=== PATIENT | female | born 1940 | race Caucasian/White ===

== ENCOUNTER → 2023-11-23 11:07 | Outpatient (BNVA) | payer MEDICARE, SELFPAY | PROVIDERS: PCP Family Medicine; Visit Provider Family Medicine | DX: M25.511 Pain in right shoulder (principal); Q79.60 Ehlers-Danlos syndrome, unspecified; R63.4 Abnormal weight loss; E78.5 Hyperlipidemia, unspecified; Z79.899 Other long term (current) drug therapy | CPT/HCPCS: 80053; 80061; 84443; 85025 ==

== ENCOUNTER 2023-11-30 11:20 | Emergency (ER) | payer MEDICARE, OTHER, SELFPAY ==
[2023-11-30 11:21] VITALS: PULSE 71; RESP 16; TEMP 36.7; O2SAT 95; BMI 20.5
[2023-11-30 11:29] VITALS: BP 167/107
[2023-11-30] MEDS: tetracaine 0.5% Op Soln 4 mL Btl 1 DROP EYE-RIGHT (12:05)
[2023-11-30] MEDS: fluorescein 1 mg Strip EYE-RIGHT (12:05)
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
--- NOTE | 2023-12-01 10:28 | DCPLANNER ---
I faxed all patients paperwork from this visit on 12/01/[address] Delarosa eye office in [place]. Fax number is [phone]. THis clinic will contact patient.
== END 2023-11-30 12:21 | disposition home or self-care (01) ==
PROVIDERS: Emergency Provider Emergency Medicine; PCP Family Medicine
DX: M47.816 Spondylosis without myelopathy or radiculopathy, lumbar region (principal); Z98.1 Arthrodesis status; S05.02XA Injury of conjunctiva and corneal abrasion without foreign body, left eye, initial encounter; Z79.82 Long term (current) use of aspirin; X58.XXXA Exposure to other specified factors, initial encounter
CPT/HCPCS: 99203; 99283

== ENCOUNTER → 2023-12-05 15:42 | Outpatient (BNVA) | payer MEDICARE, OTHER, SELFPAY | PROVIDERS: PCP Family Medicine; Visit Provider Family Medicine | DX: J32.9 Chronic sinusitis, unspecified (principal); I77.4 Celiac artery compression syndrome | CPT/HCPCS: 87070 ==

== ENCOUNTER → 2023-12-19 11:24 | Outpatient (BNVA) | payer MEDICARE, OTHER, SELFPAY | PROVIDERS: PCP Family Medicine; Referring Provider Family Medicine; Visit Provider Physician Assistant | DX: M19.011 Primary osteoarthritis, right shoulder | CPT/HCPCS: 73030; 99204 ==

== ENCOUNTER 2024-01-02 10:21 | Outpatient (CLI) | payer MEDICARE, OTHER, SELFPAY ==
--- NOTE | 2024-01-02 10:30 | CT_ITS ---
WS: [id number] CT RIGHT SHOULDER, NONCONTRAST HISTORY: RIGHT REVERSE TOTAL SHOULDER ARTHROPLASTY Technique: All CT scans at [facility] use at least one of these dose optimization techniques: automated exposure control; mA and/or kV adjustment per patient size (includes targeted exams where dose is matched to clinical indication); or iterative reconstruction. DLP: 223.40 mGy.cm COMPARISON: Radiographs 12/19/2023 Mild AC joint arthritis. No fracture. Moderate narrowing the glenohumeral joint. Osteophytic ridging and cupping of the glenoid. There is bone upon bone along the inferior glenoid articulation. Very sli ghtly high riding humeral head. There is a very large joint effusion surrounding the humeral head. Th ere is fluid extending into the subscapularis recess with subacromial and subdeltoid bursal distentio n. Severe atrophy of the rotator cuff muscles, including the infraspinatus, supraspinatus and subscapula ris. The teres minor with only mild atrophy. There is a large amount of fluid extending along the bod y of the subscapularis tendon. IMPRESSION: 1. Moderate to severe glenohumeral joint narrowing and arthropathy. 2. Mild AC joint arthritis. 3. Marked atrophy of the rotator cuff muscles. Least involvement of the teres minor. 4. Large amount of fluid surrounding the humeral head. Numerous bursa are distended and there is a l arge amount of fluid extending along the subscapularis tendon.
== END 2024-01-02 10:22 | disposition home or self-care (01) ==
LOC: RAD 10:21
PROVIDERS: PCP Family Medicine; Visit Provider Physician Assistant
DX: M19.011 Primary osteoarthritis, right shoulder (principal); M62.511 Muscle wasting and atrophy, not elsewhere classified, right shoulder; M25.411 Effusion, right shoulder
CPT/HCPCS: 73200

== ENCOUNTER → 2024-01-09 16:06 | Outpatient (BNVA) | payer MEDICARE, OTHER, SELFPAY | PROVIDERS: PCP Family Medicine; Visit Provider Family Medicine | DX: Z01.818 Encounter for other preprocedural examination (principal) | CPT/HCPCS: 80053; 81003; 85025 ==

== ENCOUNTER → 2024-01-10 | Outpatient (BNVA) | payer MEDICARE, OTHER, SELFPAY | PROVIDERS: PCP Family Medicine; Visit Provider Family Medicine | DX: Z01.818 Encounter for other preprocedural examination (principal); Z79.899 Other long term (current) drug therapy | CPT/HCPCS: 87086 ==

== ENCOUNTER → 2024-01-16 09:10 | Outpatient (BNVA) | payer MEDICARE, OTHER, SELFPAY | PROVIDERS: PCP Family Medicine; Visit Provider Anesthesiology Pain Medicine | DX: Z98.1 Arthrodesis status; M47.816 Spondylosis without myelopathy or radiculopathy, lumbar region | CPT/HCPCS: 99214 ==

== ENCOUNTER 2024-01-22 18:16 | Observation (INO) | payer MEDICARE, OTHER, SELFPAY ==
[2024-01-22] VITALS (14 sets, daily range): BP systolic 119–193; BP diastolic 64–95; PULSE 59–109; RESP 11–20; TEMP 36.1–37.4; O2SAT 90–98; BMI 19.9
[2024-01-22] MEDS: lactated ringers 500 ML IV (12:42)
[2024-01-22] MEDS: sodium chloride 0.9% 1,000 ML 30 ML IV (12:42)
[2024-01-22] MEDS: acetaminophen 1,000 MG/100 ML PIGGYBACK 400 MG IV (12:43)
[2024-01-22] MEDS: scopolamine 1.5 Patch 1 PATCH TRANSDERMA (12:49)
[2024-01-22] MEDS: ketorolac 30 mg/mL INJ IVP (12:50)
[2024-01-22 13:34] LABS: Basophils # 0.1 10^3/uL (0.0-0.1); Basophils % 1.1 %; Eosinophils # 0.2 10^3/uL (0.0-0.8); Eosinophils % 2.9 %; Hematocrit 37.7 % (36-47); Lymphocytes # 1.6 10^3/uL (0.8-4.8); Lymphocytes % 28.2 %; Mean Corpuscular HGB Conc 32.6 g/dL (30-55); Mean Corpuscular Hemoglobin 31.9 pg (27-33); Mean Corpuscular Volume 97.9 fl (85-98); Mean Platelet Volume 9.6 fL (7.4-10.4); Monocytes # 0.4 10^3/uL (0.2-0.9); Monocytes % 7.7 %; Neutrophils # 3.34 10^3/uL (1.8-7.7); Neutrophils % 59.9 %; Nucleated Red Blood Cells % 0 %; Platelet Count 276 10^3/cmm (157-399); Red Blood Count 3.85 10^6/uL (3.85-5.65); Red Cell Distribution Width 13.4 % (12.1-15.1); White Blood Count 5.57 10^3/uL (3.29-11.43)
[2024-01-22] MEDS: midazolam 1 mg/mL INJ 2 mL 2 MG IVP (13:55)
[2024-01-22 13:59] LABS: Anion Gap 14.9 (5-19); Blood Urea Nitrogen 9 mg/dL (8-23); Calcium 8.9 mg/dL (8.5-10.5); Carbon Dioxide 29 mmol/L (22-29); Chloride 101 mmol/L (98-107); Glucose 92 mg/dL (65-115); Osmolality Calculated 290 mOsm/kg (285-295); Potassium 3.9 mmol/L (3.5-5.1); Sodium 141 mmol/L (136-145)
--- NOTE | 2024-01-22 14:08 | SUR.PREOP ---
1359-Patient connected to monitor and a timeout was completed at bedside with Dr Galeas. A block was performed to right shoulder Patient tolerated well
--- NOTE | 2024-01-22 14:27 | ANES.PREANE2 ---
Pre-Anesthetic Assessment Height/Weight: Height 1.57 m Weight 49.442 kg Temp Pulse Resp BP Pulse Ox O2 Del Method 99.3 F 88 17 119/83 93 Room Air 01/22/24 12:21 01/22/24 12:21 01/22/24 12:21 01/22/24 12:21 01/22/24 12:21 01/22/24 12:21 Operation Date: 01/22/24 13:40 Proposed Procedures p Total Reverse Shoulder Arthroplasty(Right) - Lokesh Chase, DO Was Beta Olivier taken within 24 hours: N/A Was Clonidine taken within 24 hours: N/A Last intake: Intake Last Liquid Date 01/21/24 Last Liquid Time 20:00 Last Solid Date 01/21/24 Last Solid Time 20:00 Social No alcohol and No tobacco Exam alert, oriented x 3, clear to auscultation bilaterally and regular rate & rhythm Airway Submandibular: within normal limits Cervical ROM: Other Mallampati: Class II Dentition: false Comments: Comments: Limited neck ROM. Upper denture, lower bridge History/ROS No significant history except as noted and No significant complaints CV/HEM Hypertension Metabolic Hyperlipidemia [facility] [place]/skel Doc Danlos syndrome Anesthetic Plan ASA status: 3 Anesthesia: General and Regional (specify below) Other: Interscalene block for post-op pain Risk of > 500 ml blood loss (7ml/kg in children): No Medications/Allergies Home Medications Medication Instructions Recorded Confirmed Last Taken Type ascorbate calcium (vitamin C) 500 500 mg PO DAILY 11/23/23 01/22/24 01/20/24 History mg tablet atorvastatin 20 mg tablet 20 mg PO DAILY 11/23/23 01/22/24 01/22/24 06:00 History azelastine 137 mcg (0.1 %) nasal 2 spray intranasal BID 11/23/23 01/22/24 01/21/24 History spray aerosol carisoprodol 350 mg tablet 350 mg PO DAILY 11/23/23 01/22/24 01/21/24 History cholecalciferol (vitamin D3) 325 325 mcg PO DAILY 11/23/23 01/22/24 01/21/24 History mcg (13,000 unit) capsule diltiazem HCl 240 mg capsule,24 240 mg PO QAM 11/23/23 01/22/24 01/22/24 06:00 History hr,extended release gabapentin 100 mg capsule 100 mg PO DAILY 11/23/23 01/22/24 01/21/24 History isosorbide mononitrate 60 mg 60 mg PO QAM 11/23/23 01/22/24 01/21/24 History tablet,extended release 24 hr loratadine 10 mg tablet (Allergy 10 mg PO DAILY 11/23/23 01/22/24 01/21/24 History Relief (loratadine)) meloxicam 7.5 mg tablet 7.5 mg PO DAILY 11/23/23 01/22/24 01/21/24 History polyethylene glycol 3350 17 4 g PO DAILY 11/23/23 01/22/24 01/20/24 History gram/dose oral powder (Miralax) quercetin 500 mg capsule 500 mg PO DAILY 11/23/23 01/22/24 01/21/24 History tramadol 50 mg tablet 50 mg PO BID PRN Pain 11/23/23 01/21/24 01/19/24 History triprol-PE 10 mg-DM 20 mg-acetamin 20 ml PO DAILY 11/23/23 01/21/24 Unknown History 650 mg-GG 400mg/20mL(d) liquids,seq (Mucinex Fast-Max Cold-Nghtft) vitamin B complex (B 1 tab PO DAILY 11/23/23 01/22/24 01/21/24 History Complex-Vitamin B12 tablet) zinc acetate 25 mg (zinc) capsule 25 mg PO DAILY 11/23/23 01/21/24 01/18/24 History Allergies Allergy/AdvReac Type Severity Reaction Status Date / Time vancomycin Allergy Intermediate Rash Verified 01/22/24 12:09 Current Medications Generic Name Dose Route Start Last Admin Trade Name Freq PRN Reason Stop Dose Admin Sodium Chloride 1,000 mls @ 30 mls/hr 01/22/24 12:15 01/22/24 12:42 Sodium Chloride 0.9% IV 01/23/24 12:14 30 mls/hr .Q24H KVNG Administration Midazolam HCl 2 mg 01/22/24 12:01 01/22/24 13:55 Midazolam 1 Mg/Ml Inj 2 Ml IVP 2 mg ONCE PRN Administration Preop Anxiety PFSH Anesthesia Medical History Doc-Danlos disease Family History Father Doc-Danlos syndrome Mother Alcohol dependence Social History Smoking and tobacco/nicotine status: never used tobacco/nicotine Alcohol intake: current Alcohol type: beer Substance/Drug Use: never Lives independently: Yes Household members: none Number of children: 4 Current occupational status: 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
--- NOTE | 2024-01-22 14:41 | W.PM.OPSFHP ---
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 PLANNED PROCEDURE: Operation Date: 01/22/24 13:40 Proposed Procedures p Total Reverse Shoulder Arthroplasty(Right) - Lokesh Lopez DO Medications/Allergies* Home Medications Medication Instructions Recorded Confirmed Type ascorbate calcium (vitamin C) 500 500 mg PO DAILY 11/23/23 01/22/24 History mg tablet atorvastatin 20 mg tablet 20 mg PO DAILY 11/23/23 01/22/24 History azelastine 137 mcg (0.1 %) nasal 2 spray intranasal BID 11/23/23 01/22/24 History spray aerosol carisoprodol 350 mg tablet 350 mg PO DAILY 11/23/23 01/22/24 History cholecalciferol (vitamin D3) 325 325 mcg PO DAILY 11/23/23 01/22/24 History mcg (13,000 unit) capsule diltiazem HCl 240 mg capsule,24 240 mg PO QAM 11/23/23 01/22/24 History hr,extended release gabapentin 100 mg capsule 100 mg PO DAILY 11/23/23 01/22/24 History isosorbide mononitrate 60 mg 60 mg PO QAM 11/23/23 01/22/24 History tablet,extended release 24 hr loratadine 10 mg tablet (Allergy 10 mg PO DAILY 11/23/23 01/22/24 History Relief (loratadine)) meloxicam 7.5 mg tablet 7.5 mg PO DAILY 11/23/23 01/22/24 History polyethylene glycol 3350 17 4 g PO DAILY 11/23/23 01/22/24 History gram/dose oral powder (Miralax) quercetin 500 mg capsule 500 mg PO DAILY 11/23/23 01/22/24 History tramadol 50 mg tablet 50 mg PO BID PRN Pain 11/23/23 01/21/24 History triprol-PE 10 mg-DM 20 mg-acetamin 20 ml PO DAILY 11/23/23 01/21/24 History 650 mg-GG 400mg/20mL(d) liquids,seq (Mucinex Fast-Max Cold-Nghtshft) vitamin B complex (B 1 tab PO DAILY 11/23/23 01/22/24 History Complex-Vitamin B12 tablet) zinc acetate 25 mg (zinc) capsule 25 mg PO DAILY 11/23/23 01/21/24 History Allergies/Adverse Reactions Allergy/AdvReac Type Severity Reaction Status Date / Time vancomycin Allergy Intermediate Rash Verified 01/22/24 12:09 Current Medications: Generic Name Dose Route Start Last Admin Trade Name Freq PRN Reason Stop Dose Admin Sodium Chloride 1,000 mls @ 30 mls/hr 01/22/24 12:15 01/22/24 12:42 Sodium Chloride 0.9% IV 01/23/24 12:14 30 mls/hr .Q24H KVNG Administration Midazolam HCl 2 mg 01/22/24 12:01 01/22/24 13:55 Midazolam 1 Mg/Ml Inj 2 Ml IVP 2 mg ONCE PRN Administration Preop Anxiety Pertinent History/Comorbid Conditions* Medical History (Updated 12/19/23 @ 12:49 by PORTIA Greene) Doc-Danlos disease Family History (Updated 11/23/23 @ 10:36 by Halley العلي MD) Alcohol dependence Mother Doc-Danlos syndrome Father Social History Smoking and tobacco/nicotine status: never used tobacco/nicotine Alcohol intake: current Alcohol type: beer Substance/Drug Use: never Lives independently: Yes Household members: none Number of children: 4 Current occupational status: 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 Patient also just preoperatively received a preoperative block unable to fully assess motor and sensory preop. Referred to most recent office H&P for full examination Recommendations Surgery/Procedure today Other Plans: Plan to proceed to the OR today for right reverse total shoulder arthroplasty. She understands the ins and outs procedure risk benefits complication alternatives with surgery and through shared decision make elects proceed with surgical intervention. All questions answered. Coding Level of Care Code Acute Code for Edwin Paige
[2024-01-22] MEDS: ceFAZolin 2,000 MG in sodium chloride 0.9% (plus) 50 ML 100 MG IV ×3 (15:20→22:29)
[2024-01-22] MEDS: tranexamic acid 1,000 mg/10mL SDV 1000 MG IV (15:55)
--- NOTE | 2024-01-22 18:22 | XRR_ITS ---
PROCEDURE INFORMATION: Exam: XR Right Shoulder Exam date and time: 01/22/2024 6:32 PM Age: 83 years old Clinical indication: Device placement; Joint fixation hardware; Prior surgery; Surgery date: Post-operative (0-2 days); Surgery type: Post op RT shoulder; Additional info: S/P R reverse tsa, ap, grashey, scap y TECHNIQUE: Imaging protocol: Radiologic exam of the right shoulder. Views: 2 or more views. COMPARISON: CT shoulder RT wo con* [id number] 01/02/2024 10:39 AM FINDINGS: Bones/joints: Right shoulder arthroplasty changes in place with probable postsurgical air. Soft tissues: Normal. XR/XR shoulder RT min 2V* [id number] IMPRESSION: Right shoulder arthroplasty changes in place with probable postsurgical air.
--- NOTE | 2024-01-22 18:25 | P.OP_ITS ---
Operative Report Date of procedure: January 22, 2024 Surgeon: Lokesh Lopez DO Procedure: Surgeon: Lokesh Lopez DO Clinical Immunologist: Vick Lopez PA-C: PA was necessary for assistance in this case with arm positioning retraction and protection of neurovascular structures as well as assistance in implantation wound closure and dressing application. 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 Same Procedure done:? Right?reverse?total shoulder arthroplasty Implants:? [employer]?reverse?total shoulder arthroplasty comprehensive system Size 11 mm mini humeral stem 36 mm glenosphere diameter +3.5 mm offset Glenosphere mini baseplate medium augmented Central screw?6.5 mm by 20 mm Fixed locking screws (25 mm, 15 mm, 15 mm, 15 mm) Standard mini humeral tray with +0 mm polyethylene thickness Surgeon:? Lokesh Lopez DO Estimated blood loss:? 100mL IV fluids:? See anesthesia record Urine output:? No Grewal Complications:? None Findings:? See operative report narrative Condition: stable Disposition: floor Brief History:? Pt is a pleasant 83-year-old female who is worked up in the outpatient setting for chronic Right shoulder arthrtitis.? Pt has failed conservative treatment and? was interested in further treatment options we talked about? continued nonoperative versus operative intervention given pt age as well as rotator cuff weakness and dysfunction on examination would recommend a Right?reverse?total shoulder arthroplasty.? Pt has been medically optimized and cleared for surgery by the anesthesia department.? Through shared decision-making pt like to proceed with a Right?reverse?total shoulder arthroplasty.? All questions been answered at this time once again pt understands the risk benefits complication alternatives the treatment option understanding risk of surgery pt agrees to proceed.? All questions answered. Procedure:? Patient seen evaluated in the preoperative holding area.? Consent was reviewed and signed with patient once again detailed out the ins and outs of the procedure.? Correct extremity was marked.? Final questions answered.? Patient was seen evaluated by Anesthesia Department once cleared for surgery pt was taken back to the operative suite.? pt was placed in supine position all bony prominences well-padded patient was appropriate secured to the bed pt underwent anesthesia per the anesthesia department once appropriately anesthetized he was then subsequently set into a lazy beachchair position utilizing our standard OR table.? Once we confirmed appropriate positioning we then subsequently prepped and draped the Right upper extremity in standard orthopedic fashion.? Final timeout performed.? Patient received appropriate preoperative antibiotics. Standard deltopectoral approach was then made just lateral to the coracoid.? Hydrogen peroxide was bathed over the initial skin incision for P acnes prevention and then wiped with a wet Ray-Nina to clear this off. I utilized electrocautery to maintain exact hemostasis throughout my dissection.? I subsequently identified the cephalic vein dissected this out carefully and this was taken medially with Cobell retractor and I entered the deltopectoral interval.? Next I released the clavipectoral fascia and at this point time identified the bicep tendon.? This was then isolated and I opened up the bicipital groove within the interval taken this all the way to its insertion site.? I subsequently released the bicep tendon all this was subsequently maintained I then performed under appropriate tension of bicep tenodesis to the pectoralis muscle and fascia.? The proximal end of the tendon was then resected.? Of note patient had significant attenuation of subscapularis tendon as well as tearing of rotator cuff.? I then subsequently performed a subscapularis remanent peel off of the lesser tuberosity this was tagged with 0 Vicryl suture and utilized for manipulation throughout the case.? I then subsequently performed a complete release in standard fashion with care to stay directly onto bone and protecting maxillary nerve throughout the case.? Once standard residual release was performed I then protected the entirety of the humeral head and subsequently began with my humeral stem prep. Canal finder was used just off the articular margin and canal centralizer was satisfactory.? I then subsequently broached up to appropriate depth and canal fit which was determined to be 11.? 11 canal reamer was left on and subsequently brought in plan to guide of 30 degrees retroversion was then placed with my cutting guide pinned into appropriate position and making sure my rotation and version was appropriate once satisfactory and pinned in the place the intramedullary canal reamer was then subsequently removed and an oscillating saw was then used to perform my humeral head resection.? This was then subsequently removed.? I then sequentially broached up to appropriate size which was a size 11 mm humeral stem with care to once again maintained my appropriate version.? Once I was satisfied with this I then placed the metal cap on the stem in place to maintain appropriate integrity of the humeral head while performing work on the glenoid.??Next proceeded with glenoid exposure Next I then placed appropriate retraction posterior inferior posterior superior as well as anterior.? I had excellent visualization of the glenoid at this point time musa my appropriate position.? I utilized electrocautery and remove the entirety of the labrum so I had full visualization of the glenoid.? I then utilized the [employer] comprehensive targeting guide within 10 degree tilt.? Central guidepin was then inserted and confirmed to be in appropriate position, once satisfied with this placement I then introduced my reamer.given patient's severe arthritis and where patient had considerable glenoid retroversion as well as superior inclination of the glenoid. As result it was determined patient would need a medium augmented baseplate. I then subsequently utilized [employer] system for augmented reaming. This was utilized as I was concerned further reaming would weaken patient's glenoid and he is already medialized quite a bit from his preoperative x-rays. As result I only reamed 50% of the inferior portion of the glenoid in preparation then utilized [employer] augmented reaming guides this subsequently had appropriate scraping of the superior border of the glenoid to accommodate for my medium baseplate. I then subsequently opened up our porous glenosphere mini baseplate with medium augmented this was impacted in appropriate position and rotation next I then subsequently drilled and measured my central screw and placed in appropriate length 20 mm central screw.? This had excellent fixation and purchase.? At this point time I are removed any small residual osteophytes inferiorly and at this point then I subsequently drilled measured and placed 4 locking screws circumferentially around the mini baseplate size screws were 25 mm, 15 mm, 15 mm, 15 mm.? These all had excellent fixation and I satisfied with baseplate .? Patient had excessive fights anteriorly as well as inferior hide utilize rongeur to rongeur off these fights to accommodate for appropriate seating of the glenosphere. standard 36 mm glenosphere and set this with 3.5 mm of inferior offset to help appropriately cover the inferior aspect of the glenoid. Next I then opened up our glenosphere 36 diameter set this to the appropriate offset D giving us roughly 3.5 mm of offset inferiorly this was then impacted and had excellent fixation.? Utilize a tonsil as well as by hand and the glenosphere was found to have excellent fixation on the glenoid baseplate. I then subsequently trialed with a standard humeral tray. And then I subsequently placed the appropriate trial humeral tray which was trialed with a standard offset onto my trial 11 mm humeral stem this was subsequently reduced.? I attempted to trial with a +3 and this was significantly to tight and could not even be reduced and as result determined patient standard offset would be appropriate as he had excellent range of motion and excellent stability. ? This was determined to be my final implant.? I then subsequently dislocate the shoulder.? I then subsequently removed the trial implantations of the humerus.? Final implants were called and open for of a size 11 mini humeral stem as well as a +0 polyethylene and mini humeral tray.? This was opened and set up appropriately on the back table.? I then subsequently impacted the mini humeral stem size 11 and appropriate position which was exact as our trial implantation once again maintaining our appropriate version that was preset and marked and then next I subsequently dried the trunnion and impacted the appropriate humeral tray with +0 mm thickness poly.? This was then subsequently reduced and had excellent fixation range of motion and stability with appropriate tensioning.? No evidence of instability was noted.? Perform thorough irrigation of the joint saline. Vanco powder was not used secondary to patient's allergy. I then subsequently closed the subcutaneous layer with 0 and 2-0 Vicryl suture a and jemma. A AILEEN dressing was then applied.? Sling applied. Patient was then awakened from anesthesia and taken to PACU in stable condition.? Patient tolerated procedure without any complications. Disposition: Patient taken to PACU in stable condition recovering well will be admitted to the floor postoperatively internal medicine will be on board for medical management.? Patient will be nonweightbearing to the Right shoulder.? Sling on in place.? Patient will receive appropriate postoperative pain medication DVT prophylaxis on the floor.? Will receive appropriate discharge structure as well as pain medication DVT prophylaxis.? We will work with PT/OT.?Patient to follow-up with me in the office in 2 weeks.
--- NOTE | 2024-01-22 18:49 | P.BOP_ITS ---
Date of Procedure: [January 22, 2024] Surgeon: [Dr. Lopez DO] [place] Operator(s): [Vick Lopez PA-C] Procedure(s) performed: [Right reverse total shoulder arthroplasty] Findings of the procedure(s): [Right rotator cuff arthropathy and arthritis of right glenohumeral joint] Estimated blood loss: [100 ml] Specimen(s) removed: [Humeral head] Post-operative diagnosis: [Right rotator cuff arthropathy and arthritis of right glenohumeral joint]
--- NOTE | 2024-01-22 18:51 | PM.PACU ---
PACU note Narrative: Patient is an 83-year-old female just underwent a right reverse total shoulder arthroplasty. Patient transferred to PACU in stable condition. Pain is well controlled. shoulder Dressing on , dry and in place. Patient's operative arm is in a shoulder immobilizer. Patient is awake and alert and able to respond to my questions accordingly. Patient's fingers are warm with good perfusion. pt able to wiggle fingers. Normal cap refill under 2 seconds. Unable to assess further range of motion in arm due to sling. Unable to assess sensation due to residual localized anesthetic. Exam: awake Disposition: admitted
--- NOTE | 2024-01-22 19:56 | ANE.PACU2 ---
Inpatient post-anesthesia follow up: Airway intact: Yes Vital signs: Temperature 97.4 F Pulse Rate 82 Respiratory Rate 14 Blood Pressure 151/72 Pulse Oximetry 91 Oxygen Delivery Me thod Nasal Cannula Oxygen Flow Rate 6 Fraction of Inspir ed Oxygen Hydration adequate: Yes Nausea and vomiting: No Pain level: Other Pain level: Denies pain Mental status: Baseline
[2024-01-22] MEDS: tranexamic acid 1,000 MG/100 ML PREMIX 600 MG IV (21:50)
--- NOTE | 2024-01-22 22:03 | PC.NURSE ---
Patient refusing SCDs, Tylenol, and the rest of post-op vitals. Patient wanting to leave AMA approximately 2129. Patient stated I'm going home. This is not care. Look at these blankets. I can take better care of myself at home. Patient had asked for more blankets twice earlier in shift, stating that she was cold. Nurse provided blankets and OUTDOOR EDUCATION TEACHER provided blankets later as well per patient request. Patient now asking for blankets to be removed. I stated to patient I would be happy to to help you take some of the blankets off. Patient also stated I called for help and nobody came. Patient's call light was not going off. Patient stated, I had to walk myself to the bathroom, I had to go so bad I couldn't stand it, and I had to clean my own shit off the toilet. I, again, stated to patient I would have been happy to help with that, but your call light was not going off. Patient reeducated how to use call light and I tied it around bed rail to prevent it from falling or getting lost, as patient also stated that she could not find her call light in all of the blankets. Patient got to the floor from surgery approximately 1929. Since getting to the floor from surgery, patient had been taken to the bathroom once by the OUTDOOR EDUCATION TEACHER and once by this nurse. I personally had been in the patient's room two times in the period between 1929 and 2129. OUTDOOR EDUCATION TEACHER, [place], states she was in the patient's room 5 times in that period. OUTDOOR EDUCATION TEACHER had provided patient with jello and water. Patient states she just sat the jello there and walked off. I asked patient if she needs help opening the jello and she stated no, I can get it. Dr. Lopez notified of patient wanting to leave AMA, and stated tell the patient I highly advise against it. Patient educated on need for post-op antibiotics and physical therapy to prevent complications. Patient agreed to stay. Patient stated I understand. I have a daughter that is a nurse and I know you guys are understaffed. Patient asking for something to help her sleep. Dr. Lopez notified and ordered MAVERICK Cedeno.
[2024-01-22] MEDS: lactated ringers 1,000 ML 75 ML IV (22:29)
[2024-01-22] MEDS: methocarbamol 500 mg Tablet PO (22:55)
[2024-01-22] MEDS: oxyCODONE 5 mg IR Tab/Cap PO (22:55)
[2024-01-23] VITALS (7 sets, daily range): BP systolic 133–171; BP diastolic 62–69; PULSE 70–93; RESP 16–18; TEMP 36.6–36.9; O2SAT 92–96
[2024-01-23] MEDS: HYDROmorphone 1 mg/mL INJ 1 mL IVP ×2 (01:03→04:07)
[2024-01-23] MEDS: HYDROmorphone 1 mg/mL INJ 1 mL 0.5 MG IVP (02:03)
--- NOTE | 2024-01-23 02:34 | P.CONIM_ITS ---
Providers/Reason For Consult 2 Consulting Physician/Specialty*: Marcia Suero MD/ Hospitalist Reason for Consult*: management of medical comorbidities Requesting Physician: Lokesh Lopez DO Attending Physician: Lokesh Lopez DO Primary Care Provider: Halley العلي MD History of Present Illness History of Present Illness Aga Lennon is a 83 year old female with a past medical history of Erler's Danlos syndrome, ? A fib vs SVT , h/o DVT , celiac trunk stenosis , recently moved to [place] from [place]. Currently admitted to the hospital on January 22, 2024 for a planned total reverse shoulder arthroplasty for severe degenerative joint disease. Patient underwent this procedure earlier today, tolerated it well, estimated blood loss of 100 cc. Hospitalist service consulted for management of medical comorbidities. Currently she is c/o pain at surgical site, 0.5 mg of Dilaudid IV has not helped her currently. Typically patient takes oxycodone 10 mg twice daily at home to help with chronic pain. Denies any complains of chest pain dyspnea palpitations syncope nausea vomiting or diarrhea at this present time. No recent fever or chills. Review of Systems 2 General: Reports: 10 or more systems reviewed and unremarkable except in HPI and below Const: Denies: fever(s), chills or body aches Eyes: Denies: change in vision, blurry vision or photophobia ENMT: Reports: hoarseness; Denies: throat pain, enlarged tonsils, odynophagia or nasal congestion Card: Denies: chest pain, palpitations, irregular heart rhythm, edema, swelling of feet/ankles, lightheadedness, pre-syncope, dyspnea on exertion or orthopnea Resp: Denies: dyspnea, productive cough, non-productive cough, wheezing, stridor, pain on inspiration, change in phlegm color, hemoptysis or chest congestion GI: Denies: abdominal pain, nausea, vomiting, hematemesis, coffee ground emesis, dysphagia, heartburn, diarrhea, constipation, GI cramping, change in stool character, hematochezia or melena : Denies: flank pain, difficulty voiding, dysuria, urinary frequency, urinary urgency, urinary hesitancy or hematuria Musc: Denies: neck pain, back pain, extremity pain, joint swelling, joint warmth or deformity Neuro: Denies: headache(s), numbness in extremities, weakness in extremities, sensory changes, difficulty walking, frequent falls, dizziness, vertigo, behavioral changes, Slurred speech present or seizure-like activity Psych: Denies: anxiety, depression, suicidal ideation or homicidal ideation Endo: Denies: polyuria, polydipsia, tired all the time, cold intolerance or hot flashes Clay/Lymph: Denies: easy bruising or easy bleeding Medications/Allergies Home Medications Medication Instructions Recorded Confirmed Last Taken Type ascorbate calcium (vitamin C) 500 500 mg PO DAILY 11/23/23 01/22/24 01/20/24 History mg tablet atorvastatin 20 mg tablet 20 mg PO DAILY 11/23/23 01/22/24 01/22/24 06:00 History azelastine 137 mcg (0.1 %) nasal 2 spray intranasal BID 11/23/23 01/22/24 01/21/24 History spray aerosol carisoprodol 350 mg tablet 350 mg PO DAILY 11/23/23 01/22/24 01/21/24 History cholecalciferol (vitamin D3) 325 325 mcg PO DAILY 11/23/23 01/22/24 01/21/24 History mcg (13,000 unit) capsule diltiazem HCl 240 mg capsule,24 240 mg PO QAM 11/23/23 01/22/24 01/22/24 06:00 History hr,extended release gabapentin 100 mg capsule 100 mg PO DAILY 11/23/23 01/22/24 01/21/24 History isosorbide mononitrate 60 mg 60 mg PO QAM 11/23/23 01/22/24 01/21/24 History tablet,extended release 24 hr loratadine 10 mg tablet (Allergy 10 mg PO DAILY 11/23/23 01/22/24 01/21/24 History Relief (loratadine)) meloxicam 7.5 mg tablet 7.5 mg PO DAILY 11/23/23 01/22/24 01/21/24 History polyethylene glycol 3350 17 4 g PO DAILY 11/23/23 01/22/24 01/20/24 History gram/dose oral powder (Miralax) quercetin 500 mg capsule 500 mg PO DAILY 11/23/23 01/22/24 01/21/24 History tramadol 50 mg tablet 50 mg PO BID PRN Pain 11/23/23 01/21/24 01/19/24 History triprol-PE 10 mg-DM 20 mg-acetamin 20 ml PO DAILY 11/23/23 01/21/24 Unknown History 650 mg-GG 400mg/20mL(d) liquids,seq (Mucinex Fast-Max Cold-Nghtshft) vitamin B complex (B 1 tab PO DAILY 11/23/23 01/22/24 01/21/24 History Complex-Vitamin B12 tablet) zinc acetate 25 mg (zinc) capsule 25 mg PO DAILY 11/23/23 01/21/24 01/18/24 History Allergies Allergy/AdvReac Type Severity Reaction Status Date / Time vancomycin Allergy Intermediate Rash Verified 01/22/24 12:09 Current Medications Generic Name Dose Route Start Last Admin Trade Name Freq PRN Reason Stop Dose Admin Acetaminophen 1,000 mg 01/22/24 19:57 01/22/24 21:50 Acetaminophen 500 Mg Tablet PO Not Given Q8H KVNG Chlorhexidine Gluconate 30 ml 01/22/24 21:00 01/22/24 21:32 Chlorhexidine Gluconate 0.12% Btl 473 Ml MUCOUS MEM Not Given QID KVNG Hydromorphone HCl 0.5 - 1 mg 01/22/24 19:57 01/23/24 01:03 Hydromorphone 1 Mg/Ml Inj 1 Ml IVP 0.5 mg Q3H PRN Administration Pain not managed by oral agent Sodium Chloride 1,000 mls @ 100 mls/hr 01/22/24 18:30 01/23/24 00:03 Sodium Chloride 0.9% IV 01/23/24 18:29 Not Given .Q10H KVNG Cefazolin Sodium 2,000 mg/ 50 mls @ 100 mls/hr 01/22/24 19:57 01/22/24 23:26 Sodium Chloride IV 01/23/24 13:59 Infused Q8H KNVG Infusion Protocol Lactated Ringer's 1,000 mls @ 75 mls/hr 01/22/24 19:57 01/22/24 22:29 Lactated Ringers IV 75 mls/hr .[id number] KVNG Administration Methocarbamol 500 mg 01/22/24 22:01 01/22/24 22:55 Methocarbamol 500 Mg Tablet PO 500 mg TID PRN Administration MUSCLE SPASMS Oxycodone HCl 5 - 10 mg 01/22/24 19:57 01/22/24 22:55 Oxycodone 5 Mg Ir Tab/Cap PO 5 mg Q4H PRN Administration Moderate To Severe Pain 1st PFSH Acute 2 PFSH: Medical History (Updated 01/23/24 @ 03:55 by Marcia Suero MD) Hypertension H/O deep venous thrombosis Doc-Danlos disease Family History Father Doc-Danlos syndrome Mother Alcohol dependence Social History Smoking and tobacco/nicotine status: never used tobacco/nicotine Alcohol intake: current Alcohol type: beer Substance/Drug Use: never Lives independently: Yes Household members: none Number of children: 4 Current occupational status: 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 Pets and animals: Yes Pets & animals: dog(s) Special kulwinder needs: No Agree to transfusion: Yes Vitals/I&O/Wt Last Vital Signs Temp 98.4 F 01/23/24 00:35 Pulse 93 01/23/24 00:35 Resp 16 01/23/24 02:03 BP 143/62 01/23/24 00:35 Pulse Ox 92 01/23/24 00:35 O2 Del Method Room Air 01/23/24 00:35 01/22/24 01/22/24 01/23/24 14:59 22:59 06:59 Intake Total 600 / 600 324.5 / 924.5 150 / 1074.5 Output Total 500 / 500 Balance 600 / 600 -175.5 / 424.5 150 / 574.5 Weight last 48 hrs Weight 49.442 kg Physical Exam 2 Narrative: General: No acute distress, AO x3 HEENT: PERRLA, pupils bilaterally equal and reactive, pallors not present Chest: Normal vesicular breath sounds, no added sounds, equal good air entry bilaterally CVS: S1-S2 regular, no murmurs, no tachycardia, no gallops, no rubs Abdomen: Soft, nontender, no organomegaly, bowel sounds present Neuro: No focal deficits, no facial deformity, AO x3, power 5/5 in all limbs Data 01/22/24 12:35 01/22/24 12:35 Other data: Radiology Impressions Shoulder X-Ray 01/22/24 18:22 IMPRESSION: Right shoulder arthroplasty changes in place with probable postsurgical air. Laboratory Results WBC 5.57 10^3/uL (3.29-11.43) 01/22/24 12:35 RBC 3.85 10^6/uL (3.85-5.65) 01/22/24 12:35 Hgb 12.30 g/dL (11.27-16.99) 01/22/24 12:35 Hct 37.7 % (36-47) 01/22/24 12:35 MCV 97.9 fl (85-98) 01/22/24 12:35 MCH 31.9 pg (27-33) 01/22/24 12:35 MCHC 32.6 g/dL (30-55) 01/22/24 12:35 RDW 13.4 % (12.1-15.1) 01/22/24 12:35 Plt Count 276 10^3/cmm (157-399) 01/22/24 12:35 MPV 9.6 fL (7.4-10.4) 01/22/24 12:35 Neut % (Auto) 59.9 % 01/22/24 12:35 Lymph % (Auto) 28.2 % 01/22/24 12:35 [place] % (Auto) 7.7 % 01/22/24 12:35 Eos % (Auto) 2.9 % 01/22/24 12:35 Baso % (Auto) 1.1 % 01/22/24 12:35 Neut # (Auto) 3.34 10^3/uL (1.8-7.7) 01/22/24 12:35 Lymph # (Auto) 1.6 10^3/uL (0.8-4.8) 01/22/24 12:35 [place] # (Auto) 0.4 10^3/uL (0.2-0.9) 01/22/24 12:35 Eos # (Auto) 0.2 10^3/uL (0.0-0.8) 01/22/24 12:35 Baso # (Auto) 0.1 10^3/uL (0.0-0.1) 01/22/24 12:35 Nucleated RBC % (auto) 0 % 01/22/24 12:35 Nucleated RBCs # 0.0 /100WBC 01/22/24 12:35 Sodium 141 mmol/L (136-145) 01/22/24 12:35 Potassium 3.9 mmol/L (3.5-5.1) 01/22/24 12:35 Chloride 101 mmol/L (98-107) 01/22/24 12:35 Carbon Dioxide 29 mmol/L (22-29) 01/22/24 12:35 Anion Gap 14.9 (5-19) 01/22/24 12:35 BUN 9 mg/dL (8-23) 01/22/24 12:35 Creatinine 0.8 mg/dL (0.5-0.9) 01/22/24 12:35 GFR Calculation Not Reportable 01/22/24 12:35 Glucose 92 mg/dL (65-115) 01/22/24 12:35 Calculated Osmolality 290 mOsm/kg (285-295) 01/22/24 12:35 Calcium 8.9 mg/dL (8.5-10.5) 01/22/24 12:35 Blood Type A Negative 01/22/24 12:35 Rho(D) Type Rh negative 01/22/24 12:35 Antibody Screen Positive 01/22/24 12:35 Antibody Identification Anti-D 01/22/24 12:35 Crossmatch See Detail 01/22/24 12:35 A&P Assessment and plan (1) Arthritis of right glenohumeral joint: S/p surgical intervention today Currently on Dilaudid 1 mg IV every 3 hours as needed, oxycodone 5 to 10 mg as needed every 4 hours as needed. 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 No reported history of valvular abnormalities. Reportedly patient has a history of celiac artery stenosis for which she required vascular surgical intervention few years ago. Denies any current abdominal pain nausea or vomiting. requests vascular surgery referral at discharge. (3) H/O deep venous thrombosis: History of DVT ~ 1 year ago. Patient states that she is developed DVT after undergoing an angiogram for evaluation of chest pain. Reportedly had clean coronaries however developed DVT shortly after. She was treated with Eliquis for 3 months. Also has a history of DVT in her 30s. She states that no cause was ever able to be ascertained at the time. She has never been recommended intermediate manager anticoagulation in the past. States she takes ASA at home (4) SVT (supraventricular tachycardia): Reports fast heart rate two days ago States she is on cardizem for tachycardia- unsure whether she has a diagnosis of A fib or not. Currently HR is controlled, transiently at 59 post operatively, otherwise trending between 72-1 09 today. Continue home dose of Cardizem 240 mg daily. Check baseline EKG to assess underlying rhythm. Per review of preop evaluation performed on January 09, 2024, patient was noted to have ST deviation on her EKG, however similar changes had been noted on an EKG 2 years prior at an outside institution. She underwent an angiogram to further evaluate an abnormal EKG, reportedly coronary angiogram did not show any obstructive CAD. She denies any current chest pain dyspnea or palpitations. Plan Hypertension: Patient reports she is on isosorbide mononitrate for hypertension. Continue this medication at home dose of 60 mg p.o. daily. Consult Attestations 2 Medical Necessity Statement: per admitting Coding Level of Care Code Acute Code for Chg Fwd Moderate MDM includes number and complexity of problems actively addressed during encounter, amount and/or complexity of data reviewed/ordered and described risk of complication, morbidity or mortality of management as documented Diagnoses Arthritis of right glenohumeral joint M19.011 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 H/O deep venous thrombosis Z86.718 SVT (supraventricular tachycardia) I47.10
[2024-01-23] MEDS: oxyCODONE 5 mg IR Tab/Cap PO (03:00)
--- NOTE | 2024-01-23 04:03 | ECG_ITS ---
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 Measurements Intervals [place] Rate: 77 P: 60 DE: 184 QRS: 56 QRSD: 90 T: 55 QT: 395 QTc: 448 Interpretive Statements SINUS RHYTHM NONSPECIFIC ST & T-WAVE ABNORMALITY No previous ECG available for comparison Electronically Signed On 01-23-2024 18:32:42 SATURATOR TENDER by Zac Torres M.D. [id number]
[2024-01-23] MEDS: ceFAZolin 2,000 MG in sodium chloride 0.9% (plus) 50 ML 100 MG IV (04:48)
[2024-01-23] MEDS: ketorolac 30 mg/mL INJ 15 MG IVP (04:48)
[2024-01-23] MEDS: acetaminophen 500 mg Tablet 1000 MG PO (04:48)
[2024-01-23 06:05] LABS: Basophils % 0.2 %; Hematocrit 34.9 % (36-47); Lymphocytes # 0.6 10^3/uL (0.8-4.8); Lymphocytes % 6.9 %; Mean Corpuscular HGB Conc 31.5 g/dL (30-55); Mean Corpuscular Hemoglobin 31.9 pg (27-33); Mean Corpuscular Volume 101.2 fl (85-98); Mean Platelet Volume 9.3 fL (7.4-10.4); Monocytes # 0.4 10^3/uL (0.2-0.9); Monocytes % 4.5 %; Nucleated Red Blood Cells % 0 %; Platelet Count 219 10^3/cmm (157-399); Red Blood Count 3.45 10^6/uL (3.85-5.65); Red Cell Distribution Width 13.4 % (12.1-15.1); White Blood Count 9.21 10^3/uL (3.29-11.43)
[2024-01-23 06:29] LABS: Anion Gap 14.4 (5-19); Blood Urea Nitrogen 8 mg/dL (8-23); Calcium 8.2 mg/dL (8.5-10.5); Carbon Dioxide 26 mmol/L (22-29); Chloride 103 mmol/L (98-107); Creatinine Clr Calc Pharmacy 43.7359; Glucose 135 mg/dL (65-115); Osmolality Calculated 288 mOsm/kg (285-295); Potassium 4.4 mmol/L (3.5-5.1); Sodium 139 mmol/L (136-145)
[2024-01-23] MEDS: aspirin 325 mg EC Tablet PO (08:28)
[2024-01-23] MEDS: multivitamin therapeutic Tablet 1 TAB PO (08:28)
[2024-01-23] MEDS: calcium carb-vit d 600mg/400unit 1 Tablet 1 EACH PO (08:28)
[2024-01-23] MEDS: dilTIAZem ER (24HR) 240 mg Capsule PO (08:29)
[2024-01-23] MEDS: methocarbamol 500 mg Tablet PO (08:29)
[2024-01-23] MEDS: docusate sodium 100 mg Capsule PO (08:29)
[2024-01-23] MEDS: isosorbide mononitrate ER 60 mg Tablet PO (08:29)
[2024-01-23] MEDS: iron polysaccharide complex 150 mg Capsule PO (08:29)
[2024-01-23] MEDS: gabapentin 100 mg Capsule PO (08:29)
[2024-01-23] MEDS: TRAMadol 50 mg Tablet PO (08:29)
[2024-01-23] MEDS: chlorhexidine gluconate 0.12% Btl 473 mL 30 ML MUCOUS MEM (08:38)
--- NOTE | 2024-01-23 08:49 | P.PN_ITS ---
<Statement entered by Lokesh Lopez DO - 01/24/24 22:01> Patient seen and examined as well as PASelvinC agree with PAs assessment and plan. This point in time patient is doing well pain controlled neurovascularly intact. Elects proceed with discharge home today once cleared by medicine. Will follow-up with patient in 2 weeks Lokesh Lopez DO Subjective 2 Subjective: Patient is an 83-year-old female that is 1 day postop right reverse total shoulder arthroplasty. No acute events overnight. Pain is controlled. Patient is able to tolerate p.o. food and fluids. Denies any fevers, nausea or vomiting. Vitals/I&O/Wt Last Vital Signs Temp 98.1 F 01/23/24 08:00 Pulse 78 01/23/24 08:00 Resp 16 01/23/24 08:00 BP 171/69 01/23/24 08:00 Pulse Ox 95 01/23/24 08:00 O2 Del Method Room Air 01/23/24 08:00 O2 Flow Rate 6 01/22/24 18:42 01/22/24 01/23/24 01/23/24 22:59 06:59 14:59 Intake Total 324.5 / 924.5 440 / 1364.5 100 / 100 Output Total 500 / 500 Balance -175.5 / 424.5 440 / 864.5 100 / 100 Weight last 48 hrs Weight 120 lb 14.4 oz Weight 109 lb Physical Exam 2 Const: COMMON NORMALS: no acute distress and alert Resp: COMMON NORMALS: normal respiratory effort and No retractions Cardio: COMMON NORMALS: Peripheral pulses 2+ throughout PERIPHERAL PULSES: Peripheral pulses 2+ throughout Extremity: NARRATIVE EXTREMITY EXAM: Right shoulder?patient in shoulder immobilizer. Dressing is on dry and intact. Skin and soft tissue around dressing is soft. No surrounding erythema or warmth. Sensation to hand intact. Radial pulse 2+. Full range of motion fingers. Neuro: SENSORIUM/ORIENTATION: Yes alert Skin: GENERAL SKIN EXAM: dry skin Data 01/23/24 05:54 01/23/24 05:54 A&P Assessment and plan (1) Status post reverse arthroplasty of shoulder: (2) Rotator cuff arthropathy of right shoulder: (3) Arthritis of right glenohumeral joint: Plan Plan: -Imaging and Labs reviewed -Hospitalist on board for medical management. -Keep right arm in Ultra sling. -NO active or Passive ROM -No weightbearing to Right arm -Pain control Pt is doing well 1 day postop Right reverse total shoulder arthroplasty. Pt is cleared by Orthopedics for discharge home today. Pt will be seen at Orthopedic clinic in 2 weeks for a post op followup appt. Attestations 2 Medical Necessity Statement*: Ongoing care for right reverse total shoulder arthroplasty Coding Level of Care Code Acute Code for Chg Fwd Diagnoses Status post reverse arthroplasty of shoulder Z96.619 Rotator cuff arthropathy of right shoulder M12.811 Arthritis of right glenohumeral joint M19.011
--- NOTE | 2024-01-23 10:01 | PC.CHAP ---
Pastoral Care Encounter/Spiritual Assessment Type of Contact [] Declined staff training and development manager visit [] Patient/Family/Request visit [] Outpatient visit [] Follow-up visit [] Physician referral [] Code/Alert [x] Routine visit [] Staff referral [] Actively dying [] Patient sleeping [] Family support [] [] Out of room [] Palliative care [] [] Receiving care in room [] Pre-surgical visit [] Trauma [] Long length of stay [] ICU visit [] Other: Relational/Emotional Strength [x] Patient feels connected with others/family/visitors/staff [] Distress [] Loneliness/isolation [] Abandonment Spirituality of Patient [x] Person of Marya [x] Attends Congregation of their Marya [x] Believes in Prayer [x] Reads Bible or Christianity materials [] There are Spiritual issues to be addressed Patternmaker Hand Interventions [x] Prayer [x] Active listening [x] Non-anxious presence [x] Spiritual/emotional support [] Crisis/trauma care [] Spiritual counseling [] Bereavement support [] Provided bereavement packet [] Provided Bible/devotional materials [] Provided toy/stuffed animal, coloring book to patient or family member [] Provided Communion [] Anointing/Procious [] Salvation [x] Completed spiritual assessment [] Other: Impact on Illness or Injury [] Angry [] Fearful [] Anxious [] Often cries [] Exhaustion [] Unable to work [] Unable to attend zoroastrian [] Unable to walk/stand [] Unable to read [] Unable to drive [] Unable to eat/drink [] Unable to sleep [] Unable to be with family [] Patient intubated [] Other: Summary Time spent with patient 10 min
--- NOTE | 2024-01-23 10:15 | P.DS_ITS ---
Discharge Providers Date of Admission: 01/22/24 18:16 Date of Discharge: January 23, 2024 Attending Provider at Admission: Lokesh Lopez DO Attending Provider at Discharge: Lokesh Lopez DO Primary Care Provider: Halley العلي MD Diagnoses at Discharge Discharge Diagnosis (1) Status post reverse arthroplasty of shoulder: Status: Acute (2) Rotator cuff arthropathy of right shoulder: Status: Resolved (3) Arthritis of right glenohumeral joint: Status: Resolved Reason for Visit Reason for Visit: M12.811 Brief History: Status post right reverse total shoulder arthroplasty Hospital Course Hospital Course Patient was brought to the preoperative area with plan for right reverse total shoulder arthroplasty seen evaluated by anesthesia once cleared for surgery taken back to the operative suite patient underwent anesthesia per anesthesia department pt underwent a [right ]reverse total shoulder arthroplasty without complications. Pt was subsequently taken to PACU in stable condition recovering well in PACU and was admitted to the floor postoperatively. Pt received appropriate postoperative pain medication DVT prophylaxis, perioperative antibiotics. Pt was instructed nonweightbearing to right upper extremity maintain sling work with PT/OT. Pt progressed well postoperatively labs were monitored daily dressing was changed as needed maintain marvin dressing with good seal throughout the hospitalization. Internal medicine was on board to assist with medical management. Patient did have complaints overnight with nursing and threatened of leaving AMA however she understood the importance of postoperative monitoring elected to stay. Patient subsequently on postoperative day [ 1] was determined that patient was stable for discharge from an orthopedic standpoint. Patient was subsequently discharged home. Given appropriate discharge instructions as well as pain medication DVT prophylaxis. Follow-up in the orthopedic office in 2 weeks. Physical Exam Const: COMMON NORMALS: no acute distress and alert Resp: COMMON NORMALS: normal respiratory effort and No retractions Cardio: COMMON NORMALS: Peripheral pulses 2+ throughout PERIPHERAL PULSES: Peripheral pulses 2+ throughout Extremity: NARRATIVE EXTREMITY EXAM: Right shoulder?patient in shoulder immobilizer. Dressing is on dry and intact. Skin and soft tissue around dressing is soft. No surrounding erythema or warmth. Sensation to hand intact. Radial pulse 2+. Full range of motion fingers. Marvin dressing on in place with good seal, axillary motor and sensations intact. Neuro: SENSORIUM/ORIENTATION: Yes alert Skin: GENERAL SKIN EXAM: dry skin Discharge Data Studies Completed and Pending Completed Studies During Hospitalization Category Date Time Status XR shoulder RT min 2V* [id number] Routine Exams 01/22/24 18:22 Completed Pending at discharge Category Date Time Status Antibody Identification Routine Lab 01/22/24 12:35 Results Basic Metabolic Panel AM LABS Lab 01/24/24 04:00 Ordered Basic Metabolic Panel AM LABS Lab 01/25/24 04:00 Ordered Complete Blood Count w/Auto AM LABS Lab 01/24/24 04:00 Ordered Complete Blood Count w/Auto AM LABS Lab 01/25/24 04:00 Ordered Leukocyte Reduced RBC Routine Lab 01/22/24 12:35 Results Type and Screen Routine Lab 01/22/24 12:35 Results Radiology Impressions Shoulder X-Ray 01/22/24 18:22 IMPRESSION: Right shoulder arthroplasty changes in place with probable postsurgical air. Laboratory Results WBC 9.21 10^3/uL (3.29-11.43) 01/23/24 05:54 RBC 3.45 10^6/uL (3.85-5.65) L 01/23/24 05:54 Hgb 11.00 g/dL (11.27-16.99) L 01/23/24 05:54 Hct 34.9 % (36-47) L 01/23/24 05:54 MCV 101.2 fl (85-98) H 01/23/24 05:54 MCH 31.9 pg (27-33) 01/23/24 05:54 MCHC 31.5 g/dL (30-55) 01/23/24 05:54 RDW 13.4 % (12.1-15.1) 01/23/24 05:54 Plt Count 219 10^3/cmm (157-399) 01/23/24 05:54 MPV 9.3 fL (7.4-10.4) 01/23/24 05:54 Neut % (Auto) 88.0 % 01/23/24 05:54 Lymph % (Auto) 6.9 % 01/23/24 05:54 [place] % (Auto) 4.5 % 01/23/24 05:54 Eos % (Auto) 0.0 % 01/23/24 05:54 Baso % (Auto) 0.2 % 01/23/24 05:54 Neut # (Auto) 8.10 10^3/uL (1.8-7.7) H 01/23/24 05:54 Lymph # (Auto) 0.6 10^3/uL (0.8-4.8) L 01/23/24 05:54 [place] # (Auto) 0.4 10^3/uL (0.2-0.9) 01/23/24 05:54 Eos # (Auto) 0.0 10^3/uL (0.0-0.8) 01/23/24 05:54 Baso # (Auto) 0.0 10^3/uL (0.0-0.1) 01/23/24 05:54 Nucleated RBC % (auto) 0 % 01/23/24 05:54 Nucleated RBCs # 0.0 /100WBC 01/23/24 05:54 Sodium 139 mmol/L (136-145) 01/23/24 05:54 Potassium 4.4 mmol/L (3.5-5.1) 01/23/24 05:54 Chloride 103 mmol/L (98-107) 01/23/24 05:54 Carbon Dioxide 26 mmol/L (22-29) 01/23/24 05:54 Anion Gap 14.4 (5-19) 01/23/24 05:54 BUN 8 mg/dL (8-23) 01/23/24 05:54 Creatinine 0.7 mg/dL (0.5-0.9) 01/23/24 05:54 GFR Calculation Not Reportable 01/23/24 05:54 Glucose 135 mg/dL (65-115) H 01/23/24 05:54 Calculated Osmolality 288 mOsm/kg (285-295) 01/23/24 05:54 Calcium 8.2 mg/dL (8.5-10.5) L 01/23/24 05:54 Blood Type A Negative 01/22/24 12:35 Rho(D) Type Rh negative 01/22/24 12:35 Antibody Screen Positive 01/22/24 12:35 Antibody Identification Anti-D 01/22/24 12:35 Crossmatch See Detail 01/22/24 12:35 Vitals Last Vital Signs Temp 98.1 F 01/23/24 08:00 Pulse 78 01/23/24 08:00 Resp 16 01/23/24 08:00 BP 171/69 01/23/24 08:00 Pulse Ox 95 01/23/24 08:00 O2 Del Method Room Air 01/23/24 08:00 O2 Flow Rate 6 03/04/24 18:42 Discharge Plan Discharge Patient Disposition: Home Condition: Stable Prescriptions: New aspirin 325 mg tablet 325 mg PO DAILY 14 Days Qty: 14 0RF oxycodone 5 mg tablet 5 mg PO Q6H PRN (Reason: pain postop) 7 Days Qty: 28 0RF clindamycin HCl 150 mg capsule 150 mg PO Q8H 10 Days Qty: 30 0RF Continued isosorbide mononitrate 60 mg tablet extended release 24 hr 60 mg PO QAM diltiazem HCl 240 mg capsule,extended release 24 hr 240 mg PO QAM tramadol 50 mg tablet 50 mg PO BID PRN (Reason: Pain) meloxicam 7.5 mg tablet 7.5 mg PO DAILY loratadine [Allergy Relief (loratadine)] 10 mg tablet 10 mg PO DAILY atorvastatin 20 mg tablet 20 mg PO DAILY gabapentin 100 mg capsule 100 mg PO DAILY carisoprodol 350 mg tablet 350 mg PO DAILY polyethylene glycol 3350 [Miralax] 17 gram/dose powder 4 g PO DAILY azelastine 137 mcg (0.1 %) aerosol,spray 2 spray intranasal BID Rx Instructions: administer into each nostril Mucinex Fast-Max Cold-Nghtshft 26-45-228-400 mg/20 mL liquid, sequential 20 ml PO DAILY cholecalciferol (vitamin D3) 325 mcg (13,000 unit) capsule 325 mcg PO DAILY zinc acetate 25 mg (zinc) capsule 25 mg PO DAILY ascorbate calcium (vitamin C) 500 mg tablet 500 mg PO DAILY vitamin B complex [B Complex-Vitamin B12] Tablet 1 tab PO DAILY quercetin 500 mg capsule 500 mg PO DAILY Discharge Orders: Discharge Order (Routine); Ordered 01/23/24 Ordered By: Lokesh Lopez Other Ambulatory Orders: Occupational Therapy Eval and Treat Outpatient (Order) Timeframe: 3 Days Facility: [facility] - Location: Occupational Therapy [place] Ordered By: Lokesh Lopez Referrals: Lokesh Lopez DO [Physician] - 02/06/24 3:30 pm Discharge Diet: Regular Discharge Activity: Limit activity as instructed Patient Instructions: Aspirin (By mouth), Oxycodone, Rapid Release (By mouth), Ondansetron (By mouth), Shoulder Arthroplasty (GEN) Activity Restrictions/Additional Instructions: Orthopedic discharge instructions: Keep dressing on and intact. You have a Marvin dressing with battery pack on it. The battery pack lasts for about 5 to 7 days and when battery goes you can remove dressing. If you are going to shower detach battery pack from dressing and then reattach after shower. After week marvin dressing can be completely removed and replaced with a Silverlon dressing Keep arm in shoulder sling for the next 6 weeks. To prevent frozen shoulder you can take arm out of sling and let it hang down and do pendulum swings. No active Range of motion. No weight-bear to the operative extremity. Ice and elevate as needed for pain and swelling Take pain medication as prescribed Take antinausea medication as needed Take aspirin as prescribed for blood clot prevention No baths or soaks Follow-up in the orthopedic office in 2 weeks Contact the office for any questions or concerns Discharge Attestations Time Spent in Discharge Care*: greater than 30 min Quality Metrics Clinical Quality Measures [ No reported AMI, CVA or VTE this stay] Coding Level of Care Code Acute Code for Chg Fwd Diagnoses Status post reverse arthroplasty of shoulder Z96.619 Rotator cuff arthropathy of right shoulder M12.811 Arthritis of right glenohumeral joint M19.011 Time Spent (min) 35
== END 2024-01-23 14:47 | disposition home or self-care (01) ==
LOC: MEDSURG 18:18
PROVIDERS: Physician Assistant; Admitting Provider Student in an Organized Health Care Education/Training Program; PCP Family Medicine; Visit Provider Student in an Organized Health Care Education/Training Program
PROC: (CPT 23472; principal; 2024-01-22 13:10)
DX: M19.011 Primary osteoarthritis, right shoulder (principal); I10 Essential (primary) hypertension; E78.5 Hyperlipidemia, unspecified; Q79.60 Ehlers-Danlos syndrome, unspecified; Z86.718 Personal history of other venous thrombosis and embolism
CPT/HCPCS: 23472; 36415; 73030; 80048; 80503; 85025; 86850; 86870; 86900; 86920; 93005; 97165; C1713; C1776; G0378; J0131; J0690; J1100; J1170; J1885; J2250; J2405; J2704; J2710; J2795; J3010; J3490; J7030; J7120

== ENCOUNTER → 2024-02-05 11:20 | Outpatient (BNVA) | payer MEDICARE, OTHER, SELFPAY | PROVIDERS: PCP Family Medicine; Visit Provider Family Medicine | DX: D64.9 Anemia, unspecified (principal); R07.9 Chest pain, unspecified | CPT/HCPCS: 82607; 82728; 83540; 85025 ==

== ENCOUNTER → 2024-02-06 15:47 | Outpatient (BNVA) | payer MEDICARE, OTHER, SELFPAY | PROVIDERS: PCP Family Medicine; Visit Provider Student in an Organized Health Care Education/Training Program | DX: Z96.611 Presence of right artificial shoulder joint | CPT/HCPCS: 73030; 99024 ==

== ENCOUNTER → 2024-03-04 15:29 | Outpatient (BNVA) | payer MEDICARE, OTHER, SELFPAY | PROVIDERS: PCP Family Medicine; Visit Provider Family Medicine | DX: R00.2 Palpitations (principal); I47.10 Supraventricular tachycardia, unspecified | CPT/HCPCS: 80053; 83735; 84443; 85025 ==

== ENCOUNTER 2024-03-14 10:11 | Outpatient (CLI) | payer MEDICARE, OTHER, SELFPAY ==
[2024-03-14 10:17] VITALS: BMI 19.7
--- NOTE | 2024-03-14 10:28 | ECG_ITS ---
[facility] Test Date: 2024-03-14 Pat Name: Aga Lennon Department: Room: Gender: Female Field Interviewer: : 1940 Requested By: Halley العلي Order Number: [id number] Colunga MD: Zac Torres M.D. Interpretive Statements NAME OF STUDY: LEXISCAN SESTAMIBI STRESS TEST INDICATION: Chest Pain PROCEDURE: At the baseline, the EKG revealed normal sinus rhythm. 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 Nonspecific ST changes in lead V4 to V6. The baseline heart was 84 bpm with a blood pressue of 146/69 mm of Hg Lexiscan was infused over a period of 20 seconds. A total of 0.4 milligrams of Lexiscan was infused. The stress phase was continued for a total of 5 minutes. Heart rate at the end of the stress phase was 102 bpm with a blood pressure 145/62 mm of Hg. The EKG at the peak infusion revealed more prominent ST depressions in lead V4 to V6 of 1-1 and [address] changes in the inferior leads Sestamibi was injected 20 seconds after the Lexiscan infusion. Heart rate at the end of the recovery phase was 101 bpm with a blood pressure of 156/60 mm of Hg. CONCLUSION: 1. Lexiscan infusion causing more prominent ST depressions in the anterolateral leads suggesting ischemia in the distribution of the left anterior descending artery 2. No LexiScan induced chest pain or cardiac arrhythmia 3. Normal blood pressure and heart rate response 4. Sestamibi/sestamibi perfusion scan pending; see separate report. Electronically Signed On 03-21-2024 8:16:01 CDT by Zac Torres M.D. [id number]
--- NOTE | 2024-03-14 10:28 | NMCV_ITS ---
NM abraham perf SPECT r/s* [id number] Aga Lennon Age: 83 Gender: F : 1940 Exam Date: 03/14/2024 11:11 Ordering Phys: Halley العلي MD Technologist: ROBERT Sellers Exam Location: [facility] Indications: CHEST PAIN STRESS TEST Please see separate stress test report in [facility] for full findings IMAGE PROTOCOL Rest/Stress 1 Lexiscan Day Radiopharmaceutical Dose (mCi) Administration Site Administered by Rest: Tc-99m 10.5 IV ROBERT Cuevas Sestamibi Stress:Tc-99m 32.3 IV ROBERT Cuevas Sestamibi Rest: 14-Mar-2024 60 Discovery 630 Stress: 14-Mar-2024 30 Discovery 630 0.4mg Lexiscan. Supine position only as patient was unable to lay prone. SPECT RESULTS Technical Quality: Excellent Raw Data Analysis: Normal Image Corrections: No attenuation or motion correction applied Summed Stress Score: 1 Summed Rest Score: 6 Summed Difference Score: 0 PERFUSION FINDINGS Small area of slightly decreased tracer uptake involving the mid inferolateral region with no significant reversibility FUNCTIONAL RESULTS (calculated via Gated SPECT) Stress Image LV EF (%): 87 Stress EDV (mL):79 TID: 1.08 Stress ESV (mL):10 FUNCTIONAL FINDINGS: Segmental wall motion analysis revealing no gross wall motion abnormalities IMPRESSIONS 1. Myocardial perfusion imaging revealing a small area of persistent decreased tracer uptake involving the mid inferolateral region suggestive of myocardial scarring versus attenuation artifact 2. Normal LV ejection fraction of 87%. 3. LV wall motion analysis revealing no gross wall motion abnormalities. 4. Normal LV volume Low probability for coronary ischemia, based on the above findings Dr Zac Torres MD FACC (Electronically Signed) Final Date: 14 March 2024 16:25 S
[2024-03-14] MEDS: regadenoson 0.4 Mg/5 ml Syringe 0.400000000000000022 MG IVP (11:59)
[2024-03-14 12:31] VITALS: BP 136/64; PULSE 98
== END 2024-03-14 10:12 | disposition home or self-care (01) ==
LOC: CDL 10:12
PROVIDERS: PCP Family Medicine; Visit Provider Family Medicine
DX: R07.9 Chest pain, unspecified (principal)
CPT/HCPCS: 36415; 78452; 93017; 96374; A9500; J2785

== ENCOUNTER → 2024-03-18 10:28 | Outpatient (BNVA) | payer MEDICARE, OTHER, SELFPAY | PROVIDERS: PCP Family Medicine; Referring Provider Family Medicine; Visit Provider Internal Medicine | DX: I47.10 Supraventricular tachycardia, unspecified (principal); I49.1 Atrial premature depolarization; I49.3 Ventricular premature depolarization; I47.20 Ventricular tachycardia, unspecified | CPT/HCPCS: 93246 ==

== ENCOUNTER → 2024-03-21 10:48 | Outpatient (BNVA) | payer MEDICARE, OTHER, SELFPAY | PROVIDERS: PCP Family Medicine; Visit Provider Physician Assistant | DX: Z96.611 Presence of right artificial shoulder joint | CPT/HCPCS: 73030 ==

== ENCOUNTER 2024-03-21 14:56 | Emergency (ER) | payer MEDICARE, OTHER, SELFPAY ==
[2024-03-21 15:14] VITALS: BP 99/51; TEMP 36.7; O2SAT 97; BMI 19.7
--- NOTE | 2024-03-21 15:26 | USR_ITS ---
PROCEDURE INFORMATION: Exam: US Duplex Right Lower Extremity Veins, Limited Exam date and time: 03/21/2024 3:44 PM Age: 83 years old Clinical indication: Pain; Leg, lower; Right; Additional info: Concern for dvt, HX of dvt TECHNIQUE: Imaging protocol: Real-time duplex ultrasound of the right extremity with 2-D pickens scale, color Doppler flow and spectral waveform analysis including responses to compression and other maneuvers (when performed) with image documentation. Limited exam was focused on the right lower extremity veins. COMPARISON: No relevant prior studies available. FINDINGS: Right deep veins: The common femoral, femoral, proximal profunda femoral and popliteal veins are patent without evidence of thrombus and demonstrate normal waveforms. Visualized deep calf veins are patent. Superficial veins: Saphenofemoral junction is patent without thrombus. No evidence of thrombophlebitis. Soft tissues: No gross sonographic abnormality. US/[place] [id number] IMPRESSION: 1. No sonographic evidence of deep venous thrombosis in the right lower extremity.
[2024-03-21 16:56] VITALS: BP 110/61; PULSE 61; RESP 16; O2SAT 97
--- NOTE | 2024-03-21 17:54 | ED_ITS ---
HPI - Extremity Problem General: Chief complaint: Extremity Problem,Nontraumatic Stated complaint: R leg problems Time Seen by Provider: 03/21/24 17:54 History of Present Illness: 83-year-old female comes in today with i njury to the right lower leg. Patient endorses a injury when she hit it against something outside about 3 to 4 days ago. Patient noticed some increased swelling to the lower leg and was concerned for a blood clot due to the history of DVT. Patient appears nontoxic. Patient reports no shortness of breath. Patient reports minimal pain. 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 Pets and animals: Yes Pets & animals: dog(s) Special kulwinder needs: No Agree to transfusion: Yes Physical Exam Const: COMMON NORMALS: alert HENMT: COMMON NORMALS: normocephalic HEAD & SCALP: normocephalic Neck/C-Spine: COMMON NORMALS: full ROM Resp: COMMON NORMALS: normal respiratory effort Cardio: COMMON NORMALS: regular rate RATE: regular rate Back/Pelvis: COMMON NORMALS: thoracic and lumbar spine normal to inspection Extremity: RIGHT LOWER EXTREMITY: Yes lower leg (Superficial abrasion with surrounding swelling) Right lower leg: Yes inspection, Yes palpation and Yes neurovascular exam Neuro: SENSORIUM/ORIENTATION: Yes alert Skin: COMMON NORMALS: turgor normal GENERAL SKIN EXAM: turgor normal Course Vital Signs: Vital signs: Vital Signs Temperature 98.0 F 03/21/24 15:14 Pulse Rate 61 03/21/24 16:56 Respiratory Rate 16 03/21/24 16:56 Blood Pressure 110/61 03/21/24 16:56 Pulse Oximetry 97 03/21/24 16:56 Oxygen Delivery Me thod Room Air 03/21/24 15:14 MDM - Extremity (Nontraumatic) Medical Decision Making Patient comes in for evaluation of injury and increased swelling to the right lower leg. Patient has a superficial abrasion to right lower leg with some mild swelling around it. Differential diagnosis includes but not limited to hematoma, DVT, cellulitis. No signs of cellulitis was noted at this time. Ultrasound was negative for DVT. Reviewed exam and recommendations for treatment for hematoma. Patient reported understanding and agreed to plan. Lab Data Radiology Impressions Venous Duplex 03/21/24 15:26 IMPRESSION: 1. No sonographic evidence of deep venous thrombosis in the right lower extremity. All radiology interpretation(s) finalized by discharge Discharge Plan Discharge Patient Disposition: Home Clinical Impression: Hematoma of right lower leg Condition: Stable Prescriptions: No Action isosorbide mononitrate 60 mg tablet extended release 24 hr 60 mg PO QAM diltiazem HCl 240 mg capsule,extended release 24 hr 240 mg PO QAM tramadol 50 mg tablet 50 mg PO BID PRN (Reason: Pain) meloxicam 7.5 mg tablet 7.5 mg PO DAILY loratadine [Allergy Relief (loratadine)] 10 mg tablet 10 mg PO DAILY atorvastatin 20 mg tablet 20 mg PO DAILY gabapentin 100 mg capsule 100 mg PO DAILY carisoprodol 350 mg tablet 350 mg PO DAILY polyethylene glycol 3350 [Miralax] 17 gram/dose powder 4 g PO DAILY azelastine 137 mcg (0.1 %) aerosol,spray 2 spray intranasal BID Rx Instructions: administer into each nostril Mucinex Fast-Max Cold-Nghtshft 01-64-088-400 mg/20 mL liquid, sequential 20 ml PO DAILY cholecalciferol (vitamin D3) 325 mcg (13,000 unit) capsule 325 mcg PO DAILY zinc acetate 25 mg (zinc) capsule 25 mg PO DAILY ascorbate calcium (vitamin C) 500 mg tablet 500 mg PO DAILY vitamin B complex [B Complex-Vitamin B12] Tablet 1 tab PO DAILY quercetin 500 mg capsule 500 mg PO DAILY Discharge Orders: Discharge ED (Routine); Ordered 03/21/24 Ordered By: Jossue Zacarias Referrals: Halley العلي MD [Primary Care Provider] - Discharge Diet: Usual diet Discharge Activity: Increase activity as tolerated Patient Instructions: Hematoma (ED) Activity Restrictions/Additional Instructions: No sign of DVT was noted in your leg today. You may use warm packs to the area to help dissolve the hematoma. Monitor the site for increasing redness or swelling. Follow-up with primary care or return to ER for new concerns. Coding Level of Care Code ED [employer]ting [employer] Operator for Edwin Paige
== END 2024-03-21 18:10 | disposition home or self-care (01) ==
PROVIDERS: Emergency Provider Nurse Practitioner Family; PCP Family Medicine
DX: S80.11XA Contusion of right lower leg, initial encounter (principal); I10 Essential (primary) hypertension; W22.8XXA Striking against or struck by other objects, initial encounter
CPT/HCPCS: 93971; 99024; 99284

== ENCOUNTER 2024-04-04 06:00 | Outpatient (RCR) | payer MEDICARE, OTHER, SELFPAY | END 2024-04-19 23:59 | disposition home or self-care (01) | LOC: SPT 06:00 | PROVIDERS: PCP Family Medicine; Visit Provider Physician Assistant | DX: Z98.890 Other specified postprocedural states (principal) | CPT/HCPCS: 99213 ==

== ENCOUNTER → 2024-04-04 11:17 | Outpatient (BNVA) | payer MEDICARE, OTHER, SELFPAY | PROVIDERS: PCP Family Medicine; Visit Provider Physician Assistant | DX: Z96.611 Presence of right artificial shoulder joint (principal); S49.91XA Unspecified injury of right shoulder and upper arm, initial encounter; X58.XXXA Exposure to other specified factors, initial encounter | CPT/HCPCS: 73030 ==

== ENCOUNTER → 2024-04-23 11:20 | Outpatient (BNVA) | payer MEDICARE, OTHER, SELFPAY | PROVIDERS: PCP Family Medicine; Visit Provider Anesthesiology Pain Medicine | DX: M51.17 Intervertebral disc disorders with radiculopathy, lumbosacral region; S49.91XA Unspecified injury of right shoulder and upper arm, initial encounter; Z96.619 Presence of unspecified artificial shoulder joint; Z98.1 Arthrodesis status; M47.816 Spondylosis without myelopathy or radiculopathy, lumbar region; X58.XXXA Exposure to other specified factors, initial encounter; Z96.611 Presence of right artificial shoulder joint | CPT/HCPCS: 99214 ==

== ENCOUNTER 2024-05-17 11:02 | Outpatient (CLI) | payer MEDICARE, OTHER, SELFPAY ==
--- NOTE | 2024-05-17 11:45 | MR_ITS ---
WS: [id number] MRI LUMBAR SPINE NONCONTRAST HISTORY: M54.16 - Radiculopathy, lumbar region, pain down both legs. COMPARISON: None available. TECHNIQUE: Sagittal and axial multisequence imaging is submitted. C5 retrolisthesis by 3 mm. C6-7 disc fusion. Disc spaces are narrowed throughout the thoracic spine. Mild ventriculomegaly. Prior posterior lumbar fusion at L4-5. Degenerative scoliosis lumbar spine. L5 anterolisthesis by 3 m m. Disc spaces are all narrowed and desiccated with vertebral body osteophytosis. Interbody spacer at L4 -5. No acute marrow edema in the lumbar spine. Conus terminates normally at L1-2 disc level. T12-L1: Diffuse annular disc bulging and osteophytic ridging. Mild central with moderate foraminal st enosis. Proximal RIGHT foraminal disc osteophyte. L1-L2: Diffuse annular disc bulging with facet joint arthritis and ligamentum flavum hypertrophy. Sha llow RIGHT paracentral disc protrusion. Moderate bilateral foraminal stenosis. L2-L3: Diffuse annular disc bulging asymmetric to the LEFT. Bilateral facet joint arthritis and ligam entum flavum hypertrophy. Thecal sac is been deformed by the scoliosis. Mild bilateral subarticular r ecess stenosis with moderate to severe foraminal stenosis. L3-L4: Diffuse annular disc bulging. Thecal sac is difficult to visualize due to the artifact from saenz rdware and also motion. Mild central with subarticular recess and at least moderate foraminal stenosi s. L4-L5: Diffuse annular disc bulging with osteophytic ridging and facet arthritis. Moderate bilateral foraminal stenosis, LEFT greater than RIGHT. L5-S1: Diffuse annular disc bulging with a central disc protrusion. LEFT hemilaminectomy defect. Disc encroachment into the subarticular recesses. Moderate to severe subarticular recess and foraminal st enosis. MR/MR lumbar spine wo con* [id number] IMPRESSION: 1. Quality this examination is compromised by motion and artifact from hardwar e. 2. Prior posterior lumbar fusion L4-5 with interbody spacer. 3. L4-5: Moderate bilateral foraminal stenosis, LEFT greater than RIGHT. 4. L5-S1: LEFT hemilaminectomy defect. Disc encroaches into the subarticular r ecesses and foramina. Moderate to severe bilateral subarticular recess and fora kortney stenosis. 5. L2-3: Mild bilateral subarticular recess stenosis with moderate to severe f oraminal stenosis. 6. L3-4: Mild central with subarticular recess and moderate foraminal stenosis . 7. L1-2: Moderate bilateral foraminal stenosis. 8. T12-L1 mild central with moderate foraminal stenosis. 9. Advanced scoliosis and degenerative disc disease throughout the lumbar spin e with multilevel disc and facet disease.
== END 2024-05-17 11:03 | disposition home or self-care (01) ==
PROVIDERS: PCP Family Medicine; Visit Provider Anesthesiology Pain Medicine
DX: M54.16 Radiculopathy, lumbar region (principal); M43.26 Fusion of spine, lumbar region; M99.63 Osseous and subluxation stenosis of intervertebral foramina of lumbar region; M99.64 Osseous and subluxation stenosis of intervertebral foramina of sacral region; M41.86 Other forms of scoliosis, lumbar region
CPT/HCPCS: 72148

== ENCOUNTER → 2024-05-30 10:09 | Outpatient (BNVA) | payer MEDICARE, OTHER, SELFPAY | PROVIDERS: PCP Family Medicine; Visit Provider Physician Assistant | DX: Z96.611 Presence of right artificial shoulder joint (principal) | CPT/HCPCS: 73030; 99213 ==

== ENCOUNTER → 2024-06-13 10:40 | Outpatient (BNVA) | payer MEDICARE, OTHER, SELFPAY | PROVIDERS: PCP Family Medicine; Visit Provider Surgery | DX: R10.9 Unspecified abdominal pain (principal); K31.84 Gastroparesis; K20.90 Esophagitis, unspecified without bleeding; R13.10 Dysphagia, unspecified | CPT/HCPCS: 99204 ==

== ENCOUNTER 2024-06-20 10:17 | Day surgery (SDC) | payer MEDICARE, OTHER, SELFPAY ==
[2024-06-20] VITALS (12 sets, daily range): BP systolic 124–159; BP diastolic 67–84; PULSE 72–89; RESP 14–18; TEMP 36.1–36.7; O2SAT 93–99; BMI 19.7
[2024-06-20] MEDS: sodium chloride 0.9% 1,000 ML 30 ML IV (10:42)
--- NOTE | 2024-06-20 11:39 | ANES.PREANE2 ---
Documented by User: Saba Hood CRNA 06/20/24 11:41 Pre-Anesthetic Assessment Height/Weight: Height 1.57 m Weight 48.988 kg Temp Pulse Resp BP Pulse Ox O2 Del Method 98.1 F 89 17 139/72 94 Room Air 06/20/24 10:34 06/20/24 10:34 06/20/24 10:34 06/20/24 10:34 06/20/24 10:34 06/20/24 10:34 Operation Date: 06/20/24 11:30 Proposed Procedures p EGD Dilation W/ Balloon 72600, K31.84, R13.10(Not Applicable) - Gabriel Montalvo, DO Familial anesthetic complications: none Was Beta Olivier taken within 24 hours: N/A Was Clonidine taken within 24 hours: N/A Last intake: Intake Last Liquid Date 06/19/24 Last Liquid Time 22:00 Last Solid Date 06/19/24 Last Solid Time 19:30 Social No alcohol and No tobacco Exam alert and oriented x 3 Airway Submandibular: within normal limits Cervical ROM: within normal limits Mallampati: Class II Dentition: false (uppers) History/ROS No significant history except as noted Pulmonary Exertional Dyspnea CV/HEM Arrythmia (SVT), Deep Vein Thrombosis (2022 after angiogram) and Hypertension None reported Hepatic None reported GI None reported Metabolic Hyperlipidemia Neuropsych Cerebrovascular Accident (no residual) Anesthetic Plan ASA status: 3 Anesthesia: Anesthesia Evaluation, General and MAC Medications/Allergies Home Medications Medication Instructions Recorded Confirmed Last Taken Type ascorbate calcium (vitamin C) 500 500 mg PO DAILY 11/23/23 06/18/24 06/17/24 History mg tablet carisoprodol 350 mg tablet (Soma) 175 mg PO DAILY 11/23/23 06/18/24 06/17/24 History cholecalciferol (vitamin D3) 325 325 mcg PO DAILY 11/23/23 06/18/24 01/21/24 History mcg (13,000 unit) capsule loratadine 10 mg tablet (Allergy 10 mg PO DAILY 11/23/23 06/18/24 06/18/24 History Relief (loratadine)) polyethylene glycol 3350 17 37 g PO DAILY 11/23/23 06/18/24 06/17/24 History gram/dose oral powder (Miralax) quercetin 500 mg capsule 500 mg PO DAILY 11/23/23 06/18/24 01/21/24 History tramadol 50 mg tablet 50 mg PO BID PRN Pain 11/23/23 06/18/24 01/19/24 History triprol-PE 10 mg-DM 20 mg-acetamin 20 ml PO DAILY PRN mucus 11/23/23 06/18/24 06/17/24 History 650 mg-GG 400mg/20mL(d) liquids,seq (Mucinex Fast-Max Cold-Nghtshft) vitamin B complex (B 1 tab PO DAILY 11/23/23 06/18/24 06/16/24 History Complex-Vitamin B12 tablet) zinc acetate 25 mg (zinc) capsule 25 mg PO DAILY 11/23/23 06/18/24 01/18/24 History azelastine 137 mcg (0.1 %) nasal 2 spray intranasal BID #30 mL 04/02/24 06/18/24 06/18/24 Rx spray furosemide 20 mg tablet 20 mg PO DAILY PRN Edema 04/02/24 06/18/24 Unknown History isosorbide mononitrate 60 mg 60 mg PO QAM #90 tabs 04/02/24 06/20/24 06/20/24 Rx tablet,extended release 24 hr atorvastatin 40 mg tablet 40 mg PO DAILY #30 tabs 05/15/24 06/18/24 06/17/24 Rx diltiazem HCl 240 mg capsule,24 240 mg PO QAM #30 caps 05/15/24 06/20/24 06/20/24 Rx hr,extended release meloxicam 7.5 mg tablet 7.5 mg PO DAILY #30 tabs 05/15/24 06/18/24 06/18/24 Rx amitriptyline 25 mg tablet 25 mg PO DAILY #30 tabs 06/06/24 06/18/24 06/17/24 Rx gabapentin 100 mg capsule 100 mg PO DAILY pain 06/18/24 06/18/24 06/17/24 History Allergies Allergy/AdvReac Type Severity Reaction Status Date / Time vancomycin Allergy Intermediate Rash Verified 06/18/24 12:28 Current Medications Generic Name Dose Route Start Last Admin Trade Name Freq PRN Reason Stop Dose Admin Sodium Chloride 1,000 mls @ 30 mls/hr 06/20/24 10:45 06/20/24 10:42 Sodium Chloride 0.9% IV 06/21/24 10:44 30 mls/hr .Q24H KVNG Administration PFSH Anesthesia Medical History (Updated 06/13/24 @ 11:13 by Gabriel Montalvo DO) History of obstruction of large intestine Hx of cataract Hypertension H/O deep venous thrombosis Doc-Danlos disease Surgical History (Updated 06/13/24 @ 11:13 by Gabriel Montalvo DO) Hx of sinus surgery History of back surgery laminectomy History of esophagogastroduodenoscopy (EGD) Hx of knee surgery right Hx of neck surgery Hx of carpal tunnel repair bilat Hx of colonoscopy 10+ years ago Hx laparoscopic cholecystectomy Family History Father Doc-Danlos syndrome Mother Alcohol dependence Social History Smoking and tobacco/nicotine status: former use of tobacco/nicotine (quit 30+ years ago) Alcohol intake: current Alcohol type: beer Substance/Drug Use: never Lives independently: Yes Household members: none Number of children: 4 Current occupational status: 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 Davidson about positive stress test and due for follow up in 2 weeks. Stuart cleared to proceed with EGD today. Medications/Allergies Home Medications Medication Instructions Recorded Confirmed Last Taken Type ascorbate calcium (vitamin C) 500 500 mg PO DAILY 11/23/23 06/18/24 06/17/24 History mg tablet carisoprodol 350 mg tablet (Soma) 175 mg PO DAILY 11/23/23 06/18/24 06/17/24 History cholecalciferol (vitamin D3) 325 325 mcg PO DAILY 11/23/23 06/18/24 01/21/24 History mcg (13,000 unit) capsule loratadine 10 mg tablet (Allergy 10 mg PO DAILY 11/23/23 06/18/24 06/18/24 History Relief (loratadine)) polyethylene glycol 3350 17 37 g PO DAILY 11/23/23 06/18/24 06/17/24 History gram/dose oral powder (Miralax) quercetin 500 mg capsule 500 mg PO DAILY 11/23/23 06/18/24 01/21/24 History tramadol 50 mg tablet 50 mg PO BID PRN Pain 11/23/23 06/18/24 01/19/24 History triprol-PE 10 mg-DM 20 mg-acetamin 20 ml PO DAILY PRN mucus 11/23/23 06/18/24 06/17/24 History 650 mg-GG 400mg/20mL(d) liquids,seq (Mucinex Fast-Max Cold-Nghtshft) vitamin B complex (B 1 tab PO DAILY 11/23/23 06/18/24 06/16/24 History Complex-Vitamin B12 tablet) zinc acetate 25 mg (zinc) capsule 25 mg PO DAILY 11/23/23 06/18/24 01/18/24 History azelastine 137 mcg (0.1 %) nasal 2 spray intranasal BID #30 mL 04/02/24 06/18/24 06/18/24 Rx spray furosemide 20 mg tablet 20 mg PO DAILY PRN Edema 04/02/24 06/18/24 Unknown History isosorbide mononitrate 60 mg 60 mg PO QAM #90 tabs 04/02/24 06/20/24 06/20/24 Rx tablet,extended release 24 hr atorvastatin 40 mg tablet 40 mg PO DAILY #30 tabs 05/15/24 06/18/24 06/17/24 Rx diltiazem HCl 240 mg capsule,24 240 mg PO QAM #30 caps 05/15/24 06/20/24 06/20/24 Rx hr,extended release meloxicam 7.5 mg tablet 7.5 mg PO DAILY #30 tabs 05/15/24 06/18/24 06/18/24 Rx amitriptyline 25 mg tablet 25 mg PO DAILY #30 tabs 06/06/24 06/18/24 06/17/24 Rx gabapentin 100 mg capsule 100 mg PO DAILY pain 06/18/24 06/18/24 06/17/24 History Allergies Allergy/AdvReac Type Severity Reaction Status Date / Time vancomycin Allergy Intermediate Rash Verified 06/18/24 12:28 [facility] Anesthesia Medical History (Updated 06/13/24 @ 11:13 by Gabriel Montalvo DO) History of obstruction of large intestine Hx of cataract Hypertension H/O deep venous thrombosis Doc-Danlos disease Surgical History (Updated 06/13/24 @ 11:13 by Gabriel Montalvo DO) Hx of sinus surgery History of back surgery laminectomy History of esophagogastroduodenoscopy (EGD) Hx of knee surgery right Hx of neck surgery Hx of carpal tunnel repair bilat Hx of colonoscopy 10+ years ago Hx laparoscopic cholecystectomy Family History Father Doc-Danlos syndrome Mother Alcohol dependence Social History Smoking and tobacco/nicotine status: former use of tobacco/nicotine (quit 30+ years ago) Alcohol intake: current Alcohol type: beer Substance/Drug Use: never Lives independently: Yes Household members: none Number of children: 4 Current occupational status: 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
--- NOTE | 2024-06-20 12:23 | W.PM.OPSUD ---
Surgery/Procedure H&P Update DATE OF PROCEDURE: June 20, 2024 DATE H&P PERFORMED: 06/13/24 H&P UPDATE INFORMATION: I have reviewed H&P completed within last 30 days, I have examined patient prior to procedure and No changes to prior documentation PLANNED PROCEDURE: Operation Date: 06/20/24 11:30 Proposed Procedures p EGD Dilation W/ Balloon 32447, K31.84, R13.10(Not Applicable) - Gabriel Montalvo DO
[2024-06-20] MEDS: EPINEPHrine 1 mg/mL INJ XX (13:01)
--- NOTE | 2024-06-20 14:25 | ANE.PACU2 ---
Inpatient post-anesthesia follow up: Airway intact: Yes Vital signs: Temperature 97.0 F Pulse Rate 72 Respiratory Rate 18 Blood Pressure 136/78 Pulse Oximetry 93 Oxygen Delivery Me thod Room Air Oxygen Flow Rate 2 Fraction of Inspir ed Oxygen Hydration adequate: Yes Nausea and vomiting: No Pain level: 1 Mental status: Baseline
== END 2024-06-20 14:27 | disposition home or self-care (01) ==
PROVIDERS: PCP Family Medicine; Visit Provider Surgery
DX: K31.84 Gastroparesis (principal); R13.10 Dysphagia, unspecified; K22.2 Esophageal obstruction; T18.2XXA Foreign body in stomach, initial encounter; Z86.718 Personal history of other venous thrombosis and embolism; I10 Essential (primary) hypertension; E78.5 Hyperlipidemia, unspecified; Z86.73 Personal history of transient ischemic attack (TIA), and cerebral infarction without residual deficits; Z87.891 Personal history of nicotine dependence
CPT/HCPCS: 43239; 43249; 88305; J0171; J0330; J2704; J3010; J3490; J7030

== ENCOUNTER → 2024-07-08 13:27 | Outpatient (BNVA) | payer MEDICARE, OTHER, SELFPAY | PROVIDERS: PCP Family Medicine; Visit Provider Podiatrist Foot & Ankle Surgery | DX: M79.671 Pain in right foot (principal); M79.672 Pain in left foot; M19.071 Primary osteoarthritis, right ankle and foot; M19.072 Primary osteoarthritis, left ankle and foot; M20.41 Other hammer toe(s) (acquired), right foot; M20.42 Other hammer toe(s) (acquired), left foot; M21.611 Bunion of right foot; M21.612 Bunion of left foot | CPT/HCPCS: 73630; 99204 ==

== ENCOUNTER → 2024-07-11 10:06 | Outpatient (BNVA) | payer MEDICARE, OTHER, SELFPAY | PROVIDERS: PCP Family Medicine; Visit Provider Surgery | DX: K31.84 Gastroparesis (principal); Z09 Encounter for follow-up examination after completed treatment for conditions other than malignant neoplasm; R13.10 Dysphagia, unspecified; T18.9XXA Foreign body of alimentary tract, part unspecified, initial encounter; W44.F1XA Bezoar entering into or through a natural orifice, initial encounter; K22.2 Esophageal obstruction; R07.9 Chest pain, unspecified; I10 Essential (primary) hypertension; Z87.891 Personal history of nicotine dependence | CPT/HCPCS: 93005; 99204; 99214 ==

== ENCOUNTER → 2024-07-30 14:26 | Outpatient (BNVA) | payer MEDICARE, OTHER, SELFPAY | PROVIDERS: PCP Family Medicine; Visit Provider Student in an Organized Health Care Education/Training Program | DX: M25.511 Pain in right shoulder (principal); Z96.611 Presence of right artificial shoulder joint | CPT/HCPCS: 73030; 99213 ==

== ENCOUNTER 2024-08-12 19:23 | Emergency (ER) | payer MEDICARE, OTHER, SELFPAY ==
[2024-08-12] VITALS (8 sets, daily range): BP systolic 126–150; BP diastolic 62–85; PULSE 75–93; RESP 12–23; TEMP 36.7; O2SAT 91–97; BMI 19.5
--- NOTE | 2024-08-12 19:26 | ECG_ITS ---
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 Measurements Intervals [place] Rate: 76 P: 58 [place]: 197 QRS: 35 QRSD: 84 T: 54 QT: 396 QTc: 447 Interpretive Statements SINUS RHYTHM POSSIBLE LEFT ATRIAL ENLARGEMENT [-0.1mV P-WAVE IN V1/V2] SEPTAL MYOCARDIAL INFARCTION , OF INDETERMINATE AGE [40+ ms Q WAVE IN V1/V2] Compared to ECG 07/11/2024 12:48:14 Myocardial infarct finding now present T-wave abnormality no longer present Electronically Signed On 08-12-2024 23:16:56 CDT by Zac Torres M.D. [id number] f
--- NOTE | 2024-08-12 19:26 | ECG_ITS ---
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 Measurements Intervals [place] Rate: 76 P: 58 [place]: 197 QRS: 35 QRSD: 84 T: 54 QT: 396 QTc: 447 Interpretive Statements SINUS RHYTHM POSSIBLE LEFT ATRIAL ENLARGEMENT [-0.1mV P-WAVE IN V1/V2] Non Specific ST-T changes SEPTAL MYOCARDIAL INFARCTION , OF INDETERMINATE AGE [40+ ms Q WAVE IN V1/V2] Compared to ECG 07/11/2024 12:48:14 Myocardial infarct finding now present Electronically Signed On 08-12-2024 23:18:19 CDT by Zac Torres M.D. [id number] f
--- NOTE | 2024-08-12 19:37 | XRR_ITS ---
PROCEDURE INFORMATION: Exam: XR Chest Exam date and time: 08/12/2024 7:41 PM Age: 83 years old Clinical indication: Pain; Chest pressure; Prior surgery; Surgery date: 6+ months; Surgery type: Loop recorder; Additional info: Chest pain TECHNIQUE: Imaging protocol: Radiologic exam of the chest. Views: 1 view. COMPARISON: CR XR shoulder RT min 2V* [id number] 07/30/2024 2:38 PM FINDINGS: Lungs: Emphysematous changes. Bibasilar atelectasis versus minimal infiltrate. Pleural spaces: Unremarkable. No pleural effusion. No pneumothorax. Heart/Mediastinum: Cardiomegaly. Bones/joints: Unremarkable. XR/XR chest 1V portable [id number] IMPRESSION: 1. Cardiomegaly. 2. Emphysematous changes. 3. Bibasilar atelectasis versus minimal infiltrate.
--- NOTE | 2024-08-12 19:54 | ED_ITS ---
HPI - Chest Pain 2 General: Chief Complaint: Chest Pain Stated Complaint: CHEST DISCOMFORT Time Seen by Provider: 08/12/24 19:37 History of Present Illness: Patient presents to the ER by EMS from home with complaints of A-fib with tachycardia and lots of diaphoresis. Patient did not say she had chest pain however she has a chest tightness. This all resolved by the time the EMS got there this lasted about 30 minutes. Patient is pain-free and in a controlled rhythm. Related Data Home Medications Medication Instructions Recorded Confirmed ascorbate calcium (vitamin C) 500 500 mg PO DAILY 11/23/23 07/30/24 mg tablet cholecalciferol (vitamin D3) 325 325 mcg PO DAILY 11/23/23 07/30/24 mcg (13,000 unit) capsule loratadine 10 mg tablet (Allergy 10 mg PO DAILY 11/23/23 07/30/24 Relief (loratadine)) polyethylene glycol 3350 17 37 g PO DAILY 11/23/23 07/30/24 gram/dose oral powder (Miralax) triprol-PE 10 mg-DM 20 mg-acetamin 20 ml PO DAILY PRN mucus 11/23/23 07/30/24 650 mg-GG 400mg/20mL(d) liquids,seq (Mucinex Fast-Max Cold-Nghtshft) vitamin B complex (B 1 tab PO DAILY 11/23/23 07/30/24 Complex-Vitamin B12 tablet) zinc acetate 25 mg (zinc) capsule 25 mg PO DAILY 11/23/23 07/30/24 furosemide 20 mg tablet 20 mg PO DAILY PRN Edema 04/02/24 07/30/24 Previous Rx's Medication Instructions Recorded azelastine 137 mcg (0.1 %) nasal 2 spray intranasal BID #30 mL 04/02/24 spray atorvastatin 40 mg tablet 40 mg PO DAILY #30 tabs 05/15/24 meloxicam 7.5 mg tablet 7.5 mg PO DAILY #30 tabs 05/15/24 amitriptyline 25 mg tablet 25 mg PO DAILY #30 tabs 06/06/24 gabapentin 100 mg capsule 100 mg PO BID pain #60 caps 06/25/24 isosorbide mononitrate 60 mg 60 mg PO QAM #90 tabs 06/25/24 tablet,extended release 24 hr bilateral AFO #1 ea 07/08/24 diclofenac sodium 1 % topical gel 4 g topical QID #100 grams 07/08/24 (Voltaren Arthritis Pain) diltiazem HCl 360 mg capsule,24 360 mg PO QAM #90 caps 07/11/24 hr,extended release Allergies Allergy/AdvReac Type Severity Reaction Status Date / Time vancomycin Allergy Intermediate Rash Verified 08/12/24 19:28 Review of Systems 2 General: Reports: 10 or more systems reviewed and unremarkable except in HPI and below PFSH ED 2 PFSH: Medical History History of obstruction of large intestine Hx of cataract Hypertension H/O deep venous thrombosis Doc-Danlos disease Surgical History Hx of sinus surgery History of back surgery laminectomy History of esophagogastroduodenoscopy (EGD) Hx of knee surgery right Hx of neck surgery Hx of carpal tunnel repair bilat Hx of colonoscopy 10+ years ago Hx laparoscopic cholecystectomy Family History Father Doc-Danlos syndrome Mother Alcohol dependence Social History Smoking and tobacco/nicotine status: former use of tobacco/nicotine Alcohol intake: current Alcohol type: beer Substance/Drug Use: never Lives independently: Yes Household members: none Number of children: 4 Current occupational status: 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 Pets and animals: Yes Pets & animals: dog(s) Special kulwinder needs: No Agree to transfusion: Yes Physical Exam 2 Const: COMMON NORMALS: no acute distress, average body habitus, patient oriented x3, no limitations, healthy appearing, alert and well nourished HENMT: COMMON NORMALS: normocephalic, atraumatic, hearing grossly normal bilaterally, external ears normal, Normal external nose present and moist oral mucous membranes HEAD & SCALP: normocephalic and atraumatic NOSE: Normal external nose present EXTERNAL EAR: Yes external ears normal Neck/C-Spine: COMMON NORMALS: full ROM, no lymphadenopathy, no meningeal signs, no JVD and Thyroid normal THYROID: Thyroid normal Chest: COMMONS NORMALS: normal inspection of the chest and normal palpation of entire chest wall Resp: COMMON NORMALS: normal respiratory effort, No retractions, No use of accessory muscles and clear to auscultation bilaterally AUSCULTATION: clear to auscultation bilaterally Cardio: COMMON NORMALS: no JVD, regular rate, S1 normal heart sound present, S2 normal heart sound present, No gallops present (Cardio), No clicks present (Cardio) and No murmurs present (Cardio) (3/6 systolic ejection murmur); negative for regular rhythm (Irregular rhythm) RATE: regular rate RHYTHM: abnormal rhythm (Irregular rhythm) HEART SOUNDS: S1 normal heart sound present and S2 normal heart sound present GI: COMMON NORMALS: Normal to inspection, nondistended, normoactive bowel sounds present, Soft to palpation, non-tender, No hepatosplenomegaly present and no masses PALPATION: Yes Soft to palpation and Yes No hepatosplenomegaly present Neuro: COMMON NORMALS: patient oriented x3 SENSORIUM/ORIENTATION: Yes alert MENINGEAL SIGNS: Yes no meningeal signs Course 2 Vital Signs: Vital signs: Vital Signs Temperature 98.0 F 08/12/24 19:38 Pulse Rate 92 08/12/24 22:00 Respiratory Rate 21 H 08/12/24 22:00 Blood Pressure 126/62 08/12/24 22:00 Pulse Oximetry 94 08/12/24 22:00 Oxygen Delivery Me thod Room Air 08/12/24 22:00 MDM - Chest Pain Medical Decision Making Patient presents to the ER with complaints of right-sided tachycardia and diaphoresis, patient was worked up in standard chest pain fashion, results were essentially benign. Patient be discharged home. Medical Records I reviewed the patient's medical records. Lab Data I reviewed the patient's lab results. 08/12/24 20:04 08/12/24 20:04 Radiology Impressions Chest X-Ray 08/12/24 19:37 IMPRESSION: 1. Cardiomegaly. 2. Emphysematous changes. 3. Bibasilar atelectasis versus minimal infiltrate. Laboratory Results WBC 7.44 10^3/uL (3.29-11.43) 08/12/24 20:04 RBC 3.58 10^6/uL (3.85-5.65) L 08/12/24 20:04 Hgb 11.10 g/dL (11.27-16.99) L 08/12/24 20:04 Hct 35.0 % (36-47) L 08/12/24 20:04 MCV 97.8 fl (85-98) 08/12/24 20:04 MCH 31.0 pg (27-33) 08/12/24 20:04 MCHC 31.7 g/dL (30-55) 08/12/24 20:04 RDW 13.6 % (12.1-15.1) 08/12/24 20:04 Plt Count 234 10^3/cmm (157-399) 08/12/24 20:04 MPV 9.3 fL (7.4-10.4) 08/12/24 20:04 Neut % (Auto) 70.0 % 08/12/24 20:04 Lymph % (Auto) 17.9 % 08/12/24 20:04 [place] % (Auto) 8.3 % 08/12/24 20:04 Eos % (Auto) 3.2 % 08/12/24 20:04 Baso % (Auto) 0.5 % 08/12/24 20:04 Neut # (Auto) 5.20 10^3/uL (1.8-7.7) 08/12/24 20:04 Lymph # (Auto) 1.3 10^3/uL (0.8-4.8) 08/12/24 20:04 [place] # (Auto) 0.6 10^3/uL (0.2-0.9) 08/12/24 20:04 Eos # (Auto) 0.2 10^3/uL (0.0-0.8) 08/12/24 20:04 Baso # (Auto) 0.0 10^3/uL (0.0-0.1) 08/12/24 20:04 Nucleated RBC % (auto) 0 % 08/12/24 20:04 Nucleated RBCs # 0.0 /100WBC 08/12/24 20:04 PT 12.70 SECONDS (12.1-14.9) 08/12/24 20:04 INR 0.93 (0.8-1.2) 08/12/24 20:04 Sodium 138 mmol/L (136-145) 08/12/24 20:04 Potassium 3.6 mmol/L (3.5-5.1) 08/12/24 20:04 Chloride 100 mmol/L (98-107) 08/12/24 20:04 Carbon Dioxide 24 mmol/L (22-29) 08/12/24 20:04 Anion Gap 17.6 (5-19) 08/12/24 20:04 BUN 21 mg/dL (8-23) 08/12/24 20:04 Creatinine 1.2 mg/dL (0.5-0.9) H 08/12/24 20:04 GFR Calculation Not Reportable 08/12/24 20:04 Glucose 71 mg/dL (65-115) 08/12/24 20:04 Calculated Osmolality 287 mOsm/kg (285-295) 08/12/24 20:04 Calcium 8.8 mg/dL (8.5-10.5) 08/12/24 20:04 Magnesium 2.3 mg/dL (1.7-2.3) 08/12/24 20:04 Total Bilirubin 0.3 mg/dL (0.15-1.2) 08/12/24 20:04 AST 19 U/L (0-32) 08/12/24 20:04 ALT 11 U/L (0-33) 08/12/24 20:04 Alkaline Phosphatase 129 U/L (35-105) H 08/12/24 20:04 Troponin T Baseline 21 ng/L (0-10) H 08/12/24 20:04 Troponin T 120 Minute 19.70 ng/L (0-10) H 08/12/24 22:16 Delta Troponin T -1.30 ABS# (0-10) L 08/12/24 22:16 NT-Pro-B Natriuret Pep 637 pg/mL (0-450) H 08/12/24 20:04 Total Protein 6.6 g/dL (6.6-8.7) 08/12/24 20:04 Albumin 4.4 g/dL (3.5-5.2) 08/12/24 20:04 Globulin 2.2 g/dL (1.3-4.6) 08/12/24 20:04 All radiology interpretation(s) finalized by discharge Discharge Plan Discharge Patient Disposition: Home Clinical Impression: Atypical chest pain Atrial fibrillation Qualifiers: Atrial fibrillation type: unspecified Qualified Code(s): I48.91 - Unspecified atrial fibrillation Condition: Stable Prescriptions: No Action azelastine 137 mcg (0.1 %) aerosol,spray 2 spray intranasal BID Qty: 30 2RF Rx Instructions: administer into each nostril furosemide 20 mg tablet 20 mg PO DAILY PRN (Reason: Edema) diclofenac sodium [Voltaren Arthritis Pain] 1 % gel 4 g topical QID Qty: 100 0RF Rx Instructions: apply to single knee, ankle, foot; for foot includes sole/toes/top of foot (DME) bilateral AFO See Rx Instructions .Route .MEDSUPPLY Qty: 1 0RF Rx Instructions: As directed to the shoe bunny loratadine [Allergy Relief (loratadine)] 10 mg tablet 10 mg PO DAILY polyethylene glycol 3350 [Miralax] 17 gram/dose powder 37 g PO DAILY Mucinex Fast-Max Cold-Nghtshft 85-22-973-400 mg/20 mL liquid, sequential 20 ml PO DAILY PRN (Reason: mucus) cholecalciferol (vitamin D3) 325 mcg (13,000 unit) capsule 325 mcg PO DAILY zinc acetate 25 mg (zinc) capsule 25 mg PO DAILY ascorbate calcium (vitamin C) 500 mg tablet 500 mg PO DAILY vitamin B complex [B Complex-Vitamin B12] Tablet 1 tab PO DAILY amitriptyline 25 mg tablet 25 mg PO DAILY Qty: 30 3RF Rx Instructions: Take at bedtime diltiazem HCl 360 mg capsule,extended release 24 hr 360 mg PO QAM Qty: 90 3RF meloxicam 7.5 mg tablet 7.5 mg PO DAILY Qty: 30 2RF Hold Instructions: Resume on 06/22/24. atorvastatin 40 mg tablet 40 mg PO DAILY Qty: 30 2RF isosorbide mononitrate 60 mg tablet extended release 24 hr 60 mg PO QAM Qty: 90 0RF gabapentin 100 mg capsule 100 mg PO BID Qty: 60 0RF Discharge Orders: Discharge ED (Routine); Ordered 08/12/24 Ordered By: Omer Thomas Referrals: Halley العلي MD [Primary Care Provider] - 1 week Patient Instructions: Atrial Fibrillation, Chest Pain (ED) Activity Restrictions/Additional Instructions: Evaluation ER did not show any abnormality that coincide with your symptomatology. She may have experienced changes atrial fibrillation that comes and goes with unusual sweating this time. If this happens again or your symptoms worsen please feel free to return to the ER otherwise follow-up with your family practitioner the next 7 days for further evaluation and treatment. Coding Level of Care Code ED Tax Associate for Edwin Paige
[2024-08-12 20:13] LABS: Basophils % 0.5 %; Eosinophils # 0.2 10^3/uL (0.0-0.8); Eosinophils % 3.2 %; Lymphocytes # 1.3 10^3/uL (0.8-4.8); Lymphocytes % 17.9 %; Mean Corpuscular HGB Conc 31.7 g/dL (30-55); Mean Corpuscular Volume 97.8 fl (85-98); Mean Platelet Volume 9.3 fL (7.4-10.4); Monocytes # 0.6 10^3/uL (0.2-0.9); Monocytes % 8.3 %; Nucleated Red Blood Cells % 0 %; Platelet Count 234 10^3/cmm (157-399); Red Blood Count 3.58 10^6/uL (3.85-5.65); Red Cell Distribution Width 13.6 % (12.1-15.1); White Blood Count 7.44 10^3/uL (3.29-11.43)
[2024-08-12 20:29] LABS: INR 0.93 (0.8-1.2)
[2024-08-12 20:37] LABS: Troponin(5th) Baseline 21 ng/L (0-10)
[2024-08-12 20:46] LABS: Alanine Aminotransferase 11 U/L (0-33); Albumin Level 4.4 g/dL (3.5-5.2); Alkaline Phosphatase 129 U/L (35-105); Aspartate Amino Transferase 19 U/L (0-32); Blood Urea Nitrogen 21 mg/dL (8-23); Calcium 8.8 mg/dL (8.5-10.5); Carbon Dioxide 24 mmol/L (22-29); Chloride 100 mmol/L (98-107); Globulin 2.2 g/dL (1.3-4.6); Glucose 71 mg/dL (65-115); Magnesium 2.3 mg/dL (1.7-2.3); NT Pro B Type Natriuretic Pept 637 pg/mL (0-450); Osmolality Calculated 287 mOsm/kg (285-295); Sodium 138 mmol/L (136-145); Total Bilirubin 0.3 mg/dL (0.15-1.2); Total Protein 6.6 g/dL (6.6-8.7)
[2024-08-12 20:47] LABS: Anion Gap 17.6 (5-19); Potassium 3.6 mmol/L (3.5-5.1)
--- NOTE | 2024-08-12 21:37 | ECG_ITS ---
[facility] Test Date: 2024-08-12 Pat Name: Aga Lennon Department: Room: Gender: Female Relocation Associate: : 1940 Requested By: Omer Thomas Order Number: [id number] Keanu MD: Zac Torres M.D. Measurements Intervals [place] Rate: 78 P: 58 [place]: 189 QRS: 48 QRSD: 89 T: 61 QT: 431 QTc: 493 Interpretive Statements SINUS RHYTHM POSSIBLE LEFT ATRIAL ENLARGEMENT [-0.1mV P-WAVE IN V1/V2] SEPTAL MYOCARDIAL INFARCTION , OF INDETERMINATE AGE [40+ ms Q WAVE IN V1/V2] Compared to ECG 07/11/2024 12:48:14 Myocardial infarct finding now present T-wave abnormality no longer present Electronically Signed On 08-12-2024 23:30:26 CDT by Zac Torres M.D. [id number]
== END 2024-08-12 23:31 | disposition home or self-care (01) ==
PROVIDERS: Emergency Provider Emergency Medicine; PCP Family Medicine
DX: R07.89 Other chest pain (principal); I48.91 Unspecified atrial fibrillation; Z87.891 Personal history of nicotine dependence; I10 Essential (primary) hypertension
CPT/HCPCS: 36415; 71045; 80053; 83735; 83880; 84484; 85025; 85610; 93005; 99285

== ENCOUNTER 2024-08-15 13:30 | Outpatient (CLI) | payer MEDICARE, OTHER, SELFPAY ==
--- NOTE | 2024-08-15 13:30 | USCV_ITS ---
Citlalli Aga Age: 83 Gender: F : 1940 Exam Date: 08/15/2024 13:45 Ordering Phys: Kirill Davidson M.D ([email or web address]) Technologist: Exam Location: [facility] [place] Indication: murmur BP: 107 / 71 HR: 78 Rhythm: Sinus Technical Quality: Adequate MEASUREMENTS (Male / Female) Normal Values 2D ECHO LV Diastolic Diameter PLAX 2.8 cm 4.2 - 5.9 / 3.9 - 5.3 cm IVS Diastolic Thickness 1.6 cm 0.6 - 1.0 / 0.6 - 0.9 cm IVS Systolic Thickness 1.5 cm LVPW Diastolic Thickness 1.1 cm 0.6 - 1.0 / 0.6 - 0.9 cm LVPW Systolic Thickness 1.5 cm LVOT Diameter 2.0 cm LV Ejection Fraction 2D Teich 76.1 % LV Ejection Fraction MOD 4C 81.0 % LV Ejection Fraction MOD 2C 61.4 % LV Ejection Fraction 2C AL 61.3 % LA Diameter 3.1 cm RA Systolic Volume 4C AL 28.1 ml RA Systolic Volume 4C MOD 27.3 ml Aorta at Sinotubular Diameter 3.1 cm IVC Diameter 1.2 cm DOPPLER AV Peak Velocity 229.0 cm/s MV Peak Velocity 124.0 cm/s MV Area PHT 4.0 cm squared Mitral E to A Ratio 0.5 TV Peak Velocity 193.5 cm/s TR Peak Velocity 249.0 cm/s TR Peak Gradient 24.8 mmHg TV Peak E Velocity 109.0 cm/s Right Atrial Pressure 3.0 mmHg Pulmonary Artery Systolic Pressu 27.8 mmHg PV Peak Velocity 162.0 cm/s FINDINGS Left Ventricle Normal left ventricular cavity size. Normal left ventricular systolic function. Left ventricular ejection fraction is estimated at 60 %. Grade I/IV diastolic dysfunction (abnormal relaxation filling pattern), normal to mildly elevated filling pressures. Right Ventricle The right ventricle is normal in size and function. Right Atrium The right atrium is normal in size. Left Atrium The left atrium is normal in size. Mitral Valve Mildly thickened mitral valve. Mitral annular calcification. No mitral valve stenosis. Trace mitral valve regurgitation. Aortic Valve Moderate aortic valve calcification. No aortic valve stenosis. Trace aortic valve regurgitation. Tricuspid Valve Structurally normal tricuspid valve without significant stenosis or regurgitation. Pulmonary artery systolic pressure is normal. Pulmonic Valve Structurally normal pulmonic valve without significant stenosis. There is no pulmonic regurgitation. Pericardium Normal pericardium without effusion. Aorta Normal ascending aorta dimension. IVC The inferior vena cava appears normal. CONCLUSIONS Normal left ventricular cavity size. Normal left ventricular systolic function. Left ventricular ejection fraction is estimated at 60 %. Grade I/IV diastolic dysfunction (abnormal relaxation filling pattern), normal to mildly elevated filling pressures. No significant chamber abnormalities. There is no pericardial effusion. Pulmonary artery systolic pressure is within normal limits. Right atrial pressure is around 5 mm of mercury. Myron Barnett MD (Electronically Signed) Final Date: 24 August 2024 11:56 S
== END 2024-08-15 13:32 | disposition home or self-care (01) ==
PROVIDERS: PCP Family Medicine; Visit Provider Internal Medicine
DX: I50.30 Unspecified diastolic (congestive) heart failure (principal); I34.81 Nonrheumatic mitral (valve) annulus calcification; I35.2 Nonrheumatic aortic (valve) stenosis with insufficiency
CPT/HCPCS: 93306

== ENCOUNTER → 2024-08-27 10:09 | Outpatient (BNVA) | payer MEDICARE, OTHER, SELFPAY | PROVIDERS: PCP Family Medicine; Visit Provider Nurse Practitioner Family | DX: R07.9 Chest pain, unspecified (principal); Z87.891 Personal history of nicotine dependence | CPT/HCPCS: 99213 ==

== ENCOUNTER → 2024-10-07 13:09 | Outpatient (BNVA) | payer MEDICARE, OTHER, SELFPAY | PROVIDERS: PCP Family Medicine; Visit Provider Podiatrist Foot & Ankle Surgery | DX: M20.41 Other hammer toe(s) (acquired), right foot; M20.42 Other hammer toe(s) (acquired), left foot; M19.072 Primary osteoarthritis, left ankle and foot; M19.071 Primary osteoarthritis, right ankle and foot; M21.611 Bunion of right foot; M21.612 Bunion of left foot | CPT/HCPCS: 99213 ==

== ENCOUNTER → 2024-10-28 10:38 | Outpatient (BNVA) | payer MEDICARE, OTHER, SELFPAY | PROVIDERS: PCP Family Medicine; Visit Provider Surgery | DX: R13.10 Dysphagia, unspecified (principal); K31.84 Gastroparesis; K22.2 Esophageal obstruction; T18.2XXA Foreign body in stomach, initial encounter; W44.F1XA Bezoar entering into or through a natural orifice, initial encounter | CPT/HCPCS: 99214 ==

== ENCOUNTER → 2024-12-17 13:10 | Outpatient (BNVA) | payer MEDICARE, OTHER, SELFPAY | PROVIDERS: PCP Family Medicine; Visit Provider Podiatrist Foot & Ankle Surgery | DX: M79.672 Pain in left foot (principal); M19.071 Primary osteoarthritis, right ankle and foot; M19.072 Primary osteoarthritis, left ankle and foot; R60.9 Edema, unspecified; M20.41 Other hammer toe(s) (acquired), right foot; M20.42 Other hammer toe(s) (acquired), left foot; M21.611 Bunion of right foot; M21.612 Bunion of left foot | CPT/HCPCS: 20605; 73630; J1100; J3301 ==

== ENCOUNTER → 2025-01-22 12:48 | Outpatient (BNVA) | payer MEDICARE, OTHER, SELFPAY | PROVIDERS: PCP Family Medicine; Visit Provider Student in an Organized Health Care Education/Training Program | DX: Z96.611 Presence of right artificial shoulder joint (principal) | CPT/HCPCS: 73030; 99213 ==

== ENCOUNTER → 2025-03-14 11:18 | Outpatient (BNVA) | payer MEDICARE, OTHER, SELFPAY | PROVIDERS: PCP Family Medicine; Visit Provider Nurse Practitioner Family | DX: I48.91 Unspecified atrial fibrillation (principal); Z79.82 Long term (current) use of aspirin; I10 Essential (primary) hypertension; R01.1 Cardiac murmur, unspecified; Q79.60 Ehlers-Danlos syndrome, unspecified; R61 Generalized hyperhidrosis; R60.9 Edema, unspecified; Z86.718 Personal history of other venous thrombosis and embolism; Z87.891 Personal history of nicotine dependence | CPT/HCPCS: 99214 ==

== ENCOUNTER 2025-03-18 13:52 | Outpatient (CLI) | payer MEDICARE, OTHER, SELFPAY ==
--- NOTE | 2025-03-18 13:56 | XRR_ITS ---
PROCEDURE INFORMATION: Exam: XR Lumbosacral Spine Exam date and time: 03/18/2025 2:04 PM Age: 84 years old Clinical indication: Low back pain; Additional info: Lumbar radiculopathy/s/p spinal fusion, PT having CT too TECHNIQUE: Imaging protocol: Radiologic exam of the lumbosacral spine. Views: 6 or more views. Including flexion and extension views. COMPARISON: MR lumbar spine wo con* [id number] 05/17/2024 11:31 AM FINDINGS: Bones/joints: Levoscoliosis at the thoracolumbar junction. Posterior fusion L4-L5 level. Intervertebral disc narrowing seen at L1-L2, L2-L3 levels. No fracture or facet subluxation. No significant spondylolisthesis Soft tissues: Unremarkable. Vasculature: Calcified atherosclerotic changes are seen in the abdominal aorta. XR/XR lumbar spine 6V w f/e [id number] IMPRESSION: Multilevel spondylotic changes are seen as described.
--- NOTE | 2025-03-18 13:56 | CTR_ITS ---
PROCEDURE INFORMATION: Exam: CT Lumbar Spine Without Contrast Exam date and time: 03/18/2025 2:42 PM Age: 84 years old Clinical indication: Low back pain; Prior surgery; Surgery date: 6+ months; Surgery type: Back x4 hyst, appy, gb; Leg numbness with spasms x 1 year when lying down; Additional info: Lumbar radiculopathy/s/p lumbar spinal fusion, PT having xray too TECHNIQUE: Imaging protocol: Computed tomography of the lumbar spine without contrast. Radiation optimization: All CT scans at this facility use at least one of these dose optimization techniques: automated exposure control; mA and/or kV adjustment per patient size (includes targeted exams where dose is matched to clinical indication); or iterative reconstruction. COMPARISON: MR lumbar spine wo con* [id number] 05/17/2024 11:31 AM RADIATION DOSE METRICS: Total DLP (mGy-cm): 262.73 FINDINGS: Bones/joints: The bones are osteopenic. The patient is post L4-L5 discectomy with an interbody spacer device in place and posterior fixation via pedicle screws at L4 and L5 with ipsilateral screws joined by short vertical bars. There is an 18 degree levoconvex curvature of the upper lumbar spine at L1. A 16 degree dextroconvex curvature of the lumbar spine centered at L4 is noted. There appears to be some fullness in the right sacroiliac joint with vacuum phenomenon on the left. Spondylosis is noted with disc osteophyte, uncovertebral spurring significant neural Soft tissues: Unremarkable. 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 Query sacroiliitis, right greater than left, consider MRI with and without contrast.
== END 2025-03-18 13:53 | disposition home or self-care (01) ==
PROVIDERS: PCP Family Medicine; Visit Provider Neurological Surgery
DX: M54.16 Radiculopathy, lumbar region (principal); Z98.1 Arthrodesis status; M41.86 Other forms of scoliosis, lumbar region; M51.369 Other intervertebral disc degeneration, lumbar region without mention of lumbar back pain or lower extremity pain; I70.0 Atherosclerosis of aorta; M47.896 Other spondylosis, lumbar region; R93.7 Abnormal findings on diagnostic imaging of other parts of musculoskeletal system; M43.8X6 Other specified deforming dorsopathies, lumbar region; M25.78 Osteophyte, vertebrae
CPT/HCPCS: 72114; 72131

== ENCOUNTER 2025-04-01 09:58 | Outpatient (CLI) | payer MEDICARE, OTHER, SELFPAY ==
--- NOTE | 2025-04-01 10:00 | USCV_ITS ---
Citlalli Aga Age: 84 Gender: F : 1940 Exam Date: 04/01/2025 10:41 Ordering Phys: Yolis Herrera Technologist: DOMENIC Exam Location: [facility] [place] Indication: Murmur BP: 108 / 60 HR: 68 Rhythm: Sinus Technical Quality: Adequate MEASUREMENTS (Male / Female) Normal Values 2D ECHO LV Diastolic Diameter PLAX 4.4 cm 4.2 - 5.9 / 3.9 - 5.3 cm IVS Diastolic Thickness 0.9 cm 0.6 - 1.0 / 0.6 - 0.9 cm IVS Systolic Thickness 1.4 cm LVPW Diastolic Thickness 1.3 cm 0.6 - 1.0 / 0.6 - 0.9 cm LVPW Systolic Thickness 1.3 cm LVOT Diameter 1.9 cm LV Ejection Fraction 2D Teich 60.0 % LV Ejection Fraction MOD 4C 64.2 % LV Ejection Fraction MOD 2C 47.6 % LV Ejection Fraction 2C AL 50.0 % LA Diameter 3.5 cm RA Systolic Volume 4C AL 24.4 ml RA Systolic Volume 4C MOD 22.8 ml LA Sys Volume AL 39.2 cm cubed LA Sys Volume Index AL 22.5 cm cubed/m squared Aorta at Sinotubular Diameter 2.6 cm IVC Diameter 1.5 cm M-MODE LA Ao Ratio MM 1.3 AV Cusp Separation MM 1.2 cm DOPPLER AV Peak Velocity 179.0 cm/s LVOT Peak Velocity 162.0 cm/s AV Area Cont Eq vti 2.8 cm squared AV Area Cont Eq pk 2.7 cm squared MV Peak Velocity 114.0 cm/s MV Area PHT 3.8 cm squared Mitral E to A Ratio 0.6 TV Peak Velocity 138.5 cm/s TR Peak Velocity 192.0 cm/s TR Peak Gradient 14.7 mmHg TV Peak E Velocity 53.0 cm/s PV Peak Velocity 82.0 cm/s FINDINGS Left Ventricle Left ventricle is normal in size. LV systolic function is normal with EF of 60-65%. No regional wall motion abnormalities are seen. Grade 1 diastolic dysfunction. Right Ventricle Normal in size and function Right Atrium Normal in size Left Atrium Dilated Mitral Valve Mild mitral annular calcification. Mild mitral regurgitation Aortic Valve Structurally normal aortic valve. No significant stenosis or regurgitation Tricuspid Valve Insufficient TR jet to calculate RVSP Pulmonic Valve Not well visualized Pericardium Normal Aorta Normal in size IVC Appears to be normal CONCLUSIONS LV systolic function is normal with EF of 60-65%. Grade 1 diastolic dysfunction. Left atrial dilation. Mild mitral regurgitation. Kirill Davidson MD (Electronically Signed) Final Date: 06 Apr 2025 14:54 S
== END 2025-04-01 09:59 | disposition home or self-care (01) ==
PROVIDERS: PCP Family Medicine; Visit Provider Nurse Practitioner Family
DX: R07.9 Chest pain, unspecified (principal); R01.1 Cardiac murmur, unspecified; R93.1 Abnormal findings on diagnostic imaging of heart and coronary circulation; I51.7 Cardiomegaly; I34.0 Nonrheumatic mitral (valve) insufficiency; I34.81 Nonrheumatic mitral (valve) annulus calcification
CPT/HCPCS: 93306

== ENCOUNTER 2025-05-03 19:07 | Emergency (ER) | payer MEDICARE, OTHER, SELFPAY ==
[2025-05-03 19:39] VITALS: BP 130/57; PULSE 105; RESP 16; TEMP 37.4; O2SAT 94; BMI 19.0
[2025-05-03 19:46] LABS: Basophils % 0.3 %; Eosinophils % 0.1 %; Hematocrit 35.1 % (36-47); Lymphocytes # 0.9 10^3/uL (0.8-4.8); Lymphocytes % 5.7 %; Mean Corpuscular HGB Conc 31.9 g/dL (30-55); Mean Corpuscular Hemoglobin 31.1 pg (27-33); Mean Corpuscular Volume 97.5 fl (85-98); Mean Platelet Volume 9.4 fL (7.4-10.4); Monocytes # 0.5 10^3/uL (0.2-0.9); Monocytes % 2.9 %; Neutrophils # 13.86 10^3/uL (1.8-7.7); Neutrophils % 90.4 %; Nucleated Red Blood Cells % 0 %; Platelet Count 222 10^3/cmm (157-399); Red Cell Distribution Width 13.7 % (12.1-15.1); White Blood Count 15.33 10^3/uL (3.29-11.43)
[2025-05-03 19:50] LABS: Erythrocyte Sedimentation Rate < 1 mm/hr (0-15)
[2025-05-03 20:01] LABS: Alanine Aminotransferase 14 U/L (0-33); Albumin Level 3.6 g/dL (3.5-5.2); Alkaline Phosphatase 100 U/L (35-105); Anion Gap 17.6 (5-19); Aspartate Amino Transferase 15 U/L (0-32); Blood Urea Nitrogen 19 mg/dL (8-23); C Reactive Protein 61.8 mg/L (0.0-4.9); Calcium 8.4 mg/dL (8.5-10.5); Carbon Dioxide 25 mmol/L (22-29); Chloride 97 mmol/L (98-107); Globulin 2.4 g/dL (1.3-4.6); Glucose 105 mg/dL (65-115); Osmolality Calculated 283 mOsm/kg (285-295); Potassium 4.6 mmol/L (3.5-5.1); Sodium 135 mmol/L (136-145); Total Bilirubin 0.7 mg/dL (0.15-1.2)
[2025-05-03 20:02] LABS: Lactic Sepsis W/Reflex 1.2 mmol/L (0.5-2.2)
--- NOTE | 2025-05-03 20:06 | W.ED.EXTPRO ---
HPI - Extremity Problem General: Chief complaint: Extremity Injury, Lower Stated complaint: spured by rooster fever, chills, leg red swollen Time Seen by Provider: 05/03/25 19:59 History of Present Illness: 84-year-old female who was spurred by a rooster 4 days ago. She has pain, redness, and swelling to the right leg. She says the swelling really showed up earlier today. She has had fever as well today. She relates her fever possibly, to right-sided nasal congestion with green discharge, not necessarily the leg swelling. She tells me she has a history of both MRSA, and a DVT in the past. Related Data Home Medications ?Medication ?Instructions ?Recorded ?Confirmed ascorbate calcium (vitamin C) 500 500 mg PO DAILY 11/23/23 04/02/25 mg tablet loratadine 10 mg tablet (Allergy 10 mg PO DAILY 11/23/23 04/02/25 Relief (loratadine)) triprol-PE 10 mg-DM 20 mg-acetamin 20 ml PO DAILY PRN mucus 11/23/23 04/02/25 650 mg-GG 400mg/20mL(d) liquids,seq (Mucinex Fast-Max Cold-Nghtshft) oxycodone 10 mg tablet 10 mg PO TID 09/05/24 04/02/25 aspirin 81 mg tablet,delayed 81 mg PO DAILY 11/04/24 04/02/25 release atorvastatin 40 mg tablet 40 mg PO .EVENING 11/04/24 04/02/25 Previous Rx's ?Medication ?Instructions ?Recorded bilateral AFO #1 ea 07/08/24 diclofenac sodium 1 % topical gel 4 g topical QID #100 grams 07/08/24 (Voltaren Arthritis Pain) diltiazem HCl 360 mg capsule,24 360 mg PO QAM #90 caps 07/11/24 hr,extended release isosorbide mononitrate 60 mg 60 mg PO BID #180 tabs 08/30/24 tablet,extended release 24 hr azelastine 137 mcg (0.1 %) nasal See Rx Instructions .Route 01/15/25 spray .COMPLEX #30 mL meloxicam 7.5 mg tablet 7.5 mg PO DAILY #30 tabs 01/15/25 gabapentin 100 mg capsule See Rx Instructions .Route 03/10/25 .COMPLEX #60 caps nitroglycerin 0.4 mg sublingual 0.4 mg sublingual Q5M PRN chest 03/14/25 tablet pain #30 tabs amoxicillin 875 mg-potassium 1 tab PO BID #20 tabs 05/03/25 clavulanate 125 mg tablet doxycycline hyclate 100 mg tablet 100 mg PO BID 10 days #20 tabs 05/03/25 Allergies Allergy/AdvReac Type Severity Reaction Status Date / Time vancomycin Allergy Intermediate Rash Verified 04/02/25 13:26 PFSH ED PFSH: Medical History History of obstruction of large intestine Hx of cataract Hypertension H/O deep venous thrombosis Doc-Danlos disease Surgical History Hx of sinus surgery History of back surgery laminectomy History of esophagogastroduodenoscopy (EGD) Hx of knee surgery right Hx of neck surgery Hx of carpal tunnel repair bilat Hx of colonoscopy 10+ years ago Hx laparoscopic cholecystectomy Family History Father Doc-Danlos syndrome Mother Alcohol dependence Social History Smoking and tobacco/nicotine status: never used tobacco/nicotine Alcohol intake: current Alcohol type: beer Substance/Drug Use: never Lives independently: Yes Household members: none Number of children: 4 Current occupational status: 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 Pets and animals: Yes Pets & animals: dog(s) Special kulwinder needs: No Agree to transfusion: Yes Physical Exam Const: COMMON NORMALS: no acute distress GENERAL APPEARANCE: cooperative; not ill appearing and not frail appearing HENMT: COMMON NORMALS: normocephalic, atraumatic and Normal external nose present HEAD & SCALP: normocephalic and atraumatic FACE & SINUS: normal facial exam and face symmetric NOSE: Normal external nose present THROAT: other (Mild postnasal drip) Eye: COMMON NORMALS: Equal, round and reactive pupils present and EOMs intact bilaterally PUPIL: Yes Equal, round and reactive pupils present Neck/C-Spine: GENERAL: Yes trachea midline Chest: CHEST: Yes Symmetrical chest wall rise Resp: COMMON NORMALS: normal respiratory effort, No retractions, No use of accessory muscles and clear to auscultation bilaterally AUSCULTATION: clear to auscultation bilaterally Cardio: COMMON NORMALS: regular rate and regular rhythm RATE: regular rate RHYTHM: regular rhythm GI: COMMON NORMALS: Normal to inspection, nondistended, normoactive bowel sounds present Extremity: NARRATIVE EXTREMITY EXAM: Examination the right leg reveals pitting edema. There is redness. There is warmth. There is a puncture wound to the anterior mid leg with some serous leakage. No streaking Neuro: TOMAS COMA SCALE: document GCS findings Tomas coma scale eye opening: Spontaneous Leigh coma scale verbal response: Orientated Tomas coma scale motor response: Obey commands Leigh coma scale total score: 15 SENSORY EXAM: Yes extremities (intact) Psych: COMMON NORMALS: speech normal SPEECH: Yes normal speech Skin: COMMON NORMALS: no rashes or lesions noted GENERAL SKIN EXAM: no rashes or lesions noted Course Vital Signs: Vital signs: Vital Signs Temperature 99.4 F 05/03/25 19:39 Pulse Rate 101 H 05/03/25 21:48 Respiratory Rate 16 05/03/25 21:48 Blood Pressure 134/63 05/03/25 21:48 Pulse Oximetry 93 05/03/25 21:48 Oxygen Delivery Me thod Room Air 05/03/25 19:39 MDM - Extremity (Nontraumatic) Medical Decision Making She has been stable here. No DVT on ultrasound. White blood cell count is 15. Hemoglobin is 11. Sed rate is less than 1, however CRP is 62. Lactic acid is 1.2. Blood cultures have been drawn. She has received clindamycin and Zosyn here. She will be allowed home on doxycycline and Augmentin. To return for worsening symptoms. Lab Data 05/03/25 19:34 05/03/25 19:34 Radiology Impressions Venous Duplex 05/03/25 20:10 IMPRESSION: No evidence of deep vein thrombosis. Laboratory Results WBC 15.33 10^3/uL (3.29-11.43) H 05/03/25 19:34 RBC 3.60 10^6/uL (3.85-5.65) L 05/03/25 19:34 Hgb 11.20 g/dL (11.27-16.99) L 05/03/25 19:34 Hct 35.1 % (36-47) L 05/03/25 19:34 MCV 97.5 fl (85-98) 05/03/25 19:34 MCH 31.1 pg (27-33) 05/03/25 19:34 MCHC 31.9 g/dL (30-55) 05/03/25 19:34 RDW 13.7 % (12.1-15.1) 05/03/25 19:34 Plt Count 222 10^3/cmm (157-399) 05/03/25:34 MPV 9.4 fL (7.4-10.4) 05/03/25 19:34 Neut % (Auto) 90.4 % 05/03/25 19:34 Lymph % (Auto) 5.7 % 05/03/25 19:34 Maury % (Auto) 2.9 % 05/03/25 19:34 Eos % (Auto) 0.1 % 05/03/25:34 Baso % (Auto) 0.3 % 05/03/25:34 Neut # (Auto) 13.86 10^3/uL (1.8-7.7) H 05/03/25 19:34 Lymph # (Auto) 0.9 10^3/uL (0.8-4.8) 05/03/25 19:34 Maury # (Auto) 0.5 10^3/uL (0.2-0.9) 05/03/25 19:34 Eos # (Auto) 0.0 10^3/uL (0.0-0.8) 05/03/25:34 Baso # (Auto) 0.0 10^3/uL (0.0-0.1) 05/03/25 19:34 Nucleated RBC % (auto) 0 % 05/03/25: Nucleated RBCs # 0.0 /100WBC 05/03/25:34 ESR < 1 mm/hr (0-15) 05/03/25 19:34 Sodium 135 mmol/L (136-145) L 05/03/25 19:34 Potassium 4.6 mmol/L (3.5-5.1) 05/03/25 19:34 Chloride 97 mmol/L (98-107) L 05/03/25:34 Carbon Dioxide 25 mmol/L (22-29) 05/03/25 19:34 Anion Gap 17.6 (5-19) 05/03/25 19:34 BUN 19 mg/dL (8-23) 05/03/25 19:34 Creatinine 1.3 mg/dL (0.5-0.9) H 05/03/25 19:34 GFR Calculation Not Reportable 05/03/25 19:34 Glucose 105 mg/dL (65-115) 05/03/25 19:34 Calculated Osmolality 283 mOsm/kg (285-295) L 05/03/25 19:34 Lactic Acid 1.2 mmol/L (0.5-2.2) 05/03/25 19:34 Calcium 8.4 mg/dL (8.5-10.5) L 05/03/25 19:34 Total Bilirubin 0.7 mg/dL (0.15-1.2) 05/03/25 19:34 AST 15 U/L (0-32) 05/03/25 19:34 ALT 14 U/L (0-33) 05/03/25 19:34 Alkaline Phosphatase 100 U/L (35-105) 05/03/25 19:34 C-Reactive Protein 61.8 mg/L (0.0-4.9) H 05/03/25 19:34 Total Protein 6.0 g/dL (6.6-8.7) L 05/03/25 19:34 Albumin 3.6 g/dL (3.5-5.2) 05/03/25 19:34 Globulin 2.4 g/dL (1.3-4.6) 05/03/25 19:34 All radiology interpretation(s) finalized by discharge Discharge Plan Discharge Patient Disposition: Home Clinical Impression: Puncture wound, Cellulitis of leg, right Condition: Stable Prescriptions: New doxycycline hyclate 100 mg tablet 100 mg PO BID 10 Days Qty: 20 0RF amoxicillin-pot clavulanate 875-125 mg tablet 1 tab PO BID Qty: 20 0RF No Action diclofenac sodium [Voltaren Arthritis Pain] 1 % gel 4 g topical QID Qty: 100 0RF Rx Instructions: apply to single knee, ankle, foot; for foot includes sole/toes/top of foot (DME) bilateral AFO See Rx Instructions .Route .MEDSUPPLY Qty: 1 0RF Rx Instructions: As directed to the shoe guys loratadine [Allergy Relief (loratadine)] 10 mg tablet 10 mg PO DAILY Mucinex Fast-Max Cold-Nghtshft 74-83-458-400 mg/20 mL liquid, sequential 20 ml PO DAILY PRN (Reason: mucus) ascorbate calcium (vitamin C) 500 mg tablet 500 mg PO DAILY diltiazem HCl 360 mg capsule,extended release 24 hr 360 mg PO QAM Qty: 90 3RF nitroglycerin 0.4 mg tablet, sublingual 0.4 mg sublingual Q5M PRN (Reason: chest pain) Qty: 30 6RF Rx Instructions: do not exceed 3 doses per episode isosorbide mononitrate 60 mg tablet extended release 24 hr 60 mg PO BID Qty: 180 3RF oxycodone 10 mg tablet 10 mg PO TID azelastine 137 mcg (0.1 %) spray,non-aerosol See Rx Instructions .ROUTE .COMPLEX Qty: 30 2RF Dose Instruction: instill TWO SPRAYS into each nostril TWICE DAILY Rx Instructions: instill TWO SPRAYS into each nostril TWICE DAILY meloxicam 7.5 mg tablet 7.5 mg PO DAILY Qty: 30 2RF gabapentin 100 mg capsule See Rx Instructions .ROUTE .COMPLEX Qty: 60 2RF Dose Instruction: TAKE ONE CAPSULE BY MOUTH TWICE DAILY FOR PAIN Rx Instructions: TAKE ONE CAPSULE BY MOUTH TWICE DAILY FOR PAIN atorvastatin 40 mg tablet 40 mg PO .EVENING aspirin [Aspir-81] 81 mg Tablet,Delayed Release (Dr/Ec) 81 mg PO DAILY Discharge Orders: Discharge ED (Routine); Ordered 05/03/25 Ordered By: Nahun Medina Referrals: Halley العلي MD [Primary Care Provider, Family Practice] - 1-3 days Patient Instructions: Puncture Wound (ED), Cellulitis (ED), Opioid Safety, Pain Management Activity Restrictions/Additional Instructions: Elevate the leg is much as possible. Antibiotics as directed. Return for worsening swelling, redness, fever despite at least 3 doses of antibiotics at home. Return also for altered mental status, vomiting liquids or medications, any other concerns. Call your doctor Monday morning for a follow-up appointment. Print Language: Slovak Coding Level of Care Code ED Pre Sales Architect for Edwin Paige
--- NOTE | 2025-05-03 20:10 | USR_ITS ---
PROCEDURE INFORMATION: Exam: US Duplex Right Lower Extremity Veins, Limited Exam date and time: 05/03/2025 8:31 PM Age: 84 years old Clinical indication: Edema, localized; Lower extremity, right; Additional info: Redness swelling warmth right leg TECHNIQUE: Imaging protocol: Real-time duplex ultrasound of the right extremity with 2-D pickens scale, color Doppler flow and spectral waveform analysis including responses to compression and other maneuvers (when performed) with image documentation. Limited exam was focused on the right lower extremity veins. COMPARISON: [place] [id number] ORTH 07/08/2024 1:38 PM FINDINGS: Right deep veins: Unremarkable. The common femoral, femoral, proximal profunda femoral and popliteal veins are patent without thrombus. Normal Doppler waveforms. Normal compressibility and/or augmentation response. Superficial veins: Greater saphenous vein at the saphenofemoral junction is patent without thrombus. Soft tissues: Unremarkable. US/[place] [id number] IMPRESSION: No evidence of deep vein thrombosis.
[2025-05-03] MEDS: piperacillin-tazobactam 4.5 GM in sodium chloride 0.9% (plus) 50 ML IV (21:02)
[2025-05-03] MEDS: clindamycin 900 MG/50 ML PREMIX 100 MG IV (21:17)
[2025-05-03 21:48] VITALS: BP 134/63; PULSE 101; RESP 16; O2SAT 93
== END 2025-05-03 21:47 | disposition home or self-care (01) ==
PROVIDERS: Emergency Medicine; Emergency Provider Emergency Medicine; PCP Family Medicine
DX: S81.831A Puncture wound without foreign body, right lower leg, initial encounter (principal); W64.XXXA Exposure to other animate mechanical forces, initial encounter; L03.115 Cellulitis of right lower limb; Z79.82 Long term (current) use of aspirin
CPT/HCPCS: 36415; 80053; 83605; 85025; 85651; 86140; 87040; 93971; 96374; 96375; 99284; J2543; J3490

== ENCOUNTER 2025-05-14 16:59 | Outpatient (CLI) | payer MEDICARE, OTHER, SELFPAY ==
--- NOTE | 2025-05-14 17:05 | CT_ITS ---
WS: [id number] CT ABDOMEN WITH CONTRAST HISTORY: BEZOAR ENTERING INTO OR THROUGH A NATURAL ORIFICE Contiguous single phase 5 mm axial imaging performed to the abdomen. Oral contrast has not been provided. Coronal and sagittal reformats are submitted. All CT scans at [facility] use at least one of these dose optimization techniques: automated exposure control; mA and/or kV adjustment per patient size (includes targeted exams where dose is matched to clinical indication); or iterative reconstruction. IV CONTRAST: Omnipaque 350; 100 mL IV. Oral contrast: No DLP: 118.07 mGy.cm COMPARISON: None available. Lower thorax: Thin curvilinear atelectasis at the RIGHT lung base. Mild cardiomegaly. No hiatal hernia. Liver/biliary system: Normal size liver. Intrahepatic biliary ductal dilatation. May be related to aging and prior cholecystectomy. Common bile duct is dilated through the pancreatic head. No mass identified. Gallbladder: Prior cholecystectomy. Pancreas: Limited visualization without surrounding mesenteric fat. Spleen: Normal size spleen. No mass or infarct. Adrenal glands: Normal. Right kidney: Unremarkable. Limited evaluation as there is beam hardening artifact from patient's spinal hardware. No obstruction or mass evident. Left kidney: Limited due to beam hardening artifact. No obvious mass or obstruction. Aorta: Moderate atherosclerosis with no aneurysm. Marked atherosclerotic plaque abdominal aorta. Ectatic but nonaneurysmal. Dense calcification of the origin of the celiac axis and SMA but no high-grade occlusions. Lymphadenopathy: None. Free fluid: None. GI tract: GI tract within the abdomen demonstrates constipation and increased air in the colon. No obvious obstruction. Abdominal wall: Unremarkable abdominal wall. No hernia. Visualized osseous structures: Prior posterior lumbar fusion causing artifact. Scoliosis. CT/CT abdomen w con* [id number] IMPRESSION: 1. CT is performed of the abdomen only as requested. 2. Intrahepatic and extrahepatic biliary dilatation may be on the basis of kayode ng and related to the cholecystectomy. No mass or abnormality noted at the panc reatic head. 3. 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 4. Limit evaluation of the kidneys. No obstruction evident. 5. Constipation.
[2025-05-14] MEDS: iohexol 350 mg/mL 500 mL Btl (per mL) IV (18:06)
== END 2025-05-14 17:00 | disposition home or self-care (01) ==
LOC: RAD 16:59
PROVIDERS: PCP Family Medicine
DX: K83.8 Other specified diseases of biliary tract (principal); K76.89 Other specified diseases of liver; Z90.49 Acquired absence of other specified parts of digestive tract; I70.0 Atherosclerosis of aorta; W44.F Objects of natural or organic material entering into or through a natural orifice
CPT/HCPCS: 74160

== ENCOUNTER 2025-05-19 15:55 | Outpatient (CLI) | payer MEDICARE, OTHER, SELFPAY | END 2025-05-19 15:56 | disposition home or self-care (01) | PROVIDERS: PCP Family Medicine | DX: Z01.89 Encounter for other specified special examinations (principal); W44.F Objects of natural or organic material entering into or through a natural orifice | CPT/HCPCS: 36415; 82565 ==

== ENCOUNTER 2025-06-12 14:47 | Outpatient (CLI) | payer MEDICARE, OTHER, SELFPAY ==
[2025-06-12 15:29] LABS: Hematocrit 32.7 % (36-47); Hemoglobin 10.30 g/dL (11.27-16.99); Mean Corpuscular HGB Conc 31.5 g/dL (30-55); Mean Corpuscular Hemoglobin 30.3 pg (27-33); Mean Corpuscular Volume 96.2 fl (85-98); Nucleated Red Blood Cells % 0 %; Platelet Count 277 10^3/cmm (157-399); Red Blood Count 3.40 10^6/uL (3.85-5.65); White Blood Count 6.36 10^3/uL (3.29-11.43)
== END 2025-06-12 14:48 | disposition home or self-care (01) ==
LOC: LAB 14:56
PROVIDERS: PCP Family Medicine; Visit Provider Surgery
DX: Q79.60 Ehlers-Danlos syndrome, unspecified (principal); K31.84 Gastroparesis; I77.4 Celiac artery compression syndrome; Z01.818 Encounter for other preprocedural examination
CPT/HCPCS: 36415; 85025

== ENCOUNTER → 2025-07-08 10:38 | Outpatient (BNVA) | payer MEDICARE, OTHER, SELFPAY | PROVIDERS: PCP Family Medicine; Visit Provider Podiatrist Foot & Ankle Surgery | DX: M20.41 Other hammer toe(s) (acquired), right foot (principal); M20.42 Other hammer toe(s) (acquired), left foot; M19.90 Unspecified osteoarthritis, unspecified site; R60.9 Edema, unspecified; M21.612 Bunion of left foot | CPT/HCPCS: 99214 ==

== ENCOUNTER 2025-07-21 20:04 | Emergency (ER) | payer MEDICARE, OTHER, SELFPAY ==
--- OUTSIDE RECORDS SUMMARY | 2025-03-03 09:00 | XMS_ITS ---
Author Organization [facility] Address [address], [place] [id number] Care Team Providers Care Blood Tester Fowl Name Role Phone Sharri CRUZ, Mykel Unavailable [phone] Zohra CRUZ, Halley Unavailable Unavailable Tiburcio MA, Judit Unavailable [phone] REASON FOR VISIT New patient evaluation, FALL Encounters Encounter Location Date Provider Diagnosis [facility] [address] [place], [place] [id number] 03/03/2025 Judit Dey [facility] Z79.899 Assessments Encounter Date Diagnosis (ICD Code) Assessment Notes Treatment Notes Treatment Clinical Notes Section Notes 03/03/2025 [facility] [place] (ICD-10 - Z79.899) Patient was given a copy of the Treatment Agreement; signed on . 2022 opioid (OUD) risk tool score = . This places the patient in the low/high risk category. Plan urine toxicology screen today in anticipation of possibly starting opioid therapy at future visit as well as to assess for any prescribed, unprescribed, and / or illicit controlled substance(s). Plan Of Treatment Treatment Notes Assessment Notes [facility] therapy Patient was given a copy of the Treatment Agreement; signed on . 2022 opioid (OUD) risk tool score = . This places the patient in the low/high risk category. Plan urine toxicology screen today in anticipation of possibly starting opioid therapy at future visit as well as to assess for any prescribed, unprescribed, and / or illicit controlled substance(s). Progress Notes * Aga ORDONEZDOB: 0 (84 yo F)Acc No.[id number]:03/03/2025 Patient: Kavya Aga THOMAS Provider: ANIL Dexter :1940 A ge:84 Y S ex:Female Date:03/03/2025 Address:[address] [place], [place] [id number] Subjective: * Chief Complaints: * 1 . New patient evaluation. 2. FALL. * HPI: C ervical Spine: 84 year old female presents with c/o pain f or * i n the neck. T horacic Spine: c/o pain f or * i n the mid back. L umbar Spine: c/o pain f or * i n the lower back. S acro-Iliac / Coccyx: c/o pain f or * * . P otential Work or Litigation Related Injury: No: p atient stated pain is not due to a work or litigation related injury. P hysician's referral: Physician's referral received: sigifredo [address] Dr. * for *; see scanned documents. P hysician/Clinic notes: Notes received from: * . P revious Imaging/Studies: Previous imaging: * . CT * . X-rays * . MRI * . P revious Therapy: Previous therapy: p hysical therapy for * with * benefit for weeks; home exercises for * with * benefit for weeks; chiropractic manipulation for * with * benefit for weeks; ice/heat therapy with * benefit for weeks; muscle relaxants for * with * benefit for weeks; anti-inflammatories for * with * benefit for weeks. Medication history: * . M edications: * ROS: C onstitutional: : N egative. O pthalmology: : N egative. H ENT: : N egative. C ardiovascular: : N egative. R espiratory: Sleep Apnea Screening: p atient described sleep as * with complaint of . E pworth Sleepiness Scale: * . G astrointestinal: : N egative. I ntegumentary/ Dermatology: : N egative. N eurological: Claustrophobic: * . P sychiatric: : N egative. E ndocrine: : N egative. H ematology/Lymphatic: : N egative. * Medical History: * Social History: M arijuana: no. M eth: no. O ther illicit drug use: no. M arried: *. E ducation: highest grade completed 12th. O ccupation: no. E xercise: 1-2 days per week. T ravel: no. Objective: * Vitals: Therapeutic Interventions: * Therapeutic Interventions: 1 . D rug Screening Urine Sample : collected (results pending) 2 . I llicit drugs Social history : information is accurate regarding illicit drugs and dates of last use; if applicable. Patient confirmed that current listed medications are accurate and include all medications (prescribed and OTC) used within the past 2 months Assessment: * Assessment: 1. O the[facility] [place] [facility] - Z79.899 (Primary) Plan: * Treatment: * Procedure Codes: 8 0305 Urine Dip Cup, Modifiers: QW * Preventive Medicine: Counseling: P ain Management: Follow-up Plan documented: Y es Pain Screening: * * Images: * Electronic signature of Verenice MA on 07/21/2025 at 08:11 PM CDT Sign off status: Pending * Provider: ANIL Dexter Date: 0 03/03/2025 Generated for Bo Amaral on: 0 07/21/2025 08:11 PM CDT History and Physical Notes * HPI (History of Present Illness) Category Sub-Category Detail Notes Category Not es Lumbar Spine pain in the lower back Cervical Spine pain in the neck Thoracic Spine pain in the mid back Sacro-Iliac / Coccyx pain * Medications Previous Therapy Previous therapy: certified adapted physical educator apy for * with * benefit for weeks; home exercises for * with * benefit for weeks; chiropractic manipulation for * with * benefit for weeks; ice/heat therapy with * benefit for weeks; muscle relaxants for * with * benefit for weeks; anti-inflammatories for * with * benefit for weeks Medication history: * Potential Work or Litigation Related Injury No: patient stated pain is not d ue to a work or litigation related injury Previous Imaging/Studies MRI * CT * Previous imaging: * X-rays * Physician's referral Physician's referral receiv ed: from Dr. Pedraza for *; see scanned documents Physician/Clinic notes Notes received from: *
--- OUTSIDE RECORDS SUMMARY | 2025-06-16 03:30 | XMS_ITS ---
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 Encounters Encounter Location Date Provider Diagnosis [facility] [address] [place] [address] 06/16/2025 Loy Barrow Plan Of Treatment Next Appt Details Provider Name:Christin dangelo, 07/24/2025 12:40:00 PM, [address] [place], [address], Provider Name:Ian barahona, 10/02/2025 10:00:00 AM, [address] [place] [address] [address], [place], [address], Provider Name:Zulay brownlee, 10/02/2025 10:30:00 AM, [address] [place] [address] [place], [address], Progress Notes * BRITANY ORDONEZDOB: 0 (84 yo F)Acc No.[id number]:06/16/2025 [place] Patient: BRITANY MCCORMACK Provider: Anna Barrow MD :1940 A ge:84 Y S ex:Female Date:06/16/2025 Address:[address] [place], [place] [id number] Pcp:Halley العلي Subjective: * Chief Complaints: * O P 0700 - 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
[2025-07-21 20:04] VITALS: BP 180/44; PULSE 67; RESP 16; TEMP 36.6; O2SAT 95; BMI 19.7
--- OUTSIDE RECORDS SUMMARY | 2025-07-21 20:11 | XMS_ITS | Patient Health Record ---
Author Organization [facility] Address [address] [place] [address] Drive MAVIS ROWE, [place] [address] Care Team Providers Care Director Records Management Name Role Phone Halley العلي Primary Care Provider Unavailab Russ Castañeda Unavailable [phone] Gabriel Montalvo Unavailable Unavailable Jossue Giles Unavailable [phone] Amada Garcia Unavailable [phone] Migration, Provider Unavailable Unavailable Mathew Babni Unavailable [phone] Loy Barrow Unavailable [phone] Fernando Soto Unavailable [phone] Christin Ballesteros Unavailable [phone] Estrella Chaudhari Unavailable [phone] Allergies Allergen (clinical drug ingredient) Drug/Non Drug Allergy documented on EMR Reaction Allergy Type Onset Date Status vancomycin Vancomycin Unknown Drug Allergy Activ e Results Component Value Reference Range Flag Notes Basic Metabolic Panel (BMP) 29960 Reviewed date:06/17/2025 04:21:55 PM Interpretation: Performing Lab: Notes/Report: Sodium 141 136-145 MMOL/L Potassium 4.1 3.5-5.1 MMOL/L Chloride 108 98-107 MMOL/L HI CO2 25.4 20.0-31.0 MMOL/L Glucose Serum 94 71-110 MG/DL Testing p erformed at [facility], [address] [place] [address] Dr. Mavis Rowe, [place] [address]. CLIA ID#: [id number] BUN 15 7-21 MG/DL Creat .78 .51-1.17 MG/DL N-fizyqr-d-benzoquinon e imine (NAPQI) is a metabolite of acetaminophen, NAPQI concentrations of apparoximately 10 mg/L correlation to toxic levels of acetaminophen demonstrates a greater than or equil to 10% change in results. NAPQI concentrations greater than this may lead to falsely depressed results for patient samples. Use of this assay is not recommended for patients undergoing treatment with phenindione, due to the potential for falsely depressed results. GFR 74.4 NA Calculation pe rformed from GFR calculator provided by the [employer]. Glomerular Filtration rate(GRF) is the best overall index of kidney function. Normal GFR varies according to age,sex, body size, and declines with age. The [employer] recommends using the CKD-EPI Creatinine Equation(2020) to estimate GFR. Anion Gap 12 5-15 BUN/Creat Ratio 19.2 12.0-20.0 % Calcium 8.0 8.7-10.4 MG/DL LOW Osmo Serum,Calculated 293 280-300 MOSM/KG XR Outside CD (Not yet revie wed by provider) Interpretation: Performing Lab: Notes/Report: [id number]&org=iSite POCT-ACT--NO CPT Reviewed date:06/23/2025 11:52:44 AM Interpretation: Performing Lab: Notes/Report: POCT-ACT 193 75-120 SEC HI POCT-ACT--NO CPT Reviewed date:06/23/2025 11:52:44 AM Interpretation: Performing Lab: Notes/Report: POCT-ACT 381 75-120 SEC HI zzzCT Outside CD (Not yet re viewed by provider) Interpretation: Performing Lab: Notes/Report: [id number]=iSite zzzMesenteric Angiogram Reviewed date:06/17/2025 04:21:55 PM Interpretation: Performing Lab: Notes/Report: See Below For Report This report was dictated outside of the [employer] system. Read See Below For Report zzzMesenteric Angiogram Reviewed date:06/17/2025 04:21:55 PM Interpretation: Performing Lab: Notes/Report: [id number]&org=iSite Schedule Confirmation Reviewed date:06/17/2025 04:21:55 PM Interpretation: Performing Lab: Notes/Report: Mesenteric Angiogram Schedule Confirmation Reviewed date:06/17/2025 04:21:55 PM Interpretation: Performing Lab: Notes/Report: Mesenteric Angiogram Urine Drug Screen (cup read) - [id number] Reviewed date:03/12/2025 03:48:54 PM Interpretation: Performing Lab: Notes/Report: OPI + OXY + Urine Drug Screen (cup read) - 51537 Reviewed date:11/07/2024 03:52:14 PM Interpretation: Performing Lab: Notes/Report: OXY + zzzUrine Drug Screen (confir mation by instrument) - 30726 Reviewed date:11/14/2024 01:29:43 PM Interpretation: Performing Lab: Notes/Report: Urine Confirmation Panel (in strument) - 19662 Reviewed date:03/18/2025 11:02:42 AM Interpretation: Performing Lab: Notes/Report: 6-Acetylmorphine 0 <6 ng/mL N This judith t was developed and its performance characteristics determined by [facility]. It has not been cleared or approved by the U.S. Food and Drug Administration. 7-Aminoclonazepam 0 <60 ng/mL N This te st was developed and its performance characteristics determined by [facility]. It has not been cleared or approved by the U.S. Food and Drug Administration. Alprazolam 0 <60 ng/mL N This test was developed and its performance characteristics determined by [facility]. It has not been cleared or approved by the U.S. Food and Drug Administration. Amphetamine 0 <75 ng/mL N This test was developed and its performance characteristics determined by [facility]. It has not been cleared or approved by the U.S. Food and Drug Administration. aOH-Alprazolam 0 <60 ng/mL N This test was developed and its performance characteristics determined by [facility]. It has not been cleared or approved by the U.S. Food and Drug Administration. Buprenorphine 0.0 <7.5 ng/mL N This test w as developed and its performance characteristics determined by [facility]. It has not been cleared or approved by the U.S. Food and Drug Administration. Norbuprenorphine 0.0 <37.5 ng/mL N This te st was developed and its performance characteristics determined by [facility]. It has not been cleared or approved by the U.S. Food and Drug Administration. Carisoprodol 0 <75 ng/mL N This test wa s developed and its performance characteristics determined by [facility]. It has not been cleared or approved by the U.S. Food and Drug Administration. Codeine 0 <75 ng/mL N This test was developed and its performance characteristics determined by [facility]. It has not been cleared or approved by the U.S. Food and Drug Administration. EDDP 0 <75 ng/mL N This test was developed and its performance characteristics determined by [facility]. It has not been cleared or approved by the U.S. Food and Drug Administration. Fentanyl 0 <6 ng/mL N This test was developed and its performance characteristics determined by [facility]. It has not been cleared or approved by the U.S. Food and Drug Administration. Hydrocodone 0 <75 ng/mL N This test was developed and its performance characteristics determined by [facility]. It has not been cleared or approved by the U.S. Food and Drug Administration. Hydromorphone 0 <75 ng/mL N This test w as developed and its performance characteristics determined by [facility]. It has not been cleared or approved by the U.S. Food and Drug Administration. Lorazepam 0 <60 ng/mL N This test was developed and its performance characteristics determined by [facility]. It has not been cleared or approved by the U.S. Food and Drug Administration. MDMA 0 <75 ng/mL N This test was developed and its performance characteristics determined by [facility]. It has not been cleared or approved by the U.S. Food and Drug Administration. Meperidine 0.0 <37.5 ng/mL N This test was developed and its performance characteristics determined by [facility]. It has not been cleared or approved by the U.S. Food and Drug Administration. Meprobamate 0 <75 ng/mL N This test was developed and its performance characteristics determined by [facility]. It has not been cleared or approved by the U.S. Food and Drug Administration. Methamphetamine 0 <75 ng/mL N This test was developed and its performance characteristics determined by [facility]. It has not been cleared or approved by the U.S. Food and Drug Administration. Methadone 0 <75 ng/mL N This test was developed and its performance characteristics determined by [facility]. It has not been cleared or approved by the U.S. Food and Drug Administration. Morphine 0 <75 ng/mL N This test was developed and its performance characteristics determined by [facility]. It has not been cleared or approved by the U.S. Food and Drug Administration. Nordiazepam 0 <60 ng/mL N This test was developed and its performance characteristics determined by [facility]. It has not been cleared or approved by the U.S. Food and Drug Administration. Norfentanyl 0 <6 ng/mL N This test was developed and its performance characteristics determined by [facility]. It has not been cleared or approved by the U.S. Food and Drug Administration. Normeperidine 0.0 <37.5 ng/mL N This test was developed and its performance characteristics determined by [facility]. It has not been cleared or approved by the U.S. Food and Drug Administration. O-desmethyltramadol 0 <75 ng/mL N This test was developed and its performance characteristics determined by [facility]. It has not been cleared or approved by the U.S. Food and Drug Administration. Oxazepam 0 <60 ng/mL N This test was developed and its performance characteristics determined by [facility]. It has not been cleared or approved by the U.S. Food and Drug Administration. Oxycodone >2500.0 <37.5 ng/mL > This test was developed and its performance characteristics determined by [facility]. It has not been cleared or approved by the U.S. Food and Drug Administration. Oxymorphone 1256 <75 ng/mL H This test was developed and its performance characteristics determined by [facility]. It has not been cleared or approved by the U.S. Food and Drug Administration. Phencyclidine 0.0 <7.5 ng/mL N This test w as developed and its performance characteristics determined by [facility]. It has not been cleared or approved by the U.S. Food and Drug Administration. Tapentadol 0.0 <37.5 ng/mL N This test was developed and its performance characteristics determined by [facility]. It has not been cleared or approved by the U.S. Food and Drug Administration. Temazepam 0 <60 ng/mL N This test was developed and its performance characteristics determined by [facility]. It has not been cleared or approved by the U.S. Food and Drug Administration. Tramadol 0 <75 ng/mL N This test was developed and its performance characteristics determined by [facility]. It has not been cleared or approved by the U.S. Food and Drug Administration. Norhydrocodone 0 <75 ng/mL N This test was developed and its performance characteristics determined by [facility]. It has not been cleared or approved by the U.S. Food and Drug Administration. Noroxycodone >2500 <38 ng/mL > This test wa s developed and its performance characteristics determined by [facility]. It has not been cleared or approved by the U.S. Food and Drug Administration. Pregabalin 0 <225 ng/mL N This test was developed and its performance characteristics determined by [facility]. It has not been cleared or approved by the U.S. Food and Drug Administration. Gabapentin >58390 <225 ng/mL > This test was developed and its performance characteristics determined by [facility]. It has not been cleared or approved by the U.S. Food and Drug Administration. Benzoylecgonine 0.0 <37.5 ng/mL N This judith t was developed and its performance characteristics determined by [facility]. It has not been cleared or approved by the U.S. Food and Drug Administration. 4-Hydroxy Xylazine 0 <25 ng/mL N This t est was developed and its performance characteristics determined by [facility]. It has not been cleared or approved by the U.S. Food and Drug Administration. 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) Referring Provider First Name Halley Referring Provider Last Name Zohra Referring Provider [facility] Referred Organization [facility] Referred Provider Loy Barrow Referred Address [address] [place] [address] [address], [place],[address], Referred Provider Specialty Vascular Mimi will General Notes Danitza Maddox 09/05/20 24 10:23:31 AM >requested any records for testing celiac artery, Danitza Maddox 09/09/2024 03:22:41 PM >pending images from [facility] in [place], Tan SOLORZANO Lisa 09/26/2024 10:09:11 AM >disk received. Please schedule patient with Dr. Barrow or Jayjay Sanders Brittany M 09/26/2024 04:23:26 PM >Appointment scheduled on 10.08 @ 3:30 Referral Priority Routine Reason Lumbar failed back s urgery syndrome Diagnosis 1 Chronic pain syndrom e (G89.4) Referring Provider First Name Fernando Referring Provider Last Name Charles Referring Provider Speciality Inter[facility]al Pain [facility] Referred Organization [facility] [place] Referred Provider Mathew Babin Referred Address [address] [facility], Referred Provider Specialty Neurological Surgery Referral Priority Routine Reason Lumbar failed back s urgery syndrome Diagnosis 1 Chronic pain syndrom e (G89.4) Referral Organization [facility] Referring Provider First Name Fernando Referring Provider Last Name Charles Referring Provider Speciality Interventi onal Pain Medicine Referred Organization [facility] [place] Referred Provider Mathew Babin Referred Address [address] [facility] Referred Provider Specialty Neurological Surgery Referral Priority Routine Reason L3/4 YAAKOV Diagnosis 1 Lumbar radiculopathy (M54.16) Referral Organization [facility] [place] Referring Provider First Name Mathew Referring Provider Last Name Talya Referring Provider Speciality Neurologic al Surgery Referred Provider Fernando Soto Referred Provider Specialty [facility]vention [facility] Pain [facility] Referral Priority Routine Reason L 3/4 YAAKOV Diagnosis 1 Lumbar radiculopathy (M54.16) Referral Organization [facility] [place] Referring Provider First Name Mathew Referring Provider Last Name Talya Referring Provider Speciality Neurologic al Surgery [facility] Provider Fernando Soto Referred Address [address],[place],[address],[place] Referred Provider Specialty [facility] Referral Priority Routine Medications Medication SIG (Take, Route, Frequency, Duration) Notes Start Date End Date Status Isosorbide Mononitrate ER 60 MG Tablet Extended Release 24 Hour 1 tablet in the morning Orally twice a day Active oxyCODONE-Acetaminoph en 10-325 MG Tablet 1 tablet as needed Orally every 6 hrs Not-Taking Mucinex 600 MG Tablet Extended Release 12 Hour 1 tablet as needed Orally every 12 hrs Not-Taking Meloxicam 7.5 MG Tablet 1 tablet Orally Once a day Active Reglan 5 MG Tablet 1 tablet before meals Orally Twice a day; Duration: 60 days 06/06/2025 Not-Taking Loratadine 10 MG Tablet 1 tablet Orally Once a day Active Pantoprazole Sodium 40 MG Tablet Delayed Release 1 tablet 1/2 to 1 hour before morning meal Orally twice a day Not-Taking Sudafed 30 MG Tablet 2 tablets as needed Orally every 6 hrs Not-Taking Amitriptyline HCl 25 MG Tablet 1 tablet at bedtime Orally Once a day Not-Taking tiZANidine HCl 4 MG Tablet 1 tablet at bedtime as needed Orally Once a day; Duration: 30 days fill 30 days from last rx Active Aspirin 81 81 MG Tablet Chewable 1 tablet Orally Once a day Active diphenhydrAMINE HCl 25 MG Capsule 1 capsule at bedtime as needed Orally Once a day Benadryl Not-Taking Azelastine HCl 137 MCG/SPRAY Solution 1 puff in each nostril Nasally Twice a day Not-Taking dilTIAZem HCl ER 360 MG Tablet Extended Release 24 Hour 1 capsule Orally Once a day Active Atorvastatin Calcium 40 MG Tablet 1 tablet Orally Once a day Active MiraLax 17 GM/SCOOP Powder 1 scoop mixed with 8 ounces of fluid as needed Orally Once a day Not-Taking Pregabalin 25 mg Capsule TAKE ONE CAPSULE BY MOUTH TWICE DAILY for 30 days; Duration: 30 Last refill, patient's PCP should take over this prescription 07/14/2025 Active Social History Tobacco Use: Social History Observation Description Date Details (start date - stop date) Former Smoker NA - NA Social History Drugs/Alcohol: Social Info Question Answer Notes Caffeine Intake: 1-2 cups per day Drug/Alcohol: Social Info Question Answer Notes AUDIT-C (Standard) Did you have a drink containing alcohol in the past year? Yes How often did you have a drink containing alcohol in the past year? Daily or almost daily (4 points) How many drinks did you have on a typical day when you were drinking in the past year? 1 or 2 drinks (0 point) How often did you have six or more drinks on one occasion in the past year? Never (0 point) Points 4 Interpretation Positive Tobacco Use: Social Info Question Answer Notes Tobacco Control (Standard) Tobacco use: Former smoker How long has it been since you last smoked? Greater than 10 years Additional Details Category Social Info Options Details Drugs/Alcohol: Do you smoke marijuana? De nies Do you drink alcohol? Yes, , Myrna desmond, beer Migrated Social History Migrated Social History Alcoholic beverages? - No, Currently on disability? - Yes, Marital Status - , Participation in detoxification or rehabilitation - No, Smoking - No, Working currently? - Yes Section Notes: stopped smoking in 1989 drinks about 1 cup weak coffee a week stopped smoking in 1989 drinks about 1 cup weak coffee a week stopped smoking in 1989 drinks about 1 cup weak coffee a week Problems Problem Type SNOMED Code ICD Code Onset Dates Problem Status W/U Status Risk Notes Problem Chronic pain (01123831) Other chronic pain (G89.29) Active confirmed Problem Chronic pain syndrome (468933497) Chronic pain syndrome (G89.4) Active confirmed Problem Gastroparesis (783916329) Gastroparesis (K31.84) Active confirmed Problem Acquired spondylolisthesis (391516501) Spondylolisthesis , lumbar region (M43.16) Active confirmed Problem Cervical spondylosis without myelopathy (325883015) Other spondylosis with radiculopathy, cervical region (M47.22) Active confirmed Problem Lumbosacral spondylosis without myelopathy (12985220) Other spondylosis with radiculopathy, lumbosacral region (M47.27) Active confirmed Problem Degeneration of cervical intervertebral disc (18424631) Other cervical disc degeneration, unspecified cervical region (M50.30) Active confirmed Problem Degeneration of lumbar intervertebral disc (78182615) Other intervertebral disc degeneration, lumbar region (M51.36) Active confirmed Problem Post-laminectomy syndrome (88026833) Postlaminectomy syndrome, not elsewhere classified (M96.1) Active confirmed Problem Dysphagia (64296788) Dysphagia, unspecified (R13.10) Active confirmed Problem Abnormal gait (94783838) Unspecified abnormalities of gait and mobility (R26.9) Active confirmed Problem High risk drug monitoring status (760815526) nursing home (current) use of opiate analgesic (Z79.891) Active confirmed Problem Shoulder joint prosthesis present (finding) (285788559) 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) 06/20/2 024 Active confirmed 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, 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 Active confirmed Problem Lumbar radiculopathy (342279489) Lumbar radiculopathy (M54.16) Active confirmed Problem Lumbar spondylosis (906639181) Lumbar spondylosis (M47.816) Active confirmed Problem Lumbar spinal stenosis (60368104) Lumbar foraminal stenosis (M48.061) Active confirmed Problem Globus sensation (060551988) Globus sensation (F45.8) Active confirmed Problem S/P angioplasty with stent (Z95.820) Active confirmed Problem Bowel incontinence (05917197) Fecal incontinence (R15.9) Active confirmed Problem Dysphagia (36533088) Dysphagia (R13.10) Active confirmed Problem Loss of appetite (60604647) Loss of appetite (R63.0) Active confirmed Problem Peripheral vascular disease (580062096) Peripheral vascular disease (I73.9) Active confirmed Problem Neurogenic claudication (833317143) Lumbar stenosis with neurogenic claudication (M48.062) Active confirmed Problem 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 Problem Intermittent claudication of bilateral lower limbs co-occurrent and due to atherosclerosis (finding) (99321614835730716) Atheroscler of [place] artery of both legs with intermit claudication (I70.213) Active confirmed Problem Bezoar entering into or through a natural orifice, initial encounter (W44.F1XA) Active confirmed Problem Stenosis of celiac artery (18985155029582209) 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 Vital Signs Heart Rate 58 /min 06/30/2025 Temperature 97.9 degrees Fahrenheit 06/30/2025 Respiratory Rate 18 /min 04/11/2025 Blood pressure diastolic 82 mm Hg 06/30/2025 Height-cm 156.21 cm 06/30/2025 Oximetry 96 % 06/30/2025 Weight-kg 51.0 kg 06/30/2025 Height 61.5 in 06/30/2025 Blood pressure systolic 126 mm Hg 06/30/2025 Weight 112.43 lbs 06/30/2025 BMI 20.9 kg/m2 06/30/2025 Procedures Procedure Date Ordered Date Performed Result Body Sit e Epidural, Lumbar/Sacral (Cau debora), w/ imaging guidance - 04327 05/01/2025 05/01/2025 N/A Encounters Encounter Location Date Provider Diagnosis [facility] [address] [place] [address] 03/06/2025 Abodunrin Abnerejo [facility] [address] [place] [address] 06/16/2025 Loy Barrow [facility] [place] [address] [place] [address] 07/24/2024 Fernando Soto [facility] [place] [address] [place] [address] 09/19/2024 Christin Ballesteros [facility] [address] [place] [address] 10/08/2024 Loy Pushpa 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 [facility] [place] [address] [place] [phone] 11/07/2024 Christin Ballesteros Chronic pain syndrom e G89.4 ; Other cervical disc degeneration, unspecified cervical region M50.30 ; Other spondylosis with radiculopathy, cervical region M47.22 ; Degeneration of intervertebral disc of lumbar region with discogenic back pain M51.360 ; Other spondylosis with radiculopathy, lumbosacral region M47.27 ; Postlaminectomy syndrome, not elsewhere classified M96.1 ; Unspecified abnormalities of gait and mobility R26.9 ; Doc-Danlos syndrome, 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 and superintendent terminal (current) use of opiate analgesic Z79.891 [facility] [place] [address] [place] [address] 01/15/2025 Fernando Soto Other cervical disc degeneration, unspecified cervical region M50.30 ; Chronic pain syndrome G89.4 ; Other spondylosis with radiculopathy, cervical region M47.22 ; Degeneration of intervertebral disc of lumbar region with discogenic back pain M51.360 ; Other spondylosis with radiculopathy, lumbosacral region M47.27 ; Postlaminectomy syndrome, not elsewhere classified M96.1 ; Doc-Danlos syndrome, 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 ; Unspecified abnormalities of gait and mobility R26.9 and superintendent terminal (current) use of opiate analgesic Z79.891 [facility] [address] [place] [address] 02/17/2025 Abodunrin Badejo Dysphagia R13.10 ; Bezoar entering into or through a natural orifice, initial encounter W44.F1XA ; 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 ; 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 and Chronic pain syndrome G89.4 [facility] [place] [address] [place] [address] 03/04/2025 Mathew Babin Lumbar radiculopathy M54.16 ; Lumbar stenosis with neurogenic claudication M48.062 ; Spondylolisthesis, lumbar region M43.16 ; Lumbar foraminal stenosis M48.061 ; Lumbar spondylosis M47.816 ; Other chronic pain G89.29 ; S/P lumbar spinal fusion Z98.1 and 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 [facility] [place] [address] [place] [phone] 03/12/2025 Fernando Soto Other cervical disc degeneration, unspecified cervical region M50.30 ; Chronic pain syndrome G89.4 ; Other spondylosis with radiculopathy, cervical region M47.22 ; Degeneration of intervertebral disc of lumbar region with discogenic back pain M51.360 ; Other spondylosis with radiculopathy, lumbosacral region M47.27 ; Postlaminectomy syndrome, not elsewhere classified M96.1 ; Doc-Danlos syndrome, 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 ; Unspecified abnormalities of gait and mobility R26.9 and superintendent terminal (current) use of opiate analgesic Z79.891 [facility] [place] [address] [place] [address] 04/11/2025 Mathew Babin Lumbar radiculopathy M54.16 ; Spondylolisthesis, lumbar region M43.16 ; Lumbar foraminal stenosis M48.061 ; Lumbar spondylosis M47.816 ; Other chronic pain G89.29 ; S/P lumbar spinal fusion Z98.1 and 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 [facility] [address] [place] [address] 05/01/2025 Estrelladavid Chaudhari Gastroparesis K31.84 ; Epigastric pain R10.13 ; Nausea and vomiting in adult R11.2 ; Dysphagia R13.10 ; Globus sensation F45.8 and Bezoar entering into or through a natural orifice, subsequent encounter [id number].F1XD [facility] [address] [place] [address] 05/01/2025 Fernando Soto Lumbar radiculopathy M54.16 [facility] [place] [address] [place] [phone] 05/21/2025 Fernando Soto Other cervical disc degeneration, unspecified cervical region M50.30 ; Chronic pain syndrome G89.4 ; Other spondylosis with radiculopathy, cervical region M47.22 ; Degeneration of intervertebral disc of lumbar region with discogenic back pain M51.360 ; Other spondylosis with radiculopathy, lumbosacral region M47.27 ; Postlaminectomy syndrome, not elsewhere classified M96.1 ; Doc-Danlos syndrome, 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 ; Unspecified abnormalities of gait and mobility R26.9 and nursing home (current) use of opiate analgesic Z79.891 [facility] [address] [place] [address] 05/29/2025 Loy Sandovalard 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 [facility] [address] [place] [address] 06/10/2025 Estrella Chaudhari Bezoar entering into or through a natural orifice, subsequent encounter [id number].F1XD ; 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 ; Fecal incontinence R15.9 ; Nausea & vomiting R11.2 ; Loss of appetite R63.0 ; Unintentional weight loss R63.4 and Blood pressure check Z01.30 [facility] [address] [place] [address] 06/30/2025 Russ Zendejassarthak S/P angioplasty with stent Z95.820 ; 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 and Peripheral vascular disease I73.9 [facility] 0 0 09/14/2024 Provider Migration [facility] 0 0 09/15/2024 Provider Migration [facility] [address] [place] [address] 06/25/2025 Estrella Chaudhari [facility] [address] [place] [address] 11/07/2024 Fernando Soto [facility] [address] [place] [address] 12/02/2024 Jossue Giles [facility] [address] [place] [address] 12/03/2024 Loy Barrow [facility] [place] [address] [place] [phone] 01/15/2025 Fernando Soto [facility] [address] [place] [address] 03/06/2025 Abodunrin Badejo Gastroparesis K31.84 [facility] [address] [place] [address] 03/13/2025 Abodunrin Badejo Gastroparesis K31.84 [facility] [address] [place] [address] 04/07/2025 Fernando Soto Chronic pain syndrom e G89.4 [facility] [place] [address] [place] [address] 04/16/2025 Mathew Babin [facility] [address] [place] [address] 04/23/2025 Fernando Soto Lumbar radiculopathy M54.16 [facility] [address] [place] [address] 05/04/2025 Estrella Chaudhari [facility] [address] [place] [address] 05/29/2025 Loy Barrow Doc-Danlos diseas e Q79.60 ; Gastroparesis K31.84 ; 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 Symptoms may be compounded by the fact that she has a bezoar in her stomach. We discussed the option of celiac artery stent placement however I would like her to see the general surgeon regarding her bezoar before considering any intervention. She will see me back in about 3 to 6 weeks 11/07/2024 Chronic pain syndrome (ICD-10 - G89.4) I had a nice discussion with the patient today regarding her chronic pain complaints. She is doing reasonably well on her current medication regimen and does not feel the need for any more interventional procedures at the moment. She has been having a lot of stomach issues and has been seeing GI. 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 She also seen a vascular surgeon. She feels that no one knows what she should do with it as she keeps getting sent back to the previous surgeon. 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 She states she sometimes has trouble sleeping due to muscle spasms and pain. She had previously had a prescription of tizanidine [address] Hwang and states that seem to help. I did agree to take this over for her today. She denies any other changes since we last seen her any untoward side effects of the medication. She will return to clinic in 2 months to monitor for treatment effectiveness and compliance as well as for biannual appointment with Dr. Soto. 11/07/2024 Other cervical disc degeneration, unspecified cervical region (ICD-10 - M50.30) 01/15/2025 Other cervical disc degeneration, unspecified cervical region (ICD-10 - M50.30) 03/04/2025 Lumbar radiculopathy (ICD-10 - M54.16) 03/04/2025 Lumbar stenosis with neurogenic claudication (ICD-10 - M48.062) 03/06/2025 Gastroparesis (ICD-10 - K31.84) 03/12/2025 Other cervical disc degeneration, unspecified cervical region (ICD-10 - M50.30) 03/13/2025 Gastroparesis (ICD-10 - K31.84) 02/17/2025 Dysphagia (ICD-10 - R13.10) 02/17/2025 Bezoar entering into or through a natural orifice, initial encounter (ICD-10 - W44.F1XA) 04/11/2025 Lumbar radiculopathy (ICD-10 - M54.16) MRI lumbar spine -12/17/2023 -L4-5 anterior versus lateral lumbar interbody fusion with posterior spinal instrumentation. There is multilevel severe disc degeneration throughout the lumbar spine. At L5-S1, there is slight anterolisthesis of L5 on S1 at L5-S1, there is bilateral lateral recess narrowing. Additionally, there is bilateral foraminal stenosis at L5-S1. CT lumbar spine -03/18/2025 -there appears to be solid fusion at L4-5. There is diffuse osteopenia/osteoporo sis. Lumbar radiographs -03/18/2025 -in flexion, there is approximately 3 mm retrolisthesis of L3 on L4. There is also approximately 2 mm retrolisthesis of L2 on L3. In extension, there is a normal anatomic alignment without listhesis. This indicates approximately 3 mm subluxation at L3-4 and approximately 2 mm subluxation at L2-3 on dynamic imaging. After discussion with the patient, she presents due to chronic and progressively worsening low back pain acutely worsened after a fall in March 2024. She has complaints of spasms in the lower extremities predominantly after laying down to sleep. She does have complaints of bilateral L5 radicular symptoms over the lateral calf/distal aspects of the L5 distribution. She also has some symptoms consistent with neurogenic claudication with worsening of back pain and lower extremity pain/weakness after standing or walking for short periods alleviated by change of position. She has previously undergone multiple lumbar surgeries starting with laminectomy followed by eventual LLIF with part fusion with initial surgery in 2019 and her last lumbar surgery in 2020. She reports improvement in her pain with leaning forward and sitting down. MRI of the lumbar spine shows previous L4-5 interbody and posterior spinal instrumentation. There is degenerative spondylolisthesis at L5-S1. There is adjacent segment disease at L3-4 where there is severe central canal stenosis and bilateral facet hypertrophy. At L5-S1, there is also bilateral foraminal stenosis and lateral recess stenosis. CT of the lumbar spine shows solid fusion at L4-5. There is adjacent segment disease at L3-4 where there is approximately 3 mm subluxation on dynamic imaging. She is likely suffering from symptoms from dynamic mobility with compression of the stenotic level at L3-4 due to adjacent segment disease. 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 She returns to clinic after obtaining a CT of the lumbar spine and lumbar radiographs. She currently takes meloxicam, tizanidine, and gabapentin for her symptoms. She reports benefit from gabapentin. However, she reports needing to take an additional dose in the middle of the night. We discussed trialing Lyrica in place of gabapentin for her nightly symptoms. Lyrica has been associated with fewer adverse effects with cognitive decline compared to gabapentin. We will trial this prescription. We have previously discussed nonsurgical management with physical therapy and spinal injections with pain management. She has undergone physical therapy with worsening of symptoms. She would likely benefit from an epidural steroid at L3-4. We will provide this referral. She sees Dr. Soto with pain management. She is understandably opposed to surgical intervention unless absolutely necessary. However, we briefly discussed possible surgical intervention if that should become necessary with extension of fusion which would require screws with cement augmentation. We also discussed interspinous spacer device such as Coflex. At this time, and her symptoms are tolerable/manageable . She will follow-up with us after obtaining an epidural steroid injection with pain management and trialing Lyrica. 04/11/2025 Spondylolisthesis, lumbar region (ICD-10 - M43.16) See above 04/23/2025 Lumbar radiculopathy (ICD-10 - M54.16) 05/01/2025 Lumbar radiculopathy (ICD-10 - M54.16) 05/01/2025 Gastroparesis (ICD-10 - K31.84) 05/01/2025 Epigastric pain (ICD-10 - R10.13) 05/21/2025 Other cervical disc degeneration, unspecified cervical region (ICD-10 - M50.30) 05/30/2025 Bezoar entering into or through a natural orifice, subsequent encounter (ICD-10 - W44.F1XD) 06/10/2025 Bezoar entering into or through a natural orifice, subsequent encounter (ICD-10 - W44.F1XD) CT of the abdomen and pelvis from 05/15/2025 in [place] show intrahepatic and extrahepatic biliary dilation may be on the basis of aging and related to the cholecystectomy. No mass or abnormality is noted at the pancreatic head. 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 Limited evaluation of the kidneys. No obstruction is evident. Constipation is noted. There is no mention of food bezoar with this CT. Patient is requesting referral to surgery for consideration of food bezoar in the small intestine removal. She is requesting to use a surgeon Dr. Garcia suggests. Discuss case with Dr. Garcia and refer to surgery. 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 Her celiac artery is not well-visualized due to thickness of the slices of the CT scan. What I can see of the celiac artery is that there does not appear to be any residual compression of the celiac artery. The origin of the celiac artery is not well-visualized and there is a very bulky calcified plaque shelf near where the celiac artery origin should be. It is difficult to tell whether there is a stenosis or not. The superior mesenteric artery is widely patent and has calcium adjacent. Aorta is widely patent otherwise. Based on her recurrent symptoms and the CT scan I have recommended that we perform a diagnostic angiogram of her celiac artery to confirm wide patency or stenosis. If we can confirm that there is high-grade stenosis I will consider treating the artery likely with shockwave angioplasty and stent placement. The patient understands the benefits and risks of the procedure including the risk of bleeding, infection, arterial injury/thrombosis, and renal failure. The patient gives consent for surgery. 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 Barrow. Patient reports resolution of her symptoms. Patient will continue ASA 81 mg and atorvastatin daily.Will follow-up in 3 months with abdominal ultrasound of her celiac artery stent. Patient understands that if she begins to have nausea, abdominal pain, postprandial abdominal pain to call our clinic immediately. Continue to follow-up with all specialists and PCP and continue all prescribed medications. 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 Unfortunately, she does not feel like the epidural she discussed with Dr. Babin and we completed provided much benefit at all. She's currently struggling with a rooster olivera injury, where she got too close to a nest and a rooster attacked her leg. She has had a few rounds of antibiotics for this. It is still quite swollen. For now, we will hold off on any changes, and hopefully, this will heal up in the near future. We will continue her medications unchanged and see her back in about 2 months. 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 She saw Dr. Babin recently and he agreed that the problems are likely cephalad and caudal to her fusion. He did order a CT scan so we will look at that afterwards and we will just wait to hear from them as far as doing any kind of injection. We will continue her medications unchanged for now and wait to hear from them or see her in about 2 months. 03/04/2025 Spondylolisthesis, lumbar region (ICD-10 - M43.16) 01/15/2025 Chronic pain syndrome (ICD-10 - G89.4) I had a nice visit with the patient today regarding her chronic pain issues. She is pretty convinced she needs to pursue a surgical opinion and she had wanted to see Dr. Babin. This is more than reasonable so we will get that referral placed. We will continue her medications unchanged for the next couple of months and see her back at that point. 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) 05/29/2025 Nausea and vomiting in adult (ICD-10 - R11.2) 06/10/2025 Loss of appetite (ICD-10 - R63.0) 05/21/2025 Degeneration of intervertebral disc of lumbar region with discogenic back pain (ICD-10 - M51.360) 05/01/2025 Globus sensation (ICD-10 - F45.8) 04/11/2025 Other chronic pain (ICD-10 - G89.29) See above 02/17/2025 Chronic pain syndrome (ICD-10 - G89.4) 03/12/2025 Degeneration of intervertebral disc of lumbar region with discogenic back pain (ICD-10 - M51.360) 03/04/2025 Lumbar spondylosis (ICD-10 - M47.816) 01/15/2025 Other spondylosis with radiculopathy, lumbosacral region (ICD-10 - M47.27) 11/07/2024 Other spondylosis with radiculopathy, lumbosacral region (ICD-10 - M47.27) 11/07/2024 Postlaminectomy syndrome, not elsewhere classified (ICD-10 - M96.1) 01/15/2025 Postlaminectomy syndrome, not elsewhere classified (ICD-10 - M96.1) 03/04/2025 Other chronic pain (ICD-10 - G89.29) 03/12/2025 Other spondylosis with radiculopathy, lumbosacral region (ICD-10 - M47.27) 04/11/2025 S/P lumbar spinal fusion (ICD-10 - Z98.1) See above 05/01/2025 Bezoar entering into or through a natural orifice, subsequent encounter (ICD-10 - W44.F1XD) Patient has a history of bezoar no recent imaging. The patient is requesting referral to surgery for bezoar removal. Will discuss case with Dr. Garcia. Recommendations per him. Contact patient with recommended plan of care. 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 No active management at this time. 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) 03/12/2025 Doc-Danlos syndrome, unspecified (ICD-10 - Q79.60) 05/21/2025 Doc-Danlos syndrome, unspecified (ICD-10 - Q79.60) 05/21/2025 Unspecified abnormalities of gait and mobility (ICD-10 - R26.9) 03/12/2025 Unspecified abnormalities of gait and mobility (ICD-10 - R26.9) 01/15/2025 nursing home (current) use of opiate analgesic (ICD-10 - Z79.891) 11/07/2024 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 We will monitor with in-office testing (rapid testing) today and review the results prior to dispensing prescription. All positive results will be sent for quantitative analysis to ensure accuracy and quantify amounts. Any expected positive results that return negative will also be sent for quantitative analysis. Any questionable read or any medication we cannot test for in the office confidently will be sent for quantitative analysis, as well. Patient has been made aware of this policy and agrees to abide by our urine testing policy.. 05/21/2025 nursing home (current) use of opiate analgesic (ICD-10 - Z79.891) 01/15/2025 Other Penny, Tomer Viramontes, am scribing for Dr. Fernando Soto. I, Dr. Fernando Soto, personally performed the services described in this documentation, as scribed by Tomer Viramontes, and it is both accurate and complete. 02/17/2025 Other The report of E GD performed in [place], [place] in June 2024 was reviewed and noted. 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 Elderly female with recurrent dysphagia for solids and liquids. She also has gastric bezoar. Schedule for upper endoscopy. Endoscopic intervention as indicated. The patient may require surgical consideration if the gastric bezoar is not amenable to endoscopic removal. The above plan was discussed with the patient who expressed understanding. 03/04/2025 Other MRI lumbar spine -12/17/2023 -L4-5 anterior versus lateral lumbar interbody fusion with posterior spinal instrumentation. There is multilevel severe disc degeneration throughout the lumbar spine. At L5-S1, there is slight anterolisthesis of L5 on S1 at L5-S1, there is bilateral lateral recess narrowing. Additionally, there is bilateral foraminal stenosis at L5-S1. After discussion with the patient, she presents due to chronic and progressively worsening low back pain acutely worsened after a fall in March 2024. She has complaints of spasms in the lower extremities predominantly after laying down to sleep. She does have complaints of bilateral L5 radicular symptoms over the lateral calf/distal aspects of the L5 distribution. She also has some symptoms consistent with neurogenic claudication with worsening of back pain and lower extremity pain/weakness after standing or walking for short periods alleviated by change of position. She has previously undergone multiple lumbar surgeries starting with laminectomy followed by eventual LLIF with part fusion with initial surgery in 2019 and her last lumbar surgery in 2020. She reports improvement in her pain with leaning forward and sitting down. MRI of the lumbar spine shows previous L4-5 interbody and posterior spinal instrumentation. There is degenerative spondylolisthesis at L5-S1. There is adjacent segment disease at L3-4 where there is severe central canal stenosis and bilateral facet hypertrophy. At L5-S1, there is also bilateral foraminal stenosis and lateral recess stenosis. 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 She appears to likely be suffering primarily from acutely worsened low back pain over the past year with symptoms of neurogenic claudication. She also does have bilateral L5 radicular complaints. We discussed further evaluation with a CT of the lumbar spine and lumbar radiographs including flexion/extension films. She currently takes meloxicam, tizanidine, and gabapentin for her symptoms. We briefly discussed nonsurgical management with physical therapy and spinal injections with pain management. Pending further evaluation with CT lumbar spine and lumbar radiographs, she may benefit from L3-4 epidural steroid injection versus L5-S1 epidural steroid injection versus facet injection/ablations. She is understandably fairly opposed to surgical intervention unless absolutely necessary. She will follow-up with us after obtaining a CT of the lumbar spine and lumbar radiographs for further evaluation and treatment discussion. I spent 45 minutes in the care of this patient including approximately 30 minutes of [id number] time for interview, examination, and discussion/counselin g, as well as approximately 15 minutes in documentation and imaging review and documentation preparation. 03/12/2025 Other I, Tomer Viramontes, am scribing for Dr. Fernando Soto. I, Dr. Fernando Soto, personally performed the services described in this documentation, as scribed by Tomer Viramontes, and it is both accurate and complete. 04/11/2025 Other I spent 40 minutes in the care of this patient including approximately 30 minutes of krrm-af-[id number] time for interview, examination, and discussion/counselin g as well as approximately 10 minutes in documentation and imaging review and documentation preparation. 05/21/2025 Other I, SAW Gomes, am scribing for Dr. Fernando Soto. I, Dr. Fernando Soto, personally performed the services described in this documentation, as scribed by SAW Gomes, and it is both accurate and complete. Plan Of Treatment Pending Test Test Name Order Date Basic Metabolic Panel (BMP) 77661 2024 Blood Urea Nitrogen (BUN) 97751 05/01/20 25 Creatinine (B) 94292 05/01/2025 CBC Reflex Man Diff 03350, [address] Abdomen w/ Contrast-94192 05/01/2025 NM Gastric Emptying Study-20231 03/06/20 25 NM Gastric Emptying Study-59692 03/13/20 25 XR Outside CD 03/18/2025 zzzCT Outside CD 03/18/2025 zzzMRI Outside CD 05/17/2024 EGD, Upper GI Diagnostic-85231 5 Future Test Test Name Order Date CT L-Spine w/o Contrast incl Recon-78110 03/05/2025 Lumbosacral Spine Comp w/ Bending-23288 03/05/2025 Next Appt Details Provider Name:Christin dangelo, 07/24/2025 12:40:00 PM, [address] [place], [address], Provider Name:Ian barahona, 10/02/2025 10:00:00 AM, [address] [place] [address] [address], [place], [address], Provider Name:Zulay brownlee, 10/02/2025 10:30:00 AM, [address] [place] [address] [address], [place], [address], Insurance Providers Payer Name Payer Address Payer Phone Subscriber Number Group Number Insured Name Patient Relationship to Insured Coverage Start Date Coverage End Date [place] [address] [place] [phone] [id number] BRITANY ORDONEZ Self - patient is the insured [employer] [address] [address] [place] [address] [phone] [id number] BRITANY ORDONEZ Self - patient is the insured Medical (General) History Medical History History ICD Code Bezoar esophageal stricture celiac artery compression measles, chicken pox, whooping cough, sc antwon fever arthritis anemia migraines hernia blood transfusions back trouble hypertension hemorrhoids asthma cataracts deep vein thrombosis myocardial infarction mrsa doc-danlos syndrome stroke Surgical History Surgery Date(Month/Year) [place]oscopy-[place], [place] 1979 EGD-esophageal stricture, gastric bezoar -dilation 10-30-[address] Alison Abreu 01/19/[address] Eason 04/20/2023 Repair severe spondylolisthe sis at L4-L5 with peep cage, rods and graft material, Dr Nhan Erwin 04/07/[address] Johnston 020 laminectomy L-5 S-1 Dr Matthew Astudillo remove a piece of material t hat broke away and became lodged on the spinal cord. It was a plug used to patch a dura leak that occurred during 03/16/20 surgery 03/26/2020 laminectomy L4-L5 Dr Matthew Astudillo 03/16 bilateral cataract surgery 1992 Bowel obstruction caused by severe adhes ions 11/22/[address] Carlos (2) Cornell rogers (2) Tripod fracture left side of face with sylastic implant to hold up left eye. several minor surgeries followed the following year 06/03/1982 Bilateral carpal tunnel releases, Dr Morris 1979 Nerve resection left foot Dr Jarad hahn 1977 C4-5 and C5-6 fusions using bone graft (C4-5 failed to fuse) Dr Jarad Smith 1976 3-4 abdominal surgeries for ovarian cyst s and endometriosis 8360-9215 Bowel Obstruction( bowel fel l through a loop of adhesions) Dr Nava june [address] Franks 02/18/1955 Hospitalization History Reason Date(Month/Year) See surgical history
--- OUTSIDE RECORDS SUMMARY | 2025-07-21 20:11 | XMS_ITS | Patient Health Record ---
Author Organization [facility] Address [address] [place], [place] [address] Care Team Providers Care Welding Equipment Sales Representative Name Role Phone Sharri CRUZ, Mykel Unavailable [phone] Halley العلي MD Unavailable Unavailable Judit Ferreira Unavailable [phone] Reason For Referral Reason Other chronic pain; Doc Danlos syndrome, unspecified Diagnosis 1 Other chronic pain ( G89.29) Diagnosis 2 Doc-Danlos syndro me, unspecified (Q79.60) Referring Provider First Name Halley Referring Provider Last Name Zohra Referring Provider Speciality Family Med icine Referred Organization [facility] Referred Provider Mykel Harrell Referred Address [address] [facility],[place], [place],[address], Referred Provider Specialty Pain Managem ent General Notes Lana Nielsen 01:47:27 PM >Sent for insurance verification. Need SSN., Funmi Lozada 01/16/2025 04:30:38 PM >Active. No copay., Lana Nielsen 01/20/2025 10:00:41 AM >Left message to schedule. 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
--- OUTSIDE RECORDS SUMMARY | 2025-07-21 20:11 | XMS_ITS | Patient Health Record ---
Author Organization [facility] Address [address] [facility] [address] [place] [address] Care Team Providers Care Buffer Copper Name Role Phone CATHIE BENDER Primary Care Provider Carol Chawla Unavailable [phone] Allergies Allergen (clinical drug ingredient) Drug/Non Drug Allergy documented on EMR Reaction Allergy Type Onset Date Status codeine Codeine Sulfate Unknown Drug Allergy A ctive vancomycin Vancomycin HCl Unknown Drug Allergy A ctive Reason For Referral No Information Medications Medication SIG (Take, Route, Fr equency, Duration) Notes Start Date End Date Status Gabapentin Active Carisoprodol Active MiraLax Active Isosorbide Dinitrate Active oxyCODONE HCl Active Dilitiazem Active Azelastine HCl Activ e Aspirin Active traMADol HCl Active guanFACINE HCl Activ e Vitamin D3 Active Meloxicam Active Vitamin C Active Loratadine Active Vitamin B12 Active Omeprazole Active Quercetin Active Lisinopril Active Atorvastatin Calcium Active Social History Tobacco Use: Social History Observation Description Date Details (start date - stop date) Former Smoker NA - NA Do Not Use - Tobacco Question Answer Notes Are you a: Former Smoker Smoked for 33yrs , Quit in01/01/90 Problems Problem Type SNOMED Code ICD Code Onset Dates Problem Status W/U Status Risk Notes Problem Impacted cerumen (93777061) Impacted cerumen (380.4) Active confirmed Problem Hearing loss (40394638) Unspecified hearing loss (389.9) Active confirmed Problem Bilateral tinnitus (2407746572394 ) 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) Active confirmed Problem Seasonal allergy (890802504) Seasonal allergies (J30.2) Active confirmed Problem Allergic rhinitis (51228745) Chronic allergic rhinitis (J30.9) Active confirmed Plan Of Treatment Pending Test Test Name Order Date 47945 Tympanometry (Impedance Testing) 0 01/02/2013 89418 Comprehensive Audiometry Threshold Eval & Speech Recognition 01/02/2013 02480 Removal Impacted Cerumen [address] Sinuses ([employer] Fusion Liyah col) 05/25/2023 Insurance Providers Payer Name Payer Address Payer Phone Subscriber Number Group Number Insured Name Patient Relationship to Insured Coverage Start Date Coverage End Date MEDICARE [address] [place] [phone] [id number] Aga Lennon Self - patient is the insured [facility] [address] [address] [place] [address] [id number] [employer]ANF Aga Lennon Self - patient is the insured Medical (General) History Medical History History ICD Code Elhers-danlos Syndrome DVT heart attack or cardiac stents HTN migraine headaches Surgical History Surgery Date(Month/Year) appendectomy 02/18/55 bowel obstruction -11/22/92 abdominal surgeries for ovarian cyst & e ndometriosis 1661-1664 C4 C5/C5-C6 fusions bone graft 1976 bilateral carpal tunnel 1980 tripod fracture 06/03/82 sinus surgery 1980 both eyes cataract 1992 laminectomy 03/16/20-07/15/20 spinal cord removed piece of material 03/26/20 total knee replacement 08/27/20 repair severe spondylolisthesis L4 L5 wi th peep cage 04/07/21 spine surgery
--- OUTSIDE RECORDS SUMMARY | 2025-07-21 20:11 | XMS_ITS | Clinical Summary ---
Author Organization [facility] Address [address] [place] [address] Phone Care Team Providers Care Envelope Patternmaker Name Role Phone Unavailable Primary Care Provider Unavailabl e Social History Tobacco Use Types Packs/Day Years Used Date Smoking Tobacco: Never Assessed Comments Unknown Sex and Gender Information Value Date Recorded Sex Assigned at Not on file Legal Sex Female 10:37 AM CDT Gender Identity Not on file Sexual Orientation Not on file Plan of Treatment Health Maintenance Due Date Last Done Comments DTAP/TDAP/TD VACCINES (1 - Tdap) 1959 PNEUMOCOCCAL VACCINE 50+ YEARS (1 of 1 - PCV) 09/10/19 90 ZOSTER VACCINE (1 of 2) 1990 OSTEOPOROSIS SCREENING 2005 RSV VACCINE (60+ or ) (1 - 1-dose 75+ series) 2015 INFLUENZA VACCINE (#1) 2025
--- OUTSIDE RECORDS SUMMARY | 2025-07-21 20:11 | XMS_ITS | Patient Health Record ---
Author Organization [facility] Address [address] [facility] [address] [place], [place] [address] Care Team Providers Care Api Architect Name Role Phone Anthony Espino Reason For Referral No Information Medications Medication SIG (Take, Route, Frequency, Duration) Notes Start Date End Date Status Sucralfate 1 GM Tablet Oral 04/06/2022 Active Omeprazole 40 MG Capsule Delayed Release Oral 04/06/2022 Active oxyCODONE HCl 10 MG Tablet Oral 04/06/2022 Active Atorvastatin Calcium 20 MG Tablet Oral 04/06/2022 Active oxyCODONE-Acetaminophen 10-325 MG Tablet Oral 04/06/2022 Active Azelastine HCl 137 MCG/SPRAY Solution Nasal 04/06/2022 Active Lisinopril-hydroCHLOROthiaz milady 20-12.5 MG Tablet Oral 04/06/2022 Active Problems Problem Type SNOMED Code ICD Code Onset Dates Problem Status W/U Status Risk Notes Problem Localized, primary osteoarthritis of the ankle and/or foot (137074184) Primary osteoarthriti s, right ankle and foot (M19.071) 2 Active confirmed Problem Localized, primary osteoarthritis of the ankle and/or foot (189484377) Primary osteoarthriti s, left ankle and foot (M19.072) 2 Active confirmed Problem Acquired hallux valgus (85287555) Hallux valgus (acquired), right foot (M20.11) 2 Active confirmed Problem Acquired hallux valgus (43634364) Hallux valgus (acquired), left foot (M20.12) 2 Active confirmed Problem Acquired hallux rigidus (1195138) Hallux rigidus, right foot (M20.21) 2 Active confirmed Problem Acquired hallux rigidus (2208051) Hallux rigidus, left foot (M20.22) 2 Active confirmed Problem Acquired hammer toe of right foot (0893562203014425) Other hammer toe(s) (acquired), right foot (M20.41) 2 Active confirmed Problem Acquired hammer toe of left foot (7413607111455693) Other hammer toe(s) (acquired), left foot (M20.42) 2 Active confirmed Problem Ganglion cyst of left foot (disorder) (8589937124427571) Ganglion, left ankle and foot (M67.472) 2 Active confirmed Problem Other specified disorders of bone, ankle and foot (M89.8X7) 2 Active confirmed Plan Of Treatment No Information Insurance Providers Payer Name Payer Address Payer Phone Subscriber Number Group Number Insured Name Patient Relationship to Insured Coverage Start Date Coverage End Date Medicare [address] [place], [place] [id number] BRITANY ORDONEZ Self - patient is the insured supplement [address] [address] [place] [id number] BRITANY ORDONEZ Self - patient is the insured
--- OUTSIDE RECORDS SUMMARY | 2025-07-21 20:11 | XMS_ITS | Patient Health Record ---
Author Organization [facility], Address [address] [place] [address] Care Team Providers Care Admission Specialist Name Role Phone Nano Moncada Primary Care Provider Unavailable Shabbir Byrd Unavailable [phone] Allergies Allergen (clinical drug ingredient) Drug/Non Drug Allergy documented on EMR Reaction Allergy Type Onset Date Status vancomycin Vancomycin (uncoded) Unknown Allergy 05/09/20 19 Active Reason For Referral No Information Medications Medication SIG (Take, Route, Frequency, Duration) Notes Start Date End Date Status Benadryl Active Sudafed 12 Hour (pseudoephedrine hcl) 06/30/2014 Active meloxcan 06/30/2014 Active Ultram (tramadol) 06/30/2014 A ctive carisoprodhol 06/30/2014 Activ e Social History Tobacco Use: Social History Observation Description Date Details (start date - stop date) Former Smoker NA - NA Tobacco Use/Smoking Question Answer Notes Are you a: former smoker Problems Problem Type SNOMED Code ICD Code Onset Dates Problem Status W/U Status Risk Notes Problem Chronic sinusitis (77513085) Unspecified sinusitis (chronic) (J32.9) Active confirmed Problem Allergic rhinitis (28686041) Allergic rhinitis, unspecified seasonality, unspecified trigger (J30.9) Active confirmed Problem Impacted cerumen (27116797) H61.23-Cerumen Impaction, bilateral (H61.23) 9 Active confirmed Problem Sensorineural hearing loss, bilateral (813574945) H90.3-Hearing loss, sensorineural, bilateral (H90.3) 9 Active confirmed Problem Chronic maxillary sinusitis (50814064) J32.0-Maxillary sinusitis, chronic (J32.0) 9 Active confirmed Problem Headache (21972415) L33-Pojfqadk (R51) 7 Active confirmed Problem Otalgia of right ear (finding) (9621297758) H92.01-Otalgia, right ear (H92.01) 9 Active confirmed Problem Posterior rhinorrhea (24759762) 784.91-Postnasa l Drip (784.91) 5 Active confirmed Problem Impacted cerumen (14266804) H61.21-Cerumen Impaction, right ear (H61.21) 7 Active confirmed Problem Polyp of nasal sinus (disorder) (78629565) J33.8-Sinus Polyp or Mucocele (J33.8) 6 Active confirmed Problem Conductive hearing loss, bilateral (294575362) H90.0-Hearing loss, conductive, bilateral (H90.0) 9 Active confirmed Problem Posterior rhinorrhea (90045533) R09.82-Postnasa l drip (R09.82) 9 Active confirmed Problem Headache (29490801) 784.0-Headache (784.0) 5 Active confirmed Problem Chronic ethmoidal sinusitis (30457124) J32.2-Ethmoidal Sinusitis, chronic (J32.2) 9 Active confirmed Problem Chronic rhinitis (70238568) J31.0-Chronic rhinitis (J31.0) 9 Active confirmed Problem Chronic sinusitis (82333650) 473.9-Sinusitis chronic (473.9) 5 Active confirmed Problem Chronic maxillary sinusitis (04566866) J32.0-Chronic maxillary sinusitis (J32.0) 7 Active confirmed Plan Of Treatment No Information Insurance Providers Payer Name Payer Address Payer Phone Subscriber Number Group Number Insured Name Patient Relationship to Insured Coverage Start Date Coverage End Date Medicare Part B [employer] [address] [place] [phone] [id number] Aga Lennon Self - patient is the insured [facility] Life Insurance [address] [address] [place] [address] [phone] [id number] Aga Lennon Self - patient is the insured Medical (General) History Medical History History ICD Code Bleeding disorder Doc Danlos Syndrome asthma Doc danlos syndrome classical varient Surgical History Surgery Date(Month/Year) Back fusion Bowel obstruction Joint Rhinoplasty Septoplasty Sinus surgery x 4 Tripod
--- OUTSIDE RECORDS SUMMARY | 2025-07-21 20:11 | XMS_ITS | Patient Health Record ---
Author Organization [facility] Address [address] [place] [address] Care Team Providers Care Assembly Cleaner Name Role Phone Nano Velásquez Primary Care Provider Un available Jas Rene Unavailable [phone] Allergies Allergen (clinical drug ingredient) Drug/Non Drug Allergy documented on EMR Reaction Allergy Type Onset Date Status vancomycin Vancomycin HCl Rash, Itching Drug Allergy Active Reason For Referral No Information Medications Medication SIG (Take, Route, Frequency, Duration) Notes Start Date End Date Status traMADol HCl 50 MG Tablet (Schedule IV D rug) TAKE 2 TABLETS BY MOUTH 4 TIMES A DAY TAKE NEEDED Oral; Duration: 30 Active Sucralfate 1 GM Tablet TAKE 1 TABLET BY MOUTH EVERY 8 HOURS NEEDED Oral; Duration: 90 Active Meloxicam Active oxyCODONE-Acetaminophen 10-325 MG Tablet (Schedule II Drug) TAKE 1 TABLET BY MOUTH EVERY 6 HOURS NEEDED Oral; Duration: 30 Active Soma Not-Taking Percocet Not-Taking Carisoprodol 350 MG Tablet (Schedule IV Drug) TAKE 1 TABLET BY MOUTH THREE TIMES A DAY NEEDED Oral; Duration: 30 Active Ultram Not-Taking Tobramycin Sulfate N ot-Taking Gas-X Not-Taking Budesonide Not-Takin g Atorvastatin Calcium 20 MG Tablet 1 tablet Orally Once a day; Duration: 30 day(s) Active Social History Social History Drugs/Alcohol: Social Info Question Answer Notes Alcohol Screen Did you have a drink containing alcohol in the past year? No Points 0 Interpretation Negative Tobacco Use: Social Info Question Answer Notes Tobacco user Smoking status Former smoker quit in 1989 Additional Details Category Social Info Options Details Alcohol intake Alcohol Intake Does Not Dr ink Problems Problem Type SNOMED Code ICD Code Onset Dates Problem Status W/U Status Risk Notes Problem Doc-Danlos syndrome (513046963) Doc-Danlos syndrome (756.83) Active confirmed Problem Generalized abdominal pain (371784532) Abdominal pain, generalized (789.07) Active confirmed Problem History of circulatory system disease (454007632) Personal history of other diseases of the circulatory system (Z86.79) Active confirmed Problem Epigastric pain (04319969) Epigastric pain (R10.13) Active confirmed Problem Essential hypertension (34816171) Essential (primary) hypertension (I10) Active confirmed Problem Irreducible hernia of anterior abdominal wall (disorder) (628131702) Incarcerated ventral hernia (K43.6) Active confirmed Problem Doc-Danlos syndrome (127981987) 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) Active confirmed Plan Of Treatment No Information Insurance Providers Payer Name Payer Address Payer Phone Subscriber Number Group Number Insured Name Patient Relationship to Insured Coverage Start Date Coverage End Date Medicare Part B [address] [place] [address] [id number] Aga Lennon Self - patient is the insured [employer] [address] [place] [address] [id number] Plan F Aga Lennon Self - patient is the insured 4 Medical (General) History Medical History History ICD Code Anemia Arthritis Bleeding Problems Blood Transfusion Hypertension Doc-Danlos Syndrome CVA 2019 Hiatal hernia AAA Renal artery stenosis Surgical History Surgery Date(Month/Year) appendectomy bowel surgery ovarian cyst resection hysterectomy bowel resection left knee arthroscopy right knee arthroscopy Lumbar stenosis s/p L4-L5 decompression 04/07/21
[2025-07-21 20:53] VITALS: BP 143/61; PULSE 67; O2SAT 96
--- NOTE | 2025-07-21 21:36 | W.ED.WOUNDLC ---
HPI - Wound/Laceration General: Chief Complaint: Wound/Laceration Stated Complaint: Rt Arm Injury Time Seen by Provider: 07/21/25 20:36 History of Present Illness: 84-year-old female presents emergency room after a fall while she was feeding her dogs. She had mechanical ground-level fall and she got caught up on the dog's leash. She has some skin tears on the right forearm. She denies striking her head denies loss of consciousness. Unsure of last tetanus Related Data Home Medications ?Medication ?Instructions ?Recorded ?Confirmed loratadine 10 mg tablet (Allergy 10 mg PO DAILY 11/23/23 07/14/25 Relief (loratadine)) aspirin 81 mg tablet,delayed 81 mg PO DAILY 11/04/24 07/14/25 release multivitamin (Daily Multi-Vitamin 1 tab PO DAILY 05/12/25 07/14/25 tablet) pantoprazole 40 mg tablet,delayed 40 mg PO BID 05/12/25 07/14/25 release vit C 250 mg-vit E 90 mg-zinc 40 1 tab PO BID 05/12/25 07/14/25 mg-copper 1 [id number] capsule (PreserVision AREDS-2) diclofenac sodium 1 % topical gel 2 g topical QID 07/08/25 07/14/25 (Voltaren Arthritis Pain) Previous Rx's ?Medication ?Instructions ?Recorded bilateral AFO #1 ea 07/08/24 isosorbide mononitrate 60 mg 60 mg PO BID #180 tabs 08/30/24 tablet,extended release 24 hr nitroglycerin 0.4 mg sublingual 0.4 mg sublingual Q5M PRN chest 03/14/25 tablet pain #30 tabs atorvastatin 40 mg tablet See Rx Instructions .Route 05/15/25 .COMPLEX #30 tabs azelastine 137 mcg (0.1 %) nasal See Rx Instructions .Route 05/15/25 spray .COMPLEX #30 mL diltiazem HCl 360 mg capsule,24 360 mg PO QAM #90 caps 06/26/25 hr,extended release meloxicam 15 mg tablet See Rx Instructions .Route 07/01/25 .COMPLEX #30 tabs tizanidine 2 mg tablet 2 mg PO Q8H PRN muscle spasticity 07/01/25 #30 tabs Allergies Allergy/AdvReac Type Severity Reaction Status Date / Time vancomycin Allergy Intermediate Rash Verified 07/14/25 16:49 PFSH ED PFSH: Medical History History of obstruction of large intestine Hx of cataract Hypertension H/O deep venous thrombosis Doc-Danlos disease Surgical History Hx of sinus surgery History of back surgery laminectomy History of esophagogastroduodenoscopy (EGD) Hx of knee surgery right Hx of neck surgery Hx of carpal tunnel repair bilat Hx of colonoscopy 10+ years ago Hx laparoscopic cholecystectomy Family History Father Doc-Danlos syndrome Mother Alcohol dependence Social History Smoking and tobacco/nicotine status: never used tobacco/nicotine Alcohol intake: current Alcohol type: beer Substance/Drug Use: never Lives independently: Yes Household members: none Number of children: 4 Current occupational status: 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 Pets and animals: Yes Pets & animals: dog(s) Special kulwinder needs: No Agree to transfusion: Yes Physical Exam Const: COMMON NORMALS: no acute distress GENERAL APPEARANCE: cooperative and comfortable ORIENTATION/CONSCIOUSNESS: Yes awake, Yes oriented to person, Yes oriented to place and Yes oriented to time HENMT: COMMON NORMALS: normocephalic, atraumatic and hearing grossly normal bilaterally HEAD & SCALP: normocephalic and atraumatic Resp: COMMON NORMALS: normal respiratory effort, No retractions, No use of accessory muscles and clear to auscultation bilaterally AUSCULTATION: clear to auscultation bilaterally Cardio: COMMON NORMALS: regular rate, regular rhythm and No murmurs present (Cardio) RATE: regular rate RHYTHM: regular rhythm GI: COMMON NORMALS: Soft to palpation and No hepatosplenomegaly present AUSCULTATION: Yes normoactive bowel sounds PALPATION: Yes Soft to palpation, No Tenderness to palpation present (GI), No Guarding due to palpation present (GI) and Yes No hepatosplenomegaly present Extremity: OTHER: Right arm: Normal range of motion pronation supination across the elbow. Able to internal extra rotate at the shoulder no pain or discomfort with movement at the wrist. Skin tears on the lateral aspect of the right arm. Neuro: SENSORIUM/ORIENTATION: Yes oriented to person, Yes oriented to place and Yes oriented to time Skin: COMMON NORMALS: no rashes or lesions noted GENERAL SKIN EXAM: no rashes or lesions noted Course Vital Signs: Vital signs: Vital Signs Temperature 97.8 F 07/21/25 20:04 Pulse Rate 67 07/21/25 20:53 Respiratory Rate 16 07/21/25 20:04 Blood Pressure 143/61 07/21/25 20:53 Pulse Oximetry 96 07/21/25 20:53 Oxygen Delivery Me thod Room Air 07/21/25 20:53 MDM - Wound/Laceration Medical Decision Making Patient declines x-rays of the arm. Steri-Strips applied to the skin tears. Return if she has further problems or wishes to have the arm evaluated further. Tetanus was updated. Medical Records I reviewed the patient's medical records. No radiology studies performed this visit Discharge Plan Discharge Patient Disposition: Home Clinical Impression: Skin tear of right upper extremity Condition: Stable Prescriptions: No Action (DME) bilateral AFO See Rx Instructions .Route .MEDSUPPLY Qty: 1 0RF Rx Instructions: As directed to the shoarsh hollis tizanidine 2 mg tablet 2 mg PO Q8H PRN (Reason: muscle spasticity) Qty: 30 0RF meloxicam 15 mg tablet See Rx Instructions .ROUTE .COMPLEX Qty: 30 0RF Dose Instruction: TAKE ONE TABLET BY MOUTH DAILY Rx Instructions: TAKE ONE TABLET BY MOUTH DAILY diclofenac sodium [Voltaren Arthritis Pain] 1 % gel 2 g topical QID Rx Instructions: apply to single elbow, wrist or hand; for hand includes palm/fingers/back of hand loratadine [Allergy Relief (loratadine)] 10 mg tablet 10 mg PO DAILY nitroglycerin 0.4 mg tablet, sublingual 0.4 mg sublingual Q5M PRN (Reason: chest pain) Qty: 30 6RF Rx Instructions: do not exceed 3 doses per episode multivitamin [Daily Multi-Vitamin] Tablet 1 tab PO DAILY pantoprazole 40 mg tablet,delayed release (DR/EC) 40 mg PO BID PreserVision AREDS-2 250-90-40-1 mg capsule 1 tab PO BID isosorbide mononitrate 60 mg tablet extended release 24 hr 60 mg PO BID Qty: 180 3RF azelastine 137 mcg (0.1 %) spray,non-aerosol See Rx Instructions .ROUTE .COMPLEX Qty: 30 2RF Dose Instruction: instill TWO SPRAYS into each nostril TWICE DAILY Rx Instructions: instill TWO SPRAYS into each nostril TWICE DAILY atorvastatin 40 mg tablet See Rx Instructions .ROUTE .COMPLEX Qty: 30 2RF Dose Instruction: TAKE ONE TABLET BY MOUTH ONCE DAILY Rx Instructions: TAKE ONE TABLET BY MOUTH ONCE DAILY diltiazem HCl 360 mg capsule,extended release 24 hr 360 mg PO QAM Qty: 90 3RF aspirin [Aspir-81] 81 mg Tablet,Delayed Release (Dr/Ec) 81 mg PO DAILY Discharge Orders: Discharge ED (Routine); Ordered 07/21/25 Ordered By: Amado Cormier Referrals: Halley العلي MD [Primary Care Provider, Family Practice] Patient Instructions: Opioid Safety, Pain Management, Patient Portal & [facility]aley Instructions Activity Restrictions/Additional Instructions: Thank you for choosing [facility] for your healthcare needs today. It is very important that you follow up as instructed or that you return to the Emergency Department should you have concerns or if your condition changes or worsens in any way. Emergency department visits are focused on emergent conditions, in some cases you may require further evaluation on an outpatient basis. You were seen in the emergency room after a fall you had several skin tears in your elbow. After discussion we agreed to closed them with Steri-Strips rather than sutures. Leave the Steri-Strips in place until they fall off on their own. Your tetanus was updated. He declined an x-ray of your arm if you do have increased pain you are welcome to return and we can x-ray at at any time. (Please note that included in your discharge packet is information concerning opioid safety and pain management. This information is given to all patients were discharged from the ER regardless of their discharge diagnosis or the medicines they usually take or are prescribed.) Print Language: [place] Coding Level of Care Code ED Transmission And Coordination Engineer for Edwin Paige
[2025-07-21] MEDS: tetanus-dipt-pertussis 0.5 mL SDV IM (22:32)
== END 2025-07-21 22:55 | disposition home or self-care (01) ==
PROVIDERS: Emergency Provider Family Medicine; PCP Family Medicine
DX: S41.111A Laceration without foreign body of right upper arm, initial encounter (principal); Z79.82 Long term (current) use of aspirin; W17.89XA Other fall from one level to another, initial encounter
CPT/HCPCS: 90471; 90715; 99283

== ENCOUNTER → 2025-07-28 12:51 | Outpatient (BNVA) | payer MEDICARE, OTHER, SELFPAY | PROVIDERS: PCP Family Medicine; Visit Provider Family Medicine | DX: I47.10 Supraventricular tachycardia, unspecified (principal); E16.2 Hypoglycemia, unspecified | CPT/HCPCS: 83036; 84439; 84443 ==

== ENCOUNTER → 2025-08-07 09:29 | Outpatient (BNVA) | payer MEDICARE, OTHER, SELFPAY | PROVIDERS: PCP Family Medicine; Referring Provider Family Medicine; Visit Provider Internal Medicine | DX: E16.A3 Hypoglycemia level 3 (principal) | CPT/HCPCS: 99204 ==

== ENCOUNTER 2025-08-19 08:00 | Oncology outpatient (recurring) (ONCR) | payer MEDICARE, OTHER, SELFPAY ==
[2025-08-19] MEDS: cosyntropin 0.25 mg SDV IVP (09:00)
[2025-08-19 09:30] LABS: Cosyntropin Baseline 15.68 mcg/dL
[2025-08-19 09:32] LABS: Free T4 Free Thyroxine 1.16 ng/dL (0.82-1.77); Thyroid Stimulating Hormone 2.07 uIU/mL (0.27-4.20)
[2025-08-19 10:36] VITALS: BP 162/80; PULSE 90; RESP 16; TEMP 36.6; O2SAT 98
[2025-08-19 10:53] LABS: Cosyntropin 30 Minute 25.30 mcg/dL
[2025-08-19 10:57] LABS: Cosyntropin 1 Hour 27.88 mcg/dL
== END 2025-08-19 23:59 | disposition home or self-care (01) ==
PROVIDERS: PCP Family Medicine; Visit Provider Internal Medicine
DX: R79.89 Other specified abnormal findings of blood chemistry (principal); I47.10 Supraventricular tachycardia, unspecified; Z79.899 Other long term (current) drug therapy
CPT/HCPCS: 82533; 84439; 84443; 96374; J0834

== ENCOUNTER → 2025-08-26 09:34 | Outpatient (BNVA) | payer MEDICARE, OTHER, SELFPAY | PROVIDERS: PCP Family Medicine; Visit Provider Physician Assistant | DX: S49.91XA Unspecified injury of right shoulder and upper arm, initial encounter (principal); Z96.619 Presence of unspecified artificial shoulder joint; X58.XXXA Exposure to other specified factors, initial encounter | CPT/HCPCS: 73030; 99213 ==

== ENCOUNTER → 2025-08-28 08:11 | Outpatient (BNVA) | payer MEDICARE, OTHER, SELFPAY | PROVIDERS: PCP Family Medicine; Referring Provider Family Medicine; Visit Provider Internal Medicine | DX: E16.A3 Hypoglycemia level 3 (principal) | CPT/HCPCS: 99214 ==

== ENCOUNTER → 2025-09-24 08:55 | Outpatient (BNVA) | payer MEDICARE, OTHER, SELFPAY | PROVIDERS: PCP Family Medicine; Visit Provider Student in an Organized Health Care Education/Training Program | DX: Z96.611 Presence of right artificial shoulder joint (principal); M70.22 Olecranon bursitis, left elbow | CPT/HCPCS: 73030; 99213 ==

== ENCOUNTER → 2025-10-07 13:13 | Outpatient (BNVA) | payer MEDICARE, OTHER, SELFPAY | PROVIDERS: PCP Family Medicine; Visit Provider Physician Assistant | DX: M70.22 Olecranon bursitis, left elbow (principal) | CPT/HCPCS: 99213 ==